=== PATIENT | female | born 1965 ===

== ENCOUNTER 2020-07-29 14:28 | Outpatient (REF) | payer MEDICAID, SELFPAY ==
--- NOTE | ~2020-07-29 | XR_ITS ---
EXAMINATION: XR SHOULDER, LEFT CLINICAL INFORMATION: Pain COMPARISON: Left humerus x-ray May 2019 and previous chest x-ray April 2019 TECHNIQUE: AP external rotation, Grashey, scapular Y, and axillary views of the left shoulder. FINDINGS: Bone alignment is normal. No fracture or dislocation is seen. The glenohumeral joint is normal. There is arthritis at the acromioclavicular joint. The aortic arch may be tortuous or ectatic. This is similar to previous exams. Soft tissues are otherwise unremarkable. XR/XR shoulder LT min 2V IMPRESSION: Arthritis at the acromioclavicular joint.
== END 2020-07-29 14:29 | disposition home or self-care (01) ==
LOC: HO.XRAY 14:28
PROVIDERS: PCP Internal Medicine; Visit Provider Internal Medicine
DX: M25.512 Pain in left shoulder (principal)
CPT/HCPCS: 73030

== ENCOUNTER 2020-08-31 15:27 | Outpatient (REF) | payer MEDICAID, SELFPAY ==
--- NOTE | ~2020-08-31 | US_ITS ---
EXAMINATION: US PELVIS COMPLETE CLINICAL INFORMATION: Abnormal vaginal bleeding. COMPARISON: Ultrasound pelvis 09/18/2018 TECHNIQUE: Transabdominal and transvaginal imaging of pelvis is performed. FINDINGS: The uterus is anteverted measuring 8.8 cm in length, 4.2 cm in AP and 4.7 cm wide. There are 2 hypoechoic lesions seen. 1. Lesion in the right fundus of uterus is complex and cystic and measures 2.5 x 2.4 x 3.4 cm. Previously it measured 1.2 x 1.5 x 1.4 cm. 2. Lesion in the lower anterior uterine segment measures 1.1 x 1.3 x 1.7 cm and is new. The endometrial thickness is 0.3 cm and appears unremarkable. The right ovary measures 1.8 x 1.8 x 1.0 cm and volume 1.7 mL. There are 2 anechoic lesions in the paraovarian region. They measure 1.7 x 1.2 x 1.2 cm and 1.4 x 1.1 x 1.0 cm. There is a tubular anechoic area in the right adnexa, question hydrosalpinx. The left ovary is not visualized. Previously it measured 2.7 x 1.7 x 2.2 cm and volume 5.2 mL. There is no free fluid in the cul-de-sac. US/US transvaginal IMPRESSION: Two paraovarian lesions likely moderate cysts. Two uterine fibroids. The larger uterine fibroid appears now complex and cystic compared to solid lesion before. There is a new fibroid visualized. The left ovary is not seen. There is no free fluid in the cul-de-sac.
--- NOTE | ~2020-08-31 | US_ITS ---
EXAMINATION: US PELVIS COMPLETE CLINICAL INFORMATION: Abnormal vaginal bleeding. COMPARISON: Ultrasound pelvis 09/18/2018 TECHNIQUE: Transabdominal and transvaginal imaging of pelvis is performed. FINDINGS: The uterus is anteverted measuring 8.8 cm in length, 4.2 cm in AP and 4.7 cm wide. There are 2 hypoechoic lesions seen. 1. Lesion in the right fundus of uterus is complex and cystic and measures 2.5 x 2.4 x 3.4 cm. Previously it measured 1.2 x 1.5 x 1.4 cm. 2. Lesion in the lower anterior uterine segment measures 1.1 x 1.3 x 1.7 cm and is new. The endometrial thickness is 0.3 cm and appears unremarkable. The right ovary measures 1.8 x 1.8 x 1.0 cm and volume 1.7 mL. There are 2 anechoic lesions in the paraovarian region. They measure 1.7 x 1.2 x 1.2 cm and 1.4 x 1.1 x 1.0 cm. There is a tubular anechoic area in the right adnexa, question hydrosalpinx. The left ovary is not visualized. Previously it measured 2.7 x 1.7 x 2.2 cm and volume 5.2 mL. There is no free fluid in the cul-de-sac. US/US pelvic complete IMPRESSION: Two paraovarian lesions likely moderate cysts. Two uterine fibroids. The larger uterine fibroid appears now complex and cystic compared to solid lesion before. There is a new fibroid visualized. The left ovary is not seen. There is no free fluid in the cul-de-sac.
== END 2020-08-31 15:28 | disposition home or self-care (01) ==
LOC: HO.US 15:27
PROVIDERS: Visit Provider Family Medicine
DX: N93.8 Other specified abnormal uterine and vaginal bleeding (principal)
CPT/HCPCS: 76830; 76856

== ENCOUNTER 2021-02-08 19:30 | Emergency (ER) | payer MEDICAID, SELFPAY ==
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
[2021-02-08 19:38] VITALS: BP 130/72; BP 175/69; PULSE 101; PULSE 106; RESP 16; TEMP 36.2; O2SAT 98; BMI 26.5
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
[2021-02-08] MEDS: Ketorolac Tromethamine 15 MG/ML VIAL IM (20:20)
[2021-02-08] MEDS: Diphth,Pertus(ACell),Tet Adult 0.5 ML SYRINGE IM (20:23)
[2021-02-08] MEDS: dexAMETHasone 2 MG TABLET 10 MG PO (20:29)
== END 2021-02-08 21:18 | disposition home or self-care (01) ==
PROVIDERS: Emergency Provider Student in an Organized Health Care Education/Training Program
DX: S20.213A Contusion of bilateral front wall of thorax, initial encounter (principal); R07.81 Pleurodynia; V19.9XXA Pedal cyclist (driver) (passenger) injured in unspecified traffic accident, initial encounter; Y93.55 Activity, bike riding; Y92.410 Unspecified street and highway as the place of occurrence of the external cause; Y99.9 Unspecified external cause status; F41.9 Anxiety disorder, unspecified; F43.0 Acute stress reaction; R05 Cough; Z79.899 Other long term (current) drug therapy
CPT/HCPCS: 71046; 90471; 90715; 96372; 99284; J1790; J1885; J8540

== ENCOUNTER 2021-02-22 03:36 | Emergency (ER) | payer MEDICAID, SELFPAY ==
--- NOTE | ~2021-02-22 | XR_ITS ---
EXAMINATION: XR CHEST CLINICAL INFORMATION: Cough COMPARISON: 02/08/2021 TECHNIQUE: Frontal view of the chest was obtained. FINDINGS: Normal symmetric lung volumes. No parenchymal consolidation. No pleural effusion. No pneumothorax. Cardiomediastinal silhouette and pulmonary vascularity are within normal limits. Aorta is atherosclerotic. No acute osseous abnormalities. XR/XR chest 1V IMPRESSION: Unremarkable examination.
[2021-02-22 03:45] VITALS: BP 140/100; BP 142/91; PULSE 109; PULSE 98; RESP 16; TEMP 36.2; O2SAT 98; O2SAT 99; BMI 25.6
--- NOTE | 2021-02-22 03:52 | ECG_ITS ---
Test Reason : ASTHMA Blood Pressure : / mmHG Vent. Rate : 082 BPM Atrial Rate : 082 BPM P-R Int : 128 ms QRS Dur : 096 ms QT Int : 384 ms P-R-T Axes : 062 -15 033 degrees QTc Int : 448 ms Normal sinus rhythm Nonspecific ST and T wave abnormality Abnormal ECG When compared with ECG of 08-JUL-2019 15:24, No significant change was found Referred By: Generic ED Physician Electronically Signed By:JAZMYNE NETTLES
[2021-02-22 03:54] VITALS: BP 142/91; PULSE 98; RESP 16; TEMP 36.2; O2SAT 99
[2021-02-22 04:19] LABS: MANUAL DIFF FLAG NO
[2021-02-22 04:20] LABS: Basophils Absolute Auto 0.1 X10*3/uL (0.0-0.2); Basophils Percent Auto 0.6 % (0-2); Eosinophils Absolute Auto 0.4 X10*3/uL (0.0-0.4); Eosinophils Percent Auto 3.9 % (0-4); Hematocrit 34.7 % (37-47); Hemoglobin 12.2 g/dl (12.0-16.0); Imm Gran Abs Auto 0.04 X10*3/uL (0.00-0.03); Imm Gran Pct Auto 0.4 % (0.0-0.4); Lymphocytes Absolute Auto 1.6 X10*3/uL (1.2-4.9); Lymphocytes Percent Auto 16.8 % (20-40); Mean Corpuscular HGB Conc 35.2 g/dl (31.0-35.0); Mean Corpuscular Volume 85.3 fL (80-98); Mean Platelet Volume 10.3 fL (9.4-12.3); Monocytes Absolute Auto 0.7 X10*3/uL (0.1-1.2); Neutrophils Absolute Auto 6.9 X10*3/uL (2.0-8.3); Neutrophils Percent Auto 71.3 % (45-73); Platelet Count 234 X10*3/uL (160-400); Red Blood Count 4.07 X10*6/uL (4.20-5.50); Red Cell Distribution Width 12.5 % (11.0-16.0); White Blood Count 9.6 X10*3/uL (4.8-10.8)
[2021-02-22 04:36] LABS: COVID-19 Test Negative (Negative); IDNOW Serial# 9DD0AD1C
[2021-02-22 04:38] LABS: Anion Gap 17 (12-20); Blood Urea Nitrogen 29 mg/dL (9-16); Calcium 10.1 mg/dL (8.4-10.2); Carbon Dioxide 29 mmol/L (22-29); Chloride 93 mmol/L (96-108); Creatinine Clr Calc Pharmacy 50.7; Estimated Glomerular Filt Rate 53; Glucose Random 250 mg/dL (60-115); Potassium 2.9 mmol/L (3.3-5.1); Sodium 136 mmol/L (135-145)
[2021-02-22 04:43] LABS: B Type Natriuretic Peptide < 10 pg/mL (<100); Troponin-I High Sensitivity < 3.5 ng/L (<3.5-17.0)
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
[2021-02-22] MEDS: Albuterol Sulfate 90 MCG 8 GM INHALER 4 PUFF INHALE (04:53)
[2021-02-22] MEDS: methylPREDNISolone Sod Succ 125 MG/2 ML VIAL IVPUSH (04:54)
[2021-02-22 05:35] VITALS: BP 142/83; PULSE 112; RESP 16; O2SAT 98
[2021-02-22] MEDS: Potassium Chloride ER 20 MEQ TAB.ER.PRT 60 MEQ PO (05:35)
[2021-02-22] MEDS: Albuterol Sulfate (0.083%) 2.5 MG/3 ML VIAL.NEB 5 MG INHALE (06:42)
[2021-02-22 06:43] VITALS: PULSE 112; O2SAT 98
== END 2021-02-22 07:34 | disposition home or self-care (01) ==
PROVIDERS: Emergency Provider Student in an Organized Health Care Education/Training Program; PCP Internal Medicine
DX: J45.902 Unspecified asthma with status asthmaticus (principal); R05 Cough; E87.6 Hypokalemia; R51.9 Headache, unspecified; R06.02 Shortness of breath; Z20.822 Contact with and (suspected) exposure to COVID-19; Z79.899 Other long term (current) drug therapy
CPT/HCPCS: 36415; 71045; 80048; 83880; 84484; 85025; 87635; 93005; 94640; 96374; 99284; 99285; J2930

== ENCOUNTER 2021-02-26 10:58 | Emergency (ER) | payer MEDICAID, SELFPAY ==
--- NOTE | ~2021-02-26 | XR_ITS ---
EXAMINATION: XR CHEST CLINICAL INFORMATION: Cough COMPARISON: Chest radiograph from 02/22/2021 TECHNIQUE: 2 views of the chest were obtained. FINDINGS: No focal consolidation. No pneumothorax. Trachea is midline. Cardiomediastinal silhouette is not enlarged. No large pleural effusions. Degenerative changes of the thoracolumbar spine. Soft tissues are unremarkable. XR/XR chest 2V IMPRESSION: No acute cardiopulmonary process.
--- NOTE | ~2021-02-26 | CT_ITS ---
EXAMINATION: CT ABDOMEN AND PELVIS WITH CONTRAST CLINICAL INFORMATION: Left lower quadrant pain, left CVA tenderness COMPARISON: None TECHNIQUE: Multidetector volumetric images were obtained from the superior aspect of the liver through the pubic symphysis following administration 85 mL of Omnipaque 350 intravenous contrast. Sagittal and coronal reformatted images were obtained on the technologist's workstation. Oral contrast: No This CT examination was performed using dose optimization techniques as appropriate, variously including the following: *Automated exposure control *Adjustment of mA and/or kV according to patient size (this includes techniques or standardized protocols for targeted exams where dose is matched to indication/reason for exam; i.e. extremities or head) *Use of iterative reconstruction technique DLP: 472.31 mGy-cm FINDINGS: LUNG BASES: The heart is not enlarged. No pericardial effusion. LIVER, GALLBLADDER, AND BILIARY TREE: The liver is normal in shape. Enlarged right hepatic lobe. Decreased hepatic attenuation suggesting hepatic steatosis. No focal hepatic lesion or biliary ductal dilatation is present. The gallbladder is unremarkable with no evidence of radiopaque gallstones, gallbladder wall thickening, or obvious pericholecystic inflammatory changes. PANCREAS: Unremarkable. SPLEEN: Unremarkable. Subcentimeter cystic foci are noted at the inferior pole of the spleen, nonspecific and too small to characterize. ADRENAL GLANDS: Unremarkable. KIDNEYS AND URETERS: Multiple hypodensities in the right kidney the largest appearing in the right renal upper pole demonstrating fluid attenuation, statistically representing a cyst measuring up to 3.0 cm. The kidneys are normal in size, shape, and attenuation. No hydronephrosis, hydroureter, or calculi seen. No perinephric stranding. BLADDER: Unremarkable. GASTROINTESTINAL TRACT: Very slight colonic diverticulosis without acute diverticulitis. The small and large bowel are unremarkable. The appendix is unremarkable. ABDOMINAL WALL: No significant hernia is appreciated. LYMPH NODES: No enlarged lymph nodes per size criteria. VASCULAR: Abdominal aorta is nonaneurysmal. Pelvic phleboliths are visualized. PELVIC VISCERA: Uterine fundal hypodensity noted measuring 1.9 cm demonstrating fluid attenuation possibly representing a degenerating fibroid versus cyst. OSSEOUS STRUCTURES: Very mild degenerative changes of the thoracolumbar spine. No large lytic or blastic lesions are noted. CT/CT abdomen pelvis w con IMPRESSION: 1. No acute process of the abdomen or pelvis identified. 2. Decreased hepatic attenuation suggesting hepatic steatosis. 3. Enlargement of the right hepatic lobe. 4. Subcentimeter cystic foci are noted at the inferior pole of the spleen, nonspecific and too small to characterize. 5. Right renal hypodensities demonstrating fluid attenuation, statistically representing cysts. 6. Very mild colonic diverticulosis without acute diverticulitis. 7. Uterine fundal hypodensity noted measuring 1.9 cm demonstrating fluid attenuation possibly representing a degenerating fibroid versus cyst.
[2021-02-26 11:02] VITALS: BP 147/86; PULSE 81; RESP 16; TEMP 36.3; O2SAT 98; BMI 25.7
--- NOTE | 2021-02-26 11:18 | ED.RECABL ---
HPI - Recheck/Abnormal Lab/Rx General Chief Complaint: Recheck/Abnormal Lab/Rx Stated Complaint: abnormal labs - ?potassium levels Time Seen by Provider: 02/26/21 11:17 Source: patient Mode of arrival: ambulatory Limitations: no limitations History of Present Illness HPI narrative: 55-year-old female presents for lab check after being sent here from the clinic she went to yesterday. Patient has a past medical history of asthma, hypertension, anxiety, was seen in our emergency room for asthma 4 days ago. Patient had a potassium of that time of 2.9. She was given 40 mg a day of prednisone, and a fluticasone inhaler. Patient states she cannot use her nebulizer at home because she has electricity at home. States that she got pain all over her body from using the fluticasone inhaler, she was shaking and itching. She has still been a little short of breath and a little wheezy with chest pain that feels like her asthma. She has had this chest pain for 2 days. States she has pain in her abdomen, especially left lower quadrant pain that started 2 days ago. She had diarrhea twice yesterday, no nausea or vomiting. Pt is post-menopausal. Related Data Previous Rx's Medication Instructions Recorded fluticasone 500 mcg-salmeterol 50 1 inh INHALATION Q12H #1 ea 05/25/ mcg/dose blistr powdr for inhalation prednisone 20 mg tablet 40 mg PO DAILY 4 Days #8 tab 02/22/21 potassium chloride 10 mEq 10 meq PO DAILY 30 Days #30 cap 02/26/21 capsule,extended release prednisone 20 mg tablet 60 mg PO DAILY 5 Days #15 tab 02/26/21 Allergies Allergy/AdvReac Type Severity Reaction Status Date / Time apple [Apple] Allergy Severe ANAPHYLAXIS Unverified 02/27/20 17:43 avocado [Avocado] Allergy Severe ANAPHYLAXIS Unverified 02/27/20 17:43 fexofenadine [From RALPH] Allergy Severe ANAPHYLAXIS Unverified 02/27/20 17:43 peanut [Peanut] Allergy Severe ANAPHYLAXIS Unverified 02/27/20 17:43 acetaminophen [Percocet] Allergy Unknown nausea and Verified 11/12/18 00:00 vomiting Ralph Allergy Unknown rash, Unverified 11/12/18 00:00 swollen throat naproxen [From NAPROSYN] Allergy Unknown UNKNOWN Unverified 02/27/20 17:43 oxycodone [From PERCOCET] AdvReac Severe NAUSEA, Unverified 02/27/20 17:43 DIZZINESS, FALLS Review of Systems Constitutional: Constitutional: Reports body ache(s), Denies chills, Denies fatigue, Denies fever(s), Denies headache(s), Denies malaise and Denies weakness Eyes: Eyes: Denies diplopia ENT: Denies vertigo, Denies dizziness, Denies otalgia, Denies headache(s), Denies mouth pain, Denies post nasal drip, Denies sinus pain, Denies sinus pressure, Denies sore throat and Denies throat swelling Cardiovascular: Cardiovascular: Reports chest pain, Denies syncope, Denies leg edema, Denies lightheadedness, Denies Loss of Consciousness, Denies palpitations and Reports dyspnea Respiratory: Respiratory: Reports chest congestion, Reports cough, Reports dyspnea and Reports wheezing Gastrointestinal: Gastrointestinal: Reports abdominal pain, Denies hematochezia, Denies constipation, Reports diarrhea and Denies vomiting Genitourinary: Genitourinary: Reports no additional female genitourinary complaints Musculoskeletal: Musculoskeletal: Reports myalgias Integumentary/Breasts: Skin/Breast: Denies erythema and Denies rash Neurologic: Denies confusion, Denies vertigo, Denies dizziness, Denies syncope, Denies headache(s) and Denies weakness Psychiatric: Psychiatric: Reports anxiety, Denies confusion and Denies depression Endocrine: Endocrine: Denies fatigue and Denies palpitations Allergic/Immunologic: Allergic/Immunologic: Denies throat swelling and Reports wheezing PMFSH Past Medical History Medical History Anxiety Diabetes Hypertension Social History Social History Alcohol intake: current Alcohol intake frequency: holidays/special occasions only Patient Tobacco Use Status: Never used Tobacco Use of substances other than those prescribed or required for medical reasons: No Substance Use Type: Marijuana Advance Directives: No Advance Directives Information Provided: No Patient : No Physical Exam Vital Signs: Vital Signs: Last Vital Signs Temp 97.4 F 02/26/21 11:02 Pulse 60 02/26/21 14:16 Resp 16 02/26/21 12:22 BP 126/71 02/26/21 12:22 Pulse Ox 95 02/26/21 12:22 Body Mass Index 25.7 Const: General: No confusion Nutritional Appearance: well nourished Orientation/consciousness: No confusion Limitations: no limitations HENMT: Head: Yes normal to inspection, Yes normocephalic and Yes atraumatic Ears: hearing grossly normal bilaterally Mouth: Normal oral and palatal mucosa present Throat: Yes posterior oropharynx normal Eyes: Conjunctivae: conjunctivae normal Pupils: Equal, round and reactive pupils present EOM: EOMs intact bilaterally Neck: Neck: Yes full ROM, Yes no lymphadenopathy and Yes supple Resp: Effort & Inspection: normal respiratory effort and able to speak in complete sentences Auscultation: no crackles, no rales, no rhonchi and wheezes throughout Cardio: Rate: regular rate Rhythm: regular rhythm Heart sounds: S1 normal heart sound present and S2 normal heart sound present GI: Inspection: Yes normal to inspection Palpation (GI): Soft to palpation, not firm, Tenderness to palpation present (GI) in the LLQ, Guarding due to palpation present (GI) in the LLQ and not rigid Percussion: Yes normal to percussion Auscultation: normal bowel sounds : General: Yes CVA tenderness on the left Back/Spine/Pelvis: Back: CVA tenderness Skin: General skin exam: no rashes or lesions noted Neuro: General: No confusion Cranial nerves: Yes Equal, round and reactive pupils present Extrem: General: Yes normal to inspection and Yes full ROM Psych: Appearance: grossly normal Affect: Anxious affect present Attitude: cooperative Thought process: Normal thought process present Course Course Course Narrative: 55-year-old female presents for pain ?all over? after using fluticasone inhaler 3 days ago. Also has had 2 days of lower left quadrant pain. On exam, patient has stable vitals, patient is tender and guarding in her left lower quadrant with left CVA tenderness. Lungs are wheezy diffusely, patient is not in respiratory distress. Will get x-ray, labs, EKG, CT abdomen. Reevaluation(s) Reevaluation #1: Patient's potassium of 3.2, glucose of 263, LFTs are normal. Repleted potassium with oral potassium Troponin and lipase are negative, EKG shows no acute ischemia Chest x-ray shows no consolidation, and COVID is negative Reevaluation #2: Patient refused albuterol inhaler, will try albuterol nebulizer Reevaluation #3: Patient is moving much better air, lungs clear to auscultation bilaterally, wheezes have resolved. CT abdomen shows nothing acute, shows fatty liver, cysts and spleen and kidneys, a uterine fibroid, mild diverticulosis, no diverticulitis. Will send patient home with potassium supplements, increase her prednisone, counseled her to find a way to plug in her nebulizer machine so she can get a nebulizer treatment at least twice a day despite not having electricity in her apartment, patient refuses albuterol inhaler, as she thinks the gives her pain. Counseled Tylenol for pain. Counseled follow-up with her primary care MDM - Recheck/Abnormal Lab/Rx Lab Data Result diagrams: 02/26/21 11:42 02/26/21 11:42 Labs: Lab Results 02/26/21 02/26/21 02/26/21 Range/Units 11:42 11:42 11:45 WBC 7.0 (4.8-10.8) X10*3/uL RBC 3.96 L (4.20-5.50) X10*6/uL Hgb 11.8 L (12.0-16.0) g/dl Hct 34.3 L (37-47) % MCV 86.6 (80-98) fL MCH 29.8 (27.0-33.0) pg MCHC 34.4 (31.0-35.0) g/dl RDW 12.6 (11.0-16.0) % Plt Count 218 (160-400) X10*3/uL MPV 10.5 (9.4-12.3) fL Immature Gran % (Auto) 0.3 (0.0-0.4) % Neut % (Auto) 61.3 (45-73) % Lymph % (Auto) 27.9 (20-40) % [place] % (Auto) 6.6 (2-11) % Eos % (Auto) 3.6 (0-4) % Baso % (Auto) 0.3 (0-2) % Lymph # (Auto) 1.9 (1.2-4.9) X10*3/uL [place] # (Auto) 0.5 (0.1-1.2) X10*3/uL Eos # (Auto) 0.3 (0.0-0.4) X10*3/uL Baso # (Auto) 0.0 (0.0-0.2) X10*3/uL Abs Immat Gran (auto) 0.02 (0.00-0.03) X10*3/uL Absolute Neuts (auto) 4.3 (2.0-8.3) X10*3/uL Absolute Nucleated RBC 0.000 (0.0-0.012) X10*3/uL Nucleated RBC % (auto) 0.0 (0.0-0.2) /100WBC Sodium 136 (135-145) mmol/L Potassium 3.2 L (3.3-5.1) mmol/L Chloride 94 L (96-108) mmol/L Carbon Dioxide 33 H (22-29) mmol/L Anion Gap 12 (12-20) BUN 22 H (9-16) mg/dL Creatinine 1.06 (0.5-1.4) mg/dL Estim Creat Clear Calc 51.4 Estimated GFR 53 Random Glucose 263 H (60-115) mg/dL Calcium 9.9 (8.4-10.2) mg/dL Total Bilirubin 0.6 (0.0-1.0) mg/dL AST 17 (5-31) U/L ALT 25 (0-31) U/L Alkaline Phosphatase 77 (39-117) U/L Troponin I High Sens (<3.5-17.0) ng/L Total Protein 7.0 (6.5-8.0) g/dL Albumin 4.5 (3.5-5.0) g/dL Lipase (8-78) U/L Urine Color YELLOW Urine Appearance CLEAR Urine pH 6.0 (5.0-8.0) Ur Specific [place] >= 1.030 H (1.005-1.025) Urine Protein NEG (NEG-TRACE) MG/DL Urine Glucose (UA) NEG (NEG) MG/DL Urine Ketones NEG (NEG) MG/DL Urine Blood NEG (NEG) Urine Nitrite NEG (NEG) Ur Leukocyte Esterase NEG (NEG) COVID-19 (NIGEL) (Negative) COVID-19 Clin Com 02/26/21 02/26/2121 Range/Units 12:32 12:32 12:32 WBC (4.8-10.8) X10*3/uL RBC (4.20-5.50) X10*6/uL Hgb (12.0-16.0) g/dl Hct (37-47) % MCV (80-98) fL MCH (27.0-33.0) pg MCHC (31.0-35.0) g/dl RDW (11.0-16.0) % Plt Count (160-400) X10*3/uL MPV (9.4-12.3) fL Immature Gran % (Auto) (0.0-0.4) % Neut % (Auto) (45-73) % Lymph % (Auto) (20-40) % [place] % (Auto) (2-11) % Eos % (Auto) (0-4) % Baso % (Auto) (0-2) % Lymph # (Auto) (1.2-4.9) X10*3/uL [place] # (Auto) (0.1-1.2) X10*3/uL Eos # (Auto) (0.0-0.4) X10*3/uL Baso # (Auto) (0.0-0.2) X10*3/uL Abs Immat Gran (auto) (0.00-0.03) X10*3/uL Absolute Neuts (auto) (2.0-8.3) X10*3/uL Absolute Nucleated RBC (0.0-0.012) X10*3/uL Nucleated RBC % (auto) (0.0-0.2) /100WBC Sodium (135-145) mmol/L Potassium (3.3-5.1) mmol/L Chloride (96-108) mmol/L Carbon Dioxide (22-29) mmol/L Anion Gap (12-20) BUN (9-16) mg/dL Creatinine (0.5-1.4) mg/dL Estim Creat Clear Calc Estimated GFR Random Glucose (60-115) mg/dL Calcium (8.4-10.2) mg/dL Total Bilirubin (0.0-1.0) mg/dL AST (5-31) U/L ALT (0-31) U/L Alkaline Phosphatase (39-117) U/L Troponin I High Sens < 3.5 (<3.5-17.0) ng/L Total Protein (6.5-8.0) g/dL Albumin (3.5-5.0) g/dL Lipase 11 (8-78) U/L Urine Color Urine Appearance Urine pH (5.0-8.0) Ur Specific [place] (1.005-1.025) Urine Protein (NEG-TRACE) MG/DL Urine Glucose (UA) (NEG) MG/DL Urine Ketones (NEG) MG/DL Urine Blood (NEG) Urine Nitrite (NEG) Ur Leukocyte Esterase (NEG) COVID-19 (NIGEL) Negative (Negative) COVID-19 Clin Com See Note ECG Data Interpretation: Sinus at a rate of 68, NV 120, QRS 102, QTC 465, normal axis, no ST elevations or depressions, nonspecific T-wave flattening Discharge Plan Discharge Clinical Impression: Acute hypokalemia Abdominal pain Qualifiers: Abdominal location: left lower quadrant Qualified Code(s): R10.32 - Left lower quadrant pain Asthma Qualifiers: Asthma severity: moderate Asthma persistence: unspecified Asthma complication type: with acute exacerbation Qualified Code(s): J45.901 - Unspecified asthma with (acute) exacerbation Patient Disposition: Home, Self-Care Instructions: Asthma (ED), Hypokalemia (ED), Abdominal Pain (ED) Additional Instructions: Please take potassium supplements I have prescribed for you. Foods that contain a lot of potassium include dark leafy green and orange juice. Please STOP the prednisone prescription you have now and START the prednisone prescription I am prescribing for you today Please find a way to plug in your nebulizer machine so you can get at least 2 treatments a day for the next 5 days. Call your primary care provider this afternoon for follow-up appointment within the next 2 weeks. You will need to have your potassium rechecked in the next 2 weeks. Prescriptions: New prednisone 20 mg tablet 60 mg PO DAILY 5 Days Qty: 15 RF: 0 potassium chloride 10 mEq capsule, extended release 10 meq PO DAILY 30 Days Qty: 30 RF: 0 No Action fluticasone propion-salmeterol 500-50 mcg/dose blister with device 1 inh inhalation Q12H Qty: 1 RF: 8 prednisone 20 mg tablet 40 mg PO DAILY 4 Days Qty: 8 RF: 0
[2021-02-26 11:54] LABS: MANUAL DIFF FLAG NO
[2021-02-26 11:56] LABS: Basophils Percent Auto 0.3 % (0-2); Eosinophils Absolute Auto 0.3 X10*3/uL (0.0-0.4); Eosinophils Percent Auto 3.6 % (0-4); Hematocrit 34.3 % (37-47); Hemoglobin 11.8 g/dl (12.0-16.0); Imm Gran Abs Auto 0.02 X10*3/uL (0.00-0.03); Imm Gran Pct Auto 0.3 % (0.0-0.4); Lymphocytes Absolute Auto 1.9 X10*3/uL (1.2-4.9); Lymphocytes Percent Auto 27.9 % (20-40); Mean Corpuscular HGB Conc 34.4 g/dl (31.0-35.0); Mean Corpuscular Hemoglobin 29.8 pg (27.0-33.0); Mean Corpuscular Volume 86.6 fL (80-98); Mean Platelet Volume 10.5 fL (9.4-12.3); Monocytes Absolute Auto 0.5 X10*3/uL (0.1-1.2); Monocytes Percent Auto 6.6 % (2-11); Neutrophils Absolute Auto 4.3 X10*3/uL (2.0-8.3); Neutrophils Percent Auto 61.3 % (45-73); Platelet Count 218 X10*3/uL (160-400); Red Blood Count 3.96 X10*6/uL (4.20-5.50); Red Cell Distribution Width 12.6 % (11.0-16.0)
--- NOTE | 2021-02-26 12:03 | ECG_ITS ---
Test Reason : LOW POTASSIUM Blood Pressure : / mmHG Vent. Rate : 068 BPM Atrial Rate : 068 BPM P-R Int : 128 ms QRS Dur : 102 ms QT Int : 438 ms P-R-T Axes : 016 -19 029 degrees QTc Int : 465 ms Normal sinus rhythm Incomplete right bundle branch block Nonspecific T wave abnormality Prolonged QT Abnormal ECG When compared with ECG of 22-FEB-2021 04:09, Nonspecific T wave abnormality no longer evident in Lateral leads Referred By: Demi Moeller Electronically Signed By:JAZMYNE NETTLES
[2021-02-26 12:05] LABS: Appearance Urine CLEAR; Color Urine YELLOW; Glucose Urine UA NEG (NEG); Leukocyte Esterase Urine NEG (NEG); Nitrite Urine NEG (NEG); Specific Gravity - Urine >= 1.030 (1.005-1.025); Urine Blood NEG (NEG); Urine Ketones NEG (NEG); Urine Protein NEG (NEG-TRACE)
[2021-02-26 12:12] LABS: Alanine Aminotransferase 25 U/L (0-31); Albumin Level 4.5 g/dL (3.5-5.0); Alkaline Phosphatase 77 U/L (39-117); Anion Gap 12 (12-20); Aspartate Amino Transferase 17 U/L (5-31); Bilirubin Total 0.6 mg/dL (0.0-1.0); Blood Urea Nitrogen 22 mg/dL (9-16); Calcium 9.9 mg/dL (8.4-10.2); Carbon Dioxide 33 mmol/L (22-29); Chloride 94 mmol/L (96-108); Creatinine Clr Calc Pharmacy 51.4; Estimated Glomerular Filt Rate 53; Glucose Random 263 mg/dL (60-115); Potassium 3.2 mmol/L (3.3-5.1); Sodium 136 mmol/L (135-145)
[2021-02-26] MEDS: ondansetron HCL 4 MG/2 ML VIAL IVPUSH (12:15)
[2021-02-26] MEDS: 0.9 % Sodium Chloride 1,000 ML 999 ML IV (12:15)
[2021-02-26] MEDS: Morphine Sulfate 4 MG/ML CARTRIDGE IVPUSH (12:18)
[2021-02-26] MEDS: methylPREDNISolone Sod Succ 125 MG/2 ML VIAL IVPUSH (12:20)
[2021-02-26 12:22] VITALS: BP 126/71; PULSE 69; RESP 16; O2SAT 95
--- NOTE | 2021-02-26 12:24 | PC.NURSE ---
Pt reports not feeling well after having nebulizer treatment including body aches, shaking and itching. Pt remains with exp wheezes today and ls tight. Pt also reports llq abd pain x 3 days, worse since seen here 3 days ago. no nausea/vomiting. Pt also states sent here for low k+, nsr on tele rate 60s, ekg completed
--- NOTE | 2021-02-26 12:39 | PC.NURSE ---
out of room for xray
[2021-02-26 12:59] LABS: Lipase 11 U/L (8-78)
[2021-02-26 13:05] LABS: Troponin-I High Sensitivity < 3.5 ng/L (<3.5-17.0)
[2021-02-26 13:13] LABS: COVID-19 Test Negative (Negative); IDNOW Serial# 9DD0AD1C
[2021-02-26] MEDS: Potassium Chloride Packet 20 MEQ PACKET 40 MEQ PO (13:52)
[2021-02-26] MEDS: iohexoL 350 MG/ML 100 ML INFUS..BTL IV (13:58)
[2021-02-26] MEDS: Albuterol/Iprat 2.5/0.5MG 3 ML AMPUL.NEB INHALE (14:13)
[2021-02-26 14:16] VITALS: PULSE 60
[2021-02-26 15:25] VITALS: BP 129/83; PULSE 68; RESP 18; O2SAT 96
== END 2021-02-26 15:30 | disposition home or self-care (01) ==
PROVIDERS: Physician Assistant; Emergency Provider Emergency Medicine; PCP Internal Medicine
DX: E87.6 Hypokalemia (principal); J45.901 Unspecified asthma with (acute) exacerbation; R79.89 Other specified abnormal findings of blood chemistry; R10.32 Left lower quadrant pain; Z20.822 Contact with and (suspected) exposure to COVID-19; Z79.899 Other long term (current) drug therapy
CPT/HCPCS: 36415; 71046; 74177; 80053; 81003; 83690; 84484; 85025; 87635; 93005; 96361; 96374; 96375; 99284; J2270; J2405; J2930; Q9967

== ENCOUNTER 2021-09-29 14:30 | Outpatient (REF) | payer MEDICAID, SELFPAY ==
[2021-09-29 15:27] LABS: Anion Gap 14 (12-20); Blood Urea Nitrogen 14 mg/dL (9-16); Calcium 9.9 mg/dL (8.4-10.2); Carbon Dioxide 28 mmol/L (22-29); Chloride 103 mmol/L (96-108); Estimated Glomerular Filt Rate > 60; Potassium 4.1 mmol/L (3.3-5.1); Sodium 141 mmol/L (135-145)
== END 2021-09-29 14:31 | disposition home or self-care (01) ==
LOC: HO.LAB 14:30
PROVIDERS: PCP Internal Medicine; Visit Provider Internal Medicine Hypertension Specialist
DX: I10 Essential (primary) hypertension (principal)
CPT/HCPCS: 36415; 80051; 82310; 82565; 84520

== ENCOUNTER 2021-11-22 13:44 | Outpatient (REF) | payer MEDICAID, SELFPAY ==
[2021-11-22 14:49] LABS: Anion Gap 11 (12-20); Blood Urea Nitrogen 11 mg/dL (9-16); Carbon Dioxide 31 mmol/L (22-29); Chloride 102 mmol/L (96-108); Estimated Glomerular Filt Rate > 60; Glucose Random 137 mg/dL (60-115); Potassium 4.3 mmol/L (3.3-5.1); Sodium 140 mmol/L (135-145)
== END 2021-11-22 13:45 | disposition home or self-care (01) ==
LOC: HO.LAB 13:44
PROVIDERS: PCP Internal Medicine; Visit Provider Internal Medicine Hypertension Specialist
DX: I10 Essential (primary) hypertension (principal)
CPT/HCPCS: 36415; 80048

== ENCOUNTER 2021-11-30 12:42 | Outpatient (REF) | payer MEDICAID, SELFPAY ==
--- NOTE | ~2021-11-30 | MM_ITS ---
EXAMINATION: MM SCREENING DIGITAL BREAST TOMOSYNTHESIS, BILATERAL CLINICAL INFORMATION: Screening. Asymptomatic. The lifetime risk of breast cancer based on the Tyrer-Cuzick Model is 6%. COMPARISON: Mammography: 03/01/2018, 02/18/2017, 09/23/2015 TECHNIQUE: Digital breast tomosynthesis is performed in both the craniocaudal and mediolateral oblique views along with computer-aided detection (CAD). Synthesized 2D images are generated from the tomosynthesis. FINDINGS: The breasts are heterogeneously dense, which may obscure small masses (ACR BI-RADS breast composition Category c). There are no significant masses, abnormal calcifications, or other abnormalities. Parenchymal pattern is similar to prior studies. The axilla and skin contours are unremarkable. MM/MM tomosynthesis screening BI IMPRESSION: No mammographic evidence of malignancy. ASSESSMENT: BI-RADS 1: Negative RECOMMENDATION: Routine annual mammography screening. This patient's information was entered into a reminder system with a target due date for their next mammogram.
== END 2021-11-30 12:43 | disposition home or self-care (01) ==
LOC: HO.MAMMO 12:42
PROVIDERS: PCP Internal Medicine; Visit Provider Internal Medicine
DX: Z12.31 Encounter for screening mammogram for malignant neoplasm of breast (principal)
CPT/HCPCS: 77063; 77067

== ENCOUNTER 2022-01-04 15:19 | Outpatient (REF) | payer MEDICAID, SELFPAY ==
[2022-01-05 12:21] LABS: CT PCR NOT DETECTED (Not Detect.); NG PCR NOT DETECTED (Not Detect.)
[2022-01-10 23:27] LABS: HPV mRNA E6/E7 rflx Not Detected (Not Detected)
== END 2022-01-04 15:20 | disposition home or self-care (01) ==
LOC: HO.LAB 15:19
PROVIDERS: Visit Provider Obstetrics & Gynecology
DX: Z01.419 Encounter for gynecological examination (general) (routine) without abnormal findings (principal); Z11.51 Encounter for screening for human papillomavirus (HPV); R10.2 Pelvic and perineal pain
CPT/HCPCS: 87491; 87591; 87624; 88142

== ENCOUNTER 2022-01-12 15:25 | Emergency (ER) | payer MEDICAID, SELFPAY ==
[2022-01-12 16:47] VITALS: BP 157/90; PULSE 78; RESP 16; TEMP 36.4; O2SAT 98; BMI 25.6
[2022-01-12 20:04] LABS: MANUAL DIFF FLAG NO
[2022-01-12 20:07] LABS: Basophils Percent Auto 0.5 % (0-2); Eosinophils Absolute Auto 0.2 X10*3/uL (0.0-0.4); Eosinophils Percent Auto 2.8 % (0-4); Hematocrit 37.8 % (37.0-47.0); Hemoglobin 12.8 g/dl (12.0-16.0); Imm Gran Abs Auto 0.01 X10*3/uL (0.00-0.03); Imm Gran Pct Auto 0.1 % (0.0-0.4); Lymphocytes Absolute Auto 2.4 X10*3/uL (1.2-4.9); Lymphocytes Percent Auto 32.5 % (20-40); Mean Corpuscular HGB Conc 33.9 g/dl (31.0-35.0); Mean Corpuscular Hemoglobin 28.6 pg (27.0-33.0); Mean Corpuscular Volume 84.4 fL (80.0-98.0); Mean Platelet Volume 9.6 fL (9.4-12.3); Monocytes Absolute Auto 0.4 X10*3/uL (0.1-1.2); Monocytes Percent Auto 4.9 % (2-11); Neutrophils Absolute Auto 4.4 x10*3/uL (2.0-8.3); Neutrophils Percent Auto 59.2 % (45-73); Platelet Count 214 X10*3/uL (160-400); Red Blood Count 4.48 X10*6/uL (4.20-5.50); Red Cell Distribution Width 12.3 % (11.0-16.0); White Blood Count 7.5 X10*3/uL (4.8-10.8)
--- NOTE | 2022-01-12 20:11 | ED.GENADULT ---
HPI - General Adult General Chief complaint: Headache Stated complaint: migraine Time Seen by Provider: 01/12/22 19:39 Source: patient Mode of arrival: ambulatory Limitations: no limitations History of Present Illness HPI narrative: 56 yold female with pmh of migraines, HTN, anxiety preesnts to the ED for headache, bodaches, nasal congestion, and multiple episodes of diarrhea since last night. Patient denies any neck stiffness, chest pain, shortness of breath, abdominal pain, extremity tingling/numbness of extremities, neck pain, flank pain, dizziness, coughing, rectal bleeding, or coughing up blood. Related Data Home Medications Medication Instructions Recorded Confirmed amlodipine 2.5 mg tablet 2.5 mg PO DAILY 01/04/22 citalopram 10 mg tablet 10 mg PO QAM 01/04/22 cyclobenzaprine 5 mg tablet 5 mg PO BID 01/04/22 gabapentin 100 mg capsule 100 mg PO TID 01/04/22 glipizide 10 mg tablet 10 mg PO BID 01/04/22 hydrochlorothiazide 50 mg tablet 50 mg PO DAILY 01/04/22 lisinopril 40 mg tablet 40 mg PO DAILY 01/04/22 pravastatin 20 mg tablet 20 mg PO DAILY 01/04/22 quetiapine 100 mg tablet 100 mg PO BEDTIME 01/04/22 tiotropium bromide 18 mcg capsule 1 cap inhalation DAILY PRN 01/04/22 with inhalation device (Spiriva with HandiHaler) topiramate 50 mg tablet 50 mg PO BID 01/04/22 zolpidem 10 mg tablet 10 mg PO BEDTIME 01/04/22 Previous Rx's Medication Instructions Recorded fluticasone 500 mcg-salmeterol 50 1 inh inhalation Q12H #1 ea 05/25/ mcg/dose blistr powdr for inhalation potassium chloride 10 mEq 10 meq PO DAILY 30 days #30 caps 02/26/21 capsule,extended release potassium chloride 10 mEq 10 meq PO DAILY 30 days #30 caps 02/27/21 capsule,extended release Allergies Allergy/AdvReac Type Severity Reaction Status Date / Time apple [Apple] Allergy Severe ANAPHYLAXIS Unverified 01/12/22 16:47 avocado [Avocado] Allergy Severe ANAPHYLAXIS Unverified 01/04/22 14:54 fexofenadine [From RALPH] Allergy Severe ANAPHYLAXIS Unverified 01/04/22 14:54 peanut [Peanut] Allergy Severe ANAPHYLAXIS Unverified 01/04/22 14:54 acetaminophen [Percocet] Allergy Unknown nausea and Verified 01/04/22 14:54 vomiting Ralph Allergy Unknown rash, Unverified 01/04/22 14:54 swollen throat naproxen [From NAPROSYN] Allergy Unknown UNKNOWN Unverified 01/04/22 14:54 oxycodone [From PERCOCET] AdvReac Severe NAUSEA, Unverified 01/04/22 14:54 DIZZINESS, FALLS Review of Systems Review of Systems: headache, diarrhea, bodyaches, chills Yes all other systems are reviewed and are negative [facility] Past Medical History Medical History Anxiety Diabetes Hypertension Social History Social History Alcohol intake: current Alcohol intake frequency: holidays/special occasions only Patient Tobacco Use Status: Never used Tobacco Substance Use Type: Marijuana Advance Directives: No Advance Directives Information Provided: No Physical Exam ED Vital Signs: Vital Signs - 24 hr 01/12/22 16:47 01/12/22 20:46 Temperature 97.6 F 98.2 F Pulse Rate 78 Respiratory Rate 16 Blood Pressure 157/90 H Pulse Oximetry 98 98 Oxygen Delivery Method Room Air Room Air BMI result Body Mass Index 25.6 Const General: cooperative, healthy appearing, comfortable, no acute distress, well developed, alert, awake and Physically active Orientation/consciousness: patient oriented x3 HENMT Head: Yes normal to inspection, Yes No palpable skull fracture present, Yes normocephalic, Yes atraumatic and No abrasion Ears: hearing grossly normal bilaterally, external ears normal, TM's normal bilaterally, EAC's normal, mastoids normal and no periauricular adenopathy General nose exam: Normal external nose present and Normal nares present Eyes General: appearance normal, both eyes and all related structures Neck Neck: Yes normal visual inspection, Yes full ROM, Yes no lymphadenopathy, Yes no meningeal signs, Yes trachea midline, Yes supple, No anterior neck swelling and No tender Chest Chest palpation & inspection: normal inspection of the chest and normal palpation of entire chest wall Resp Effort & Inspection: normal respiratory effort and able to speak in complete sentences Auscultation: clear to auscultation bilaterally Cardio Jugular venous distension: no JVD Heart sounds: S1 normal heart sound present and S2 normal heart sound present GI Inspection: Yes normal to inspection and No abdominal wall ecchymosis Palpation (GI): Soft to palpation, not firm, nontender, no guarding and not rigid General: No CVA tenderness and Yes no CVA tenderness Back/Spine/Pelvis Back: no CVA tenderness, No CVA tenderness and No ecchymosis Skin General skin exam: no rashes or lesions noted and elasticity normal Neuro General: patient oriented x3, gait normal, no meningeal signs and CN's II-XI intact bilaterally Cranial nerves: Yes CN's II-XII intact bilaterally Extrem General: Yes normal to inspection and Yes full ROM Psych Appearance: grossly normal, well kempt and not disheveled Course Course Course Narrative: labs and covid swab ordered Reevaluation(s) Reevaluation #1: Labs and covid swab is normal. patient sleeping in comfortably in bed. Patient is safe for discharge. Time: 21:06 Medical Decision Making [facility] Narrative Medical decision making narrative: Viral Syndorme Lab Data Result diagrams: 01/12/22 19:52 01/12/22 19:52 Labs: Lab Results 01/12/22 01/12/22 01/12/22 Range/Units 19:52 19:52 19:52 WBC 7.5 (4.8-10.8) X10*3/uL RBC 4.48 (4.20-5.50) X10*6/uL Hgb 12.8 (12.0-16.0) g/dl Hct 37.8 (37.0-47.0) % MCV 84.4 (80.0-98.0) fL MCH 28.6 (27.0-33.0) pg MCHC 33.9 (31.0-35.0) g/dl RDW 12.3 (11.0-16.0) % Plt Count 214 (160-400) X10*3/uL MPV 9.6 (9.4-12.3) fL Immature Gran % (Auto) 0.1 (0.0-0.4) % Neut % (Auto) 59.2 (45-73) % Lymph % (Auto) 32.5 (20-40) % Briscoe % (Auto) 4.9 (2-11) % Eos % (Auto) 2.8 (0-4) % Baso % (Auto) 0.5 (0-2) % Lymph # (Auto) 2.4 (1.2-4.9) X10*3/uL Briscoe # (Auto) 0.4 (0.1-1.2) X10*3/uL Eos # (Auto) 0.2 (0.0-0.4) X10*3/uL Baso # (Auto) 0.0 (0.0-0.2) X10*3/uL Abs Immat Gran (auto) 0.01 (0.00-0.03) X10*3/uL Absolute Neuts (auto) 4.4 (2.0-8.3) x10*3/uL Absolute Nucleated RBC 0.000 (0.0-0.012) X10*3/uL Nucleated RBC % (auto) 0.0 (0.0-0.2) /100WBC Sodium 145 (135-145) mmol/L Potassium 3.6 (3.3-5.1) mmol/L Chloride 107 (96-108) mmol/L Carbon Dioxide 27 (22-29) mmol/L Anion Gap 15 (12-20) BUN 13 (9-16) mg/dL Creatinine 0.77 (0.5-1.4) mg/dL Estim Creat Clear Calc 69.7 Estimated GFR > 60 Random Glucose 72 (60-115) mg/dL Calcium 9.4 (8.4-10.2) mg/dL COVID-19 (NIGEL) Negative (Negative) COVID-19 Clin Com See Note Discharge Plan Discharge Clinical Impression: Migraine, Acute viral syndrome, Gastroenteritis Patient Disposition: Home, Self-Care Instructions: Migraine Headache (ED), Gastroenteritis (ED), Viral Syndrome (ED) Additional Instructions: Your labs and covid swab came back negative. Return to the ED for neck stiffness, worsening headache, chest pain, shortness of breath, coughing, fever, chills, abdominal pain, blood in stool, photophobia, weakness, rash, watery eyes, or any other concerning symptoms. Contineu taking fiorecet presribed by your PCP. Please follow up with PCP. Prescriptions: No Action fluticasone propion-salmeterol 500-50 mcg/dose blister with device 1 inh inhalation Q12H Qty: 1 8RF potassium chloride 10 mEq capsule, extended release 10 meq PO DAILY 30 Days Qty: 30 0RF potassium chloride 10 mEq capsule, extended release 10 meq PO DAILY 30 Days Qty: 30 0RF gabapentin 100 mg capsule 100 mg PO TID zolpidem 10 mg tablet 10 mg PO BEDTIME quetiapine 100 mg tablet 100 mg PO BEDTIME citalopram 10 mg tablet 10 mg PO QAM cyclobenzaprine 5 mg tablet 5 mg PO BID Spiriva with HandiHaler 18 mcg capsule, w/inhalation device 1 cap inhalation DAILY PRN topiramate 50 mg tablet 50 mg PO BID lisinopril 40 mg tablet 40 mg PO DAILY glipizide 10 mg tablet 10 mg PO BID pravastatin 20 mg tablet 20 mg PO DAILY hydrochlorothiazide 50 mg tablet 50 mg PO DAILY amlodipine 2.5 mg tablet 2.5 mg PO DAILY Stand Alone Forms: Work/School Release Interventions: ED Discharge Assessment Last Done: 01/12/22 21:22 Discharge Date/Time: 01/12/22 21:23 Print Language: Libyan
[2022-01-12 20:19] LABS: COVID-19 Test Negative (Negative)
[2022-01-12 20:25] LABS: Anion Gap 15 (12-20); Blood Urea Nitrogen 13 mg/dL (9-16); Calcium 9.4 mg/dL (8.4-10.2); Carbon Dioxide 27 mmol/L (22-29); Chloride 107 mmol/L (96-108); Creatinine Clr Calc Pharmacy 69.7; Estimated Glomerular Filt Rate > 60; Glucose Random 72 mg/dL (60-115); Potassium 3.6 mmol/L (3.3-5.1); Sodium 145 mmol/L (135-145)
[2022-01-12] MEDS: Butalb/Acetamin/Caff 50/325/40 TABLET 2 TAB PO (20:44)
[2022-01-12 20:46] VITALS: TEMP 36.8; O2SAT 98
== END 2022-01-12 21:23 | disposition home or self-care (01) ==
PROVIDERS: Emergency Provider Internal Medicine; PCP Internal Medicine
DX: G43.909 Migraine, unspecified, not intractable, without status migrainosus (principal); B34.9 Viral infection, unspecified; K52.9 Noninfective gastroenteritis and colitis, unspecified; Z20.822 Contact with and (suspected) exposure to COVID-19; Z79.899 Other long term (current) drug therapy
CPT/HCPCS: 80048; 85025; 87635; 99283; 99284

== ENCOUNTER 2022-05-10 13:57 | Outpatient (REF) | payer MEDICAID, SELFPAY ==
--- NOTE | ~2022-05-10 | US_ITS ---
EXAMINATION: US PELVIS CLINICAL INFORMATION: Pelvic and perineal pain, last menstrual period 3 years ago, postmenopausal. COMPARISON: Ultrasound pelvis 08/31/2020. CT abdomen and pelvis 02/26/2021. TECHNIQUE: Ultrasound of the pelvis is performed using both transabdominal and transvaginal transducers along with Doppler. Transvaginal imaging is performed due to inadequate visualization transabdominally. FINDINGS: The uterus is heterogeneous and measures 7.2 x 3.5 x 3.6 cm, volume 48 mL. A 0.3 x 1.9 x 1.9 cm complex cystic lesion in the right fundus of the uterus measures 3 x 1.9 x 1.9 cm, previously 2.5 x 2.4 x 3.4 cm. Previously seen 1.7 cm lower uterine segment lesion not visualized today. The endometrial thickness is 0.2 cm visualization of endometrium limited due to uterine heterogeneity and fibroids.. No significant free fluid. Left ovary not visualized. Right ovary measures 2.2 x 1.1 x 1.0 cm, volume 1.3 mL. There are 2 anechoic lesions in the right paraovarian region, measuring 0.9 x 0.8 x 0.8 cm and a septated anechoic lesion measures 1.1 x 0.9 x 1.0 cm. Previous exam demonstrated 2 anechoic right paraovarian lesions measuring 1.7 x 1.2 x 1.2 cm and 1.4 x 1.1 x 1.0 cm. Previously identified tubular anechoic area in the right apex and felt to possibly represent a hydrosalpinx is not clearly visualized today. US/US pelvic and transvaginal IMPRESSION: 1. Two (2) right adnexal paraovarian cystic lesions, one of which has septations. Previous exam demonstrated 2 paraovarian likely cysts. 2. Single complex cystic uterine fibroid. Previously identified additional fibroid not visualized today. 3. Left ovary not visualized. 4. Right ovary unremarkable. 5. Endometrial thickness is 0.2 cm, however, visualization of endometrium limited.
== END 2022-05-10 13:58 | disposition home or self-care (01) ==
LOC: HO.US 13:57
PROVIDERS: Visit Provider Obstetrics & Gynecology
DX: R10.2 Pelvic and perineal pain (principal)
CPT/HCPCS: 76830; 76856

== ENCOUNTER 2022-05-11 15:00 | Outpatient (RCR) | payer MEDICAID, SELFPAY | END 2022-05-19 11:43 | disposition home or self-care (01) | LOC: HO.PT 15:00 | PROVIDERS: PCP Internal Medicine; Visit Provider Internal Medicine | DX: M54.41 Lumbago with sciatica, right side (principal) | CPT/HCPCS: 97110; 97162 ==

== ENCOUNTER → 2022-06-29 13:44 | Outpatient (BNVA) | payer MEDICAID, SELFPAY | PROVIDERS: PCP Internal Medicine; Visit Provider Internal Medicine | DX: J44.9 Chronic obstructive pulmonary disease, unspecified (principal); K21.9 Gastro-esophageal reflux disease without esophagitis | CPT/HCPCS: 99202 ==

== ENCOUNTER 2022-08-11 12:43 | Outpatient (REF) | payer MEDICAID, SELFPAY ==
--- NOTE | 2022-08-11 15:27 | PFT_ITS ---
Forced vital capacity 70%, FEV1 62%, FEV1/FVC ratio is 70, QXM20-45 is 41%, and MVV 57%. Post bronchodilator therapy, there was a significant improvement in all flow volumes to almost normal levels. Total lung capacity 84% and residual volume 103%. Diffusion capacity 98%. Compared to the results of 12/20/2013, there was no significant change. CONCLUSION: The patient has moderately severe obstructive airway disorder with excellent response to bronchodilator therapy. 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 MD INDERJIT Mahoney/MODL / [id number]
== END 2022-08-11 12:44 | disposition home or self-care (01) ==
LOC: HO.RESP 12:43
PROVIDERS: PCP Internal Medicine; Visit Provider Internal Medicine
DX: J44.9 Chronic obstructive pulmonary disease, unspecified (principal); Z79.899 Other long term (current) drug therapy
CPT/HCPCS: 94060; 94727; 94729; 99212

== ENCOUNTER 2022-08-24 13:45 | Outpatient (REF) | payer MEDICAID, SELFPAY ==
[2022-08-25 11:54] LABS: CA-125 6 U/mL (<35)
== END 2022-08-24 13:46 | disposition home or self-care (01) ==
LOC: HO.LAB 13:45
PROVIDERS: PCP Internal Medicine; Visit Provider Obstetrics & Gynecology
DX: R10.2 Pelvic and perineal pain (principal); D25.9 Leiomyoma of uterus, unspecified; N83.299 Other ovarian cyst, unspecified side
CPT/HCPCS: 36415; 86304; 99212

== ENCOUNTER 2023-01-10 14:36 | Outpatient (AMB) | payer MEDICAID, SELFPAY ==
--- NOTE | 2023-01-10 14:40 | MHC.OFFVIS ---
Intake Vital Signs 01/10/23 14:44 Height 5 ft 2 in Weight 135 lb BMI 24.7 BP 144/80 H Intake Visit Reasons: Annual Intake Note: no concerns Echo Tech Required: Yes Echo Tech Language: Orchard Manager Name: Bri URIBE Information Interpreted: non-clinical & clinical Biofuels Operations Manager: Biofuels Operations Manager Present (Bri URIBE) Accompanied by: Self / Same As Patient Allergies apple [Apple] Allergy (Severe, Verified 01/10/23 14:46) ANAPHYLAXIS avocado [Avocado] Allergy (Severe, Verified 01/10/23 14:46) ANAPHYLAXIS fexofenadine [From RALPH] Allergy (Severe, Verified 01/10/23 14:46) ANAPHYLAXIS peanut [Peanut] Allergy (Severe, Verified 01/10/23 14:46) ANAPHYLAXIS acetaminophen [Percocet] Allergy (Unknown, Verified 01/10/23 14:46) nausea and vomiting naproxen [From NAPROSYN] Allergy (Unknown, Verified 01/10/23 14:46) UNKNOWN oxycodone [From PERCOCET] Adverse Reaction (Severe, Verified 01/10/23 14:46) NAUSEA, DIZZINESS, FALLS Post menopausal: Yes HPI HPI Comments History of Present Illness Details Presenting for annual exam. No complaints. Last Pap/HPV was negative in 12/29 Last Mammogram was BI-RADS 1 and 12/01 Last Colonoscopy was done in 06/30, the recommendation was to repeat in 7 years [facility] Medical History Anxiety Asthma-COPD overlap syndrome COPD (chronic obstructive pulmonary disease) Diabetes GERD (gastroesophageal reflux disease) Hypertension Surgical History Hx of section Hx of tonsillectomy Hx of tubal ligation Family History Mother Diabetes HTN (hypertension) Social History Household Members: None Housing: Apartment Alcohol intake: current Alcohol intake frequency: holidays/special occasions only Patient Tobacco Use Status: Never used Tobacco Use of substances other than those prescribed or required for medical reasons: Yes Substance Use Type: Marijuana Current occupational status: disabled Sexually active: No Sexual orientation: Straight/Heterosexual Gender identity: Female Female Reproductive History Menstrual Menopause type: natural Total pregnancies: 4 Full term: 4 Number of Living Children: 4 Date of last pap smear: 01/06/22 Date of Mammogram: 11/30/21 Review of Systems Const All systems reviewed & are unremarkable except as noted in HPI and below Card Reports as per HPI Resp Reports as per HPI GI Reports as per HPI and Reports no additional complaints Reports as per HPI Physical Exam Vital Signs: Last Vital Signs BP 144/80 H 01/10/23 14:44 BMI result Body Mass Index 24.7 Const General: cooperative, healthy appearing and comfortable Chest Chest palpation & inspection: normal inspection of the chest and normal palpation of entire chest wall Breast/axilla inspection: normal inspection of the breasts and normal inspection of the axillae Breast/axilla palpation: normal palpation of the breasts, normal palpation of the axillae and no axillary lymphadenopathy Resp Effort & Inspection: normal respiratory effort Auscultation: clear to auscultation bilaterally Percussion: percussion normal Cardio Palpation: normal PMI Rate: regular rate Rhythm: regular rhythm Heart sounds: no murmurs and no rubs Peripheral pulses: Peripheral pulses 2+ throughout GI Inspection: Yes normal to inspection Palpation (GI): Soft to palpation, nontender, no guarding, not rigid and No hepatosplenomegaly present Percussion: Yes normal to percussion Auscultation: normal bowel sounds Rectal Exam - Female: deferred General: Yes bladder normal to palpation External Female Exam: No lesion Speculum Exam - Vagina: normal appearance of the vagina, normal palpation, normal vaginal discharge and not erythematous Speculum Exam - Cervix: normal appearance of the cervix and normal palpation Bimanual exam- vagina & uterus: normal bimanual exam, normal palpation, uterine size normal, bladder normal to palpation, consistency normal and normal palpation Bimanual Exam- Adnexa, other: normal adnexae, no masses and no tenderness Assessment & Plan Assessment & Plan (1) Well woman exam: Code(s): Z01.419 - Encounter for gynecological examination (general) (routine) without abnormal findings Plan: Co testing not indicated this year. Counseled the patient about the recommended dietary allowance of 1200 mg of Calcium & 600 IU of vitamin D. Mammogram ordered , the patient is up-to-date with her screening colonoscopy . The patient was instructed to perform monthly self-breast exams and schedule annual exam in a year; all questions answered and the patient verbalized understanding. Orders: Orders MM screening mammo BI Today Z12.31 - Encounter for screening mammogram for malignant neoplasm of breast Coding Level of Care Code Est Pt Prev Care 40-64y(17600) Diagnoses Well woman exam Z01.419
[2023-01-10 14:44] VITALS: BP 144/80; BMI 24.7
== END 2023-01-10 15:10 | disposition home or self-care (01) ==
LOC: HO.HWS 14:36
PROVIDERS: PCP Internal Medicine; Visit Provider Obstetrics & Gynecology
DX: Z01.419 Encounter for gynecological examination (general) (routine) without abnormal findings (principal)
CPT/HCPCS: 99396

== ENCOUNTER → 2023-01-10 14:36 | Outpatient (BNVA) | payer MEDICAID, SELFPAY | PROVIDERS: PCP Internal Medicine; Visit Provider Obstetrics & Gynecology ==

== ENCOUNTER 2023-01-25 12:26 | Emergency (ER) | payer MEDICAID, SELFPAY ==
--- NOTE | ~2023-01-25 | XR_ITS ---
EXAMINATION: XR CHEST CLINICAL INFORMATION: Shortness of breath, cough. COMPARISON: 02/26/2021 chest radiographs. TECHNIQUE: Frontal view of the chest was obtained. FINDINGS: No significant abnormality is noted involving the heart, lungs, mediastinum, bony thorax or soft tissues. XR/XR chest 1V IMPRESSION: No acute cardiopulmonary process.
[2023-01-25 12:33] VITALS: BP 175/93; PULSE 99; RESP 20; TEMP 36.9; O2SAT 94; BMI 25.6
--- NOTE | 2023-01-25 12:33 | ED_ITS ---
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 Patient states that over the last 3 days she has had increased wheezing and sinus congestion. Patient denies any dizziness, lightheadedness, abdominal pain, nausea, vomiting, fever, chills, blurry vision, double vision, loss of vision, chest pain, back pain, night sweats, pain with urination, increased urinary frequency, increased urinary urgency, blood in her urine or stool, syncope or a near syncopal episode, recent trauma or falls, bowel incontinence, bladder incontinence, bowel retention, bladder retention, or any other complaints at this time. MD complaint: wheezing Onset (ago): day(s) (3) Severity: mild Associated symptoms: dry cough Related Data Current Asthma Therapy: inhaled bronchodilator Home Medications Medication Instructions Recorded Confirmed amlodipine 2.5 mg tablet 2.5 mg PO DAILY 01/04/22 08/11/22 citalopram 10 mg tablet 10 mg PO QAM 01/04/22 08/11/22 cyclobenzaprine 5 mg tablet 5 mg PO BID 01/04/22 08/11/22 glipizide 10 mg tablet 10 mg PO BID 01/04/22 08/11/22 hydrochlorothiazide 50 mg tablet 50 mg PO DAILY 01/04/22 08/11/22 lisinopril 40 mg tablet 40 mg PO DAILY 01/04/22 08/11/22 pravastatin 20 mg tablet 20 mg PO DAILY 01/04/22 08/11/22 quetiapine 100 mg tablet 100 mg PO BEDTIME 01/04/22 08/11/22 topiramate 50 mg tablet 50 mg PO BID 01/04/22 08/11/22 loperamide 2 mg capsule 0 mg PO 06/29/22 08/11/22 Previous Rx's Medication Instructions Recorded fluticasone 500 mcg-salmeterol 50 1 inh inhalation Q12H #1 ea 05/25/ mcg/dose blistr powdr for inhalation famotidine 40 mg tablet 40 mg PO DAILY GERD 30 days #30 01/18/23 tabs doxycycline hyclate 100 mg tablet 100 mg PO BID 7 days #14 tabs 01/25/23 prednisone 20 mg tablet 20 mg PO DAILY 7 days #7 tabs 01/25/23 Allergies Allergy/AdvReac Type Severity Reaction Status Date / Time apple [Apple] Allergy Severe ANAPHYLAXIS Verified 01/10/23 14:46 avocado [Avocado] Allergy Severe ANAPHYLAXIS Verified 01/10/23 14:46 fexofenadine [From RALPH] Allergy Severe ANAPHYLAXIS Verified 01/10/23 14:46 peanut [Peanut] Allergy Severe ANAPHYLAXIS Verified 01/10/23 14:46 acetaminophen [Percocet] Allergy Unknown nausea and Verified 01/10/23 14:46 vomiting naproxen [From NAPROSYN] Allergy Unknown UNKNOWN Verified 01/10/23 14:46 oxycodone [From PERCOCET] AdvReac Severe NAUSEA, Verified 01/10/23 14:46 DIZZINESS, FALLS Review of Systems Constitutional: Constitutional: Reports no additional constitutional complai nts, Denies chills, Denies fever(s) and Denies night sweats Eyes: Eyes: Reports no additional eye complaints, Denies blurry vision, Denies change in vision, Denies diplopia, Denies eye discharge, Denies loss of vision and Denies eye pain ENT: Denies dizziness and Reports nasal congestion Cardiovascular: Cardiovascular: Reports no additional cardiovascular comp laints, Denies chest pain, Denies lightheadedness, Denies Loss of Consciousness and Denies dyspnea Respiratory: Respiratory: Reports no additional respiratory complaints, Reports cough, Denies dyspnea and Reports wheezing Gastrointestinal: Gastrointestinal: Reports no additional gastrointestinal complaints, Denies abdominal pain, Denies melena, Denies hematochezia, Denies change in bowel habits and Denies change in stool character Genitourinary: Genitourinary: Denies hematuria, Denies urinary frequency, Denies dysuria, Denies urinary incontinence, Denies urinary hesitancy and Denies urinary urgency Musculoskeletal: Musculoskeletal: Reports no additional musculoskeletal compla ints, Denies numbness and Denies tingling Neurologic: Denies dizziness, Denies loss of vision, Denies numbness and Denies tingling Psychiatric: Psychiatric: Reports no additional psychiatric complaints Endocrine: Endocrine: Reports no additional endocrine complaints Hematologic/Lymphatic: Hematologic/Lymphatic: Reports no additional hematologic/lymphatic complaints Allergic/Immunologic: Allergic/Immunologic: Reports no additional allergic/immunologic complaints and Reports wheezing PMFSH Past Medical History Attestation statement: The following information was validated with the patient. Source: old records reviewed and nursing notes reviewed Medical History (Updated 01/25/23 @ 17:40 by JOSE Mejia) Anxiety Asthma-COPD overlap syndrome COPD (chronic obstructive pulmonary disease) Diabetes Female pelvic pain GERD (gastroesophageal reflux disease) Hypertension Well woman exam Surgical History Hx of section Hx of tonsillectomy Hx of tubal ligation Family History Family History Mother Diabetes HTN (hypertension) Social History Social History Household Members: None Housing: Apartment Alcohol intake: current Alcohol intake frequency: holidays/special occasions only Patient Tobacco Use Status: Never used Tobacco Substance Use Type: Marijuana Advance Directives: No Advance Directives Information Provided: No Current occupational status: disabled Sexual orientation: Straight/Heterosexual Gender identity: Female Physical Exam Vital Signs: Vital Signs: Last Vital Signs Temp 98.4 F 01/25/23 12:33 Pulse 107 H 01/25/23 16:15 Resp 15 01/25/23 16:15 BP 139/82 01/25/23 16:15 Pulse Ox 97 01/25/23 16:15 O2 Del Method Room Air 01/25/23 16:15 BMI result Body Mass Index 25.6 Const: General: cooperative, no acute distress, alert and awake Nutritional Appearance: well nourished Orientation/consciousness: patient oriented x3 Limitations: no limitations HEENT: Head: Yes normal to inspection and Yes atraumatic Ears: hearing grossly normal bilaterally and external ears normal General nose exam: Normal external nose present, no nasal discharge noted and no epistaxis Face and sinus: Yes normal facial exam, No abrasion and No laceration Mouth: Normal oral and palatal mucosa present, no drooling and no muffled voice Eyes: General: appearance normal, both eyes and all related structures Periorbital: periorbital findings normal Eyelids: Yes eyelids normal Conjunctivae: conjunctivae normal Pupils: Equal, round and reactive pupils present EOM: EOMs intact bilaterally Neck: Neck: Yes normal visual inspection, Yes full ROM and Yes no lymphadenopathy Chest: Chest palpation & inspection: normal inspection of the chest Resp: Effort & Inspection: normal respiratory effort and able to speak in complete sentences Auscultation: wheezes scattered wheezes and throughout Cardio: Rate: regular rate Rhythm: regular rhythm GI: Inspection: Yes normal to inspection Neuro: General: patient oriented x3 and moves all extremities Cranial nerves: Yes Equal, round and reactive pupils present Cognition (Neuro): normal cognition Motor exam (neuro): 5/5 motor strength present throughout Sensory Exam: Normal double simultaneous stimulation for sensation Coordination: [id number] test normal Extrem: General: Yes normal to inspection, Yes full ROM and Yes capillary refill normal Psych: Appearance: grossly normal Mental Status: mental status grossly normal Affect: normal affect Attitude: cooperative Thought process: Normal thought process present Thought content: Normal thought content present Insight: Good insight present (Psych) Course Course Course Narrative: RME: 57yo F w/PMHx asthma-COPD, DM, GERD c/o asthma exacerbation x3 days w/prod cough, wheezing & CP. denies fever, travel Satting 98% on RA, talking in complete, end-expiratory wheeze noted EKG, Labs, CXR, viral testing, DuoNeb ordered Full HPI, ROS and PE to be performed by primary ED provider. Medications Administered Discontinued Medications Generic Name Dose Route Start Last Admin Trade Name Narinderq PRN Reason Stop Dose Admin Albuterol Sulfate 4 puff 01/25/23 12:46 01/25/23 13:01 Albuterol Sulfate 90 Mcg 8 Gm Inhaler INHALE 01/25/23 12:47 4 puff ONCE ONE Administration Albuterol Sulfate 7.5 mg/ 0 mg 01/25/23 12:35 01/25/23 15:10 Albuterol/Ipratropium 3 ml INHALE 01/25/23 12:36 5 each ONCE ONE Administration Methylprednisolone Sodium Succinate 60 mg 01/25/23 15:07 01/25/23 15:21 Methylprednisolone Sod Succ 125 Mg/2 Ml Vial IM 01/25/23 15:08 60 mg ONCE ONE Administration Medical Decision Making Medical Decision Making [facility] Narrative: Patient is a 57 year old assigned female at with a history of asthma and HTN presenting to the emergency department today with wheezing and sinus congestion. Patient's physical exam was as noted in the physical exam portion of this note. Patient's blood work was unremarkable. Patient's chest x-ray showed no acute process. I explained my physical exam findings as well as all test results to the patient. I answered all questions asked by the patient. Patient received steroids and a breathing treatment which she stated helped her symptoms significantly. I stressed the importance of the patient taking her medication as prescribed. I stressed the importance of the patient following up with her primary care provider. I stressed the importance of the patient returning to the emergency department immediately if her symptoms were to worsen or if she were to develop any dizziness, shortness of breath, difficulty breathing, chest pain, blurry vision, loss of vision, nausea, vomiting, abdominal pain, fever, chills, back pain, or any other complaints. Patient verbalized agreement and understanding with this treatment plan and discharge. Differential Diagnosis Differential Diagnoses: The differential diagnosis associated with the present ation includes Asthma exacerbation Asthma attack Sinusitis Admission/Observation Consideration of admission/observation: Escalation of care including admission/observation considered Patient would have been admitted to the hospital had her work up had any findings where hospital admission was appropriate and her clinical presentation warranted hospital admission. Lab Data MDM Lab Attestation statement: I reviewed the patient's lab results. Follow up with your primary care provider. Return to the emergency department immediately if your symptoms worsen or if you develop any dizziness, shortness of breath, difficulty breathing, chest pain, blurry vision, loss of vision, nausea, vomiting, abdominal pain, fever, chills, back pain, or any other complaints. 01/25/23 13:10 01/25/23 13:10 Labs: Lab Results 01/25/23 01/25/23 01/25/23 Range/Units 13:07 13:07 13:10 WBC 7.1 (4.8-10.8) X10*3/uL RBC 4.48 (4.20-5.50) X10*6/uL Hgb 12.9 (12.0-16.0) g/dl Hct 38.9 (37.0-47.0) % MCV 86.8 (80.0-98.0) fL MCH 28.8 (27.0-33.0) pg MCHC 33.2 (31.0-35.0) g/dl RDW 12.2 (11.0-16.0) % Plt Count 194 (160-400) X10*3/uL MPV 10.2 (9.4-12.3) fL Immature Gran % (Auto) 0.3 (0.0-0.4) % Neut % (Auto) 76.4 H (45-73) % Lymph % (Auto) 15.6 L (20-40) % [place] % (Auto) 5.1 (2-11) % Eos % (Auto) 2.2 (0-4) % Baso % (Auto) 0.4 (0-2) % Lymph # (Auto) 1.1 L (1.2-4.9) X10*3/uL [place] # (Auto) 0.4 (0.1-1.2) X10*3/uL Eos # (Auto) 0.2 (0.0-0.4) X10*3/uL Baso # (Auto) 0.0 (0.0-0.2) X10*3/uL Abs Immat Gran (auto) 0.02 (0.00-0.03) X10*3/uL Absolute Neuts (auto) 5.4 (2.0-8.3) x10*3/uL Absolute Nucleated RBC 0.000 (0.0-0.012) X10*3/uL Nucleated RBC % (auto) 0.0 (0.0-0.2) /100WBC Sodium (135-145) mmol/L Potassium (3.3-5.1) mmol/L Chloride (96-108) mmol/L Carbon Dioxide (22-29) mmol/L Anion Gap (12-20) BUN (9-16) mg/dL Creatinine (0.5-1.4) mg/dL Estim Creat Clear Calc Estimated GFR Random Glucose (60-115) mg/dL Calcium (8.4-10.2) mg/dL Total Bilirubin (0.0-1.0) mg/dL Direct Bilirubin (0.0-0.5) mg/dL AST (5-31) U/L ALT (0-31) U/L Alkaline Phosphatase (39-117) U/L Troponin I High Sens (<3.5-17.0) ng/L Total Protein (6.5-8.0) g/dL Albumin (3.5-5.0) g/dL COVID-19 (NIGEL) Negative (Negative) COVID-19 Clin Com See Note Influenza Type A (IDALIA) Negative (Negative) Influenza Type B (IDALIA) Negative (Negative) Influenza A & B Note See Note 01/25/23 01/25/23 Range/Units 13:10 13:10 WBC (4.8-10.8) X10*3/uL RBC (4.20-5.50) X10*6/uL Hgb (12.0-16.0) g/dl Hct (37.0-47.0) % MCV (80.0-98.0) fL MCH (27.0-33.0) pg MCHC (31.0-35.0) g/dl RDW (11.0-16.0) % Plt Count (160-400) X10*3/uL MPV (9.4-12.3) fL Immature Gran % (Auto) (0.0-0.4) % Neut % (Auto) (45-73) % Lymph % (Auto) (20-40) % [place] % (Auto) (2-11) % Eos % (Auto) (0-4) % Baso % (Auto) (0-2) % Lymph # (Auto) (1.2-4.9) X10*3/uL [place] # (Auto) (0.1-1.2) X10*3/uL Eos # (Auto) (0.0-0.4) X10*3/uL Baso # (Auto) (0.0-0.2) X10*3/uL Abs Immat Gran (auto) (0.00-0.03) X10*3/uL Absolute Neuts (auto) (2.0-8.3) x10*3/uL Absolute Nucleated RBC (0.0-0.012) X10*3/uL Nucleated RBC % (auto) (0.0-0.2) /100WBC Sodium 143 (135-145) mmol/L Potassium 4.1 (3.3-5.1) mmol/L Chloride 101 (96-108) mmol/L Carbon Dioxide 30 H (22-29) mmol/L Anion Gap 16 (12-20) BUN 10 (9-16) mg/dL Creatinine 0.82 (0.5-1.4) mg/dL Estim Creat Clear Calc 64.6 Estimated GFR > 60 Random Glucose 165 H (60-115) mg/dL Calcium 10.4 H D (8.4-10.2) mg/dL Total Bilirubin 0.5 (0.0-1.0) mg/dL Direct Bilirubin 0.1 (0.0-0.5) mg/dL AST 14 (5-31) U/L ALT 14 (0-31) U/L Alkaline Phosphatase 86 (39-117) U/L Troponin I High Sens < 2.7 (<3.5-17.0) ng/L Total Protein 7.8 (6.5-8.0) g/dL Albumin 4.7 (3.5-5.0) g/dL COVID-19 (NIGEL) (Negative) COVID-19 Clin Com Influenza Type A (IDALIA) (Negative) Influenza Type B (IDALIA) (Negative) Influenza A & B Note Independent Interpretation I performed an independent interpretation of an: EKG and Plain X-Ray Interpretation: My interpretation is in agreement with the radiologist's impression of this imaging study. ---- EXAMINATION: XR CHEST CLINICAL INFORMATION: Shortness of breath, cough. COMPARISON: 02/26/2021 chest radiographs. TECHNIQUE: Frontal view of the chest was obtained. FINDINGS: No significant abnormality is noted involving the heart, lungs, mediastinum, bony thorax or soft tissues. XR/XR chest 1V IMPRESSION: No acute cardiopulmonary process. Dictated By: Darin Lin MD Signed By: Electronically signed by Darin Lin MD 01/25/23 1256 ---- Vent. Rate: 091 BPM ? ? Atrial Rate: 091 BPM P-R Int: 126 ms? QRS Dur: 090 ms QT Int: 378 ms ? ? ? P-R-T Axes: 057 -24 -14 degrees QTc Int: 464 ms ? Normal sinus rhythm Nonspecific ST and T wave abnormality Abnormal ECG When compared with ECG of 26-FEB-2021 12:22, Nonspecific T wave abnormality now evident in Lateral leads DD/ 1304 Radiology Impression Discussion of test interpretation with radiology: I have reviewed the radiologist's reading. Prescription Management I considered prescription management with: Antibiotic (patient prescribed an antibiotic for her possible sinusitis) and Other (patient prescribed an oral steroid.) Chronic Conditions Patient?s care impacted by: Other (asthma) Discharge Plan Discharge Clinical Impression: Asthma exacerbation, Sinusitis Patient Disposition: Home, Self-Care Instructions: Asthma (DC), Sinusitis (ED) Additional Instructions: Follow up with your primary care provider. Return to the emergency department immediately if your symptoms worsen or if you develop any dizziness, shortness of breath, difficulty breathing, chest pain, blurry vision, loss of vision, nausea, vomiting, abdominal pain, fever, chills, back pain, or any other complaints. Ricardo un seguimiento con ghotra proveedor de atenci?n primaria. Regrese al dep artamento de emergencias de inmediato si bryant s?ntomas empeoran o si presenta mareos, falta de aire, dificultad para respirar, dolor de pecho, visi?n borrosa, p?rdida de la visi?n, n?useas, v?mitos, dolor abdominal, fiebre, escalofr?os, dolor de espalda o cualquier otras quejas. Prescriptions: New prednisone 20 mg tablet 20 mg PO DAILY 7 Days Qty: 7 0RF doxycycline hyclate 100 mg tablet 100 mg PO BID 7 Days Qty: 14 0RF No Action fluticasone propion-salmeterol 500-50 mcg/dose blister with device 1 inh inhalation Q12H Qty: 1 8RF quetiapine 100 mg tablet 100 mg PO BEDTIME citalopram 10 mg tablet 10 mg PO QAM cyclobenzaprine 5 mg tablet 5 mg PO BID topiramate 50 mg tablet 50 mg PO BID lisinopril 40 mg tablet 40 mg PO DAILY glipizide 10 mg tablet 10 mg PO BID pravastatin 20 mg tablet 20 mg PO DAILY hydrochlorothiazide 50 mg tablet 50 mg PO DAILY amlodipine 2.5 mg tablet 2.5 mg PO DAILY loperamide 2 mg capsule 0 mg PO famotidine 40 mg tablet 40 mg PO DAILY 30 Days Qty: 30 2RF Referrals: [place], [facility] [Primary Care Provider] - Interventions: ED Discharge Assessment Last Done: 01/25/23 16:17 Discharge Date/Time: 01/25/23 16:19 Print Language: Irish
--- NOTE | 2023-01-25 12:35 | ECG_ITS ---
Test Reason : sob/cp Blood Pressure : / mmHG Vent. Rate : 091 BPM Atrial Rate : 091 BPM P-R Int : 126 ms QRS Dur : 090 ms QT Int : 378 ms P-R-T Axes : 057 -24 -14 degrees QTc Int : 464 ms Normal sinus rhythm Nonspecific ST and T wave abnormality Abnormal ECG When compared with ECG of 26-FEB-2021 12:22, Nonspecific T wave abnormality now evident in Lateral leads Referred By: Nola Scott Electronically Signed By:JAZMYNE NETTLES
[2023-01-25 13:01] VITALS: PULSE 77; RESP 22; O2SAT 93
[2023-01-25] MEDS: Albuterol Sulfate 90 MCG 8 GM INHALER 4 PUFF INHALE (13:01)
[2023-01-25 13:14] LABS: MANUAL DIFF FLAG NO
[2023-01-25 13:23] LABS: Basophils Percent Auto 0.4 % (0-2); Eosinophils Absolute Auto 0.2 X10*3/uL (0.0-0.4); Eosinophils Percent Auto 2.2 % (0-4); Hematocrit 38.9 % (37.0-47.0); Hemoglobin 12.9 g/dl (12.0-16.0); Imm Gran Abs Auto 0.02 X10*3/uL (0.00-0.03); Imm Gran Pct Auto 0.3 % (0.0-0.4); Lymphocytes Absolute Auto 1.1 X10*3/uL (1.2-4.9); Lymphocytes Percent Auto 15.6 % (20-40); Mean Corpuscular HGB Conc 33.2 g/dl (31.0-35.0); Mean Corpuscular Hemoglobin 28.8 pg (27.0-33.0); Mean Corpuscular Volume 86.8 fL (80.0-98.0); Mean Platelet Volume 10.2 fL (9.4-12.3); Monocytes Absolute Auto 0.4 X10*3/uL (0.1-1.2); Monocytes Percent Auto 5.1 % (2-11); Neutrophils Absolute Auto 5.4 x10*3/uL (2.0-8.3); Neutrophils Percent Auto 76.4 % (45-73); Platelet Count 194 X10*3/uL (160-400); Red Blood Count 4.48 X10*6/uL (4.20-5.50); Red Cell Distribution Width 12.2 % (11.0-16.0); White Blood Count 7.1 X10*3/uL (4.8-10.8)
[2023-01-25 13:32] LABS: Alanine Aminotransferase 14 U/L (0-31); Albumin Level 4.7 g/dL (3.5-5.0); Alkaline Phosphatase 86 U/L (39-117); Anion Gap 16 (12-20); Aspartate Amino Transferase 14 U/L (5-31); Bilirubin Direct 0.1 mg/dL (0.0-0.5); Bilirubin Total 0.5 mg/dL (0.0-1.0); Blood Urea Nitrogen 10 mg/dL (9-16); Calcium 10.4 mg/dL (8.4-10.2); Carbon Dioxide 30 mmol/L (22-29); Chloride 101 mmol/L (96-108); Creatinine Clr Calc Pharmacy 64.6; Estimated Glomerular Filt Rate > 60; Glucose Random 165 mg/dL (60-115); Potassium 4.1 mmol/L (3.3-5.1); Sodium 143 mmol/L (135-145); Total Protein 7.8 g/dL (6.5-8.0)
[2023-01-25 13:38] LABS: COVID-19 Test Negative (Negative); IDNOW Serial# BCCEAD1C
[2023-01-25 13:39] LABS: IDNOW Serial# 08D9AD1C; Influenza A Negative (Negative); Influenza B2 Negative (Negative)
[2023-01-25 13:49] LABS: Troponin-I High Sensitivity < 2.7 ng/L (<3.5-17.0)
[2023-01-25] MEDS: Albuterol Sulfate 7.5 MG, Albuterol/Iprat 2.5/0.5MG 3 ML 3 ML INHALE (15:10)
[2023-01-25 15:11] VITALS: PULSE 94; RESP 20; O2SAT 96
[2023-01-25] MEDS: methylPREDNISolone Sod Succ 125 MG/2 ML VIAL 60 MG IM (15:21)
[2023-01-25 16:15] VITALS: BP 139/82; PULSE 107; RESP 15; O2SAT 97
== END 2023-01-25 16:19 | disposition home or self-care (01) ==
PROVIDERS: Physician Assistant; Emergency Provider Emergency Medicine
DX: J45.901 Unspecified asthma with (acute) exacerbation (principal); J32.9 Chronic sinusitis, unspecified; Z20.822 Contact with and (suspected) exposure to COVID-19; Z20.828 Contact with and (suspected) exposure to other viral communicable diseases; Z79.899 Other long term (current) drug therapy
CPT/HCPCS: 71045; 80048; 80076; 84484; 85025; 87502; 87635; 93005; 94640; 99284; J2930

== ENCOUNTER 2023-02-07 13:41 | Outpatient (REF) | payer MEDICAID, SELFPAY | END 2023-02-07 13:42 | disposition home or self-care (01) | LOC: HO.MAMMO 13:41 | PROVIDERS: PCP Internal Medicine; Visit Provider Obstetrics & Gynecology | DX: Z12.31 Encounter for screening mammogram for malignant neoplasm of breast (principal) | CPT/HCPCS: 77063; 77067 ==

== ENCOUNTER → 2023-02-07 13:45 | Outpatient (BNV) | payer MEDICAID, SELFPAY | PROVIDERS: PCP Internal Medicine; Visit Provider Radiology Diagnostic Radiology | DX: Z12.31 Encounter for screening mammogram for malignant neoplasm of breast (principal) | CPT/HCPCS: 77063; 77067 ==

== ENCOUNTER 2023-02-15 15:08 | Outpatient (AMB) | payer MEDICAID, SELFPAY ==
--- NOTE | 2023-02-15 15:13 | A.OFFVIS_ITS ---
Intake Vital Signs 02/15/23 15:15 Height 5 ft 2 in Weight 135 lb BMI 24.7 BP 140/82 H Blood Pressure Location Lt brachial Position Sitting Pulse 86 Pulse Source Pulse Oximeter Pulse Oximetry (%) 96 Oxygen Delivery Method Room Air Intake Visit Reasons: Asthma Intake Note: pt is here for follow up and states she is coughing, runny nose, she feels it is stuck in chest right in center Still Operator Required: No Allergies apple [Apple] Allergy (Severe, Verified 02/15/23 15:29) ANAPHYLAXIS avocado [Avocado] Allergy (Severe, Verified 02/15/23 15:29) ANAPHYLAXIS fexofenadine [From JANINE] Allergy (Severe, Verified 02/15/23 15:29) ANAPHYLAXIS peanut [Peanut] Allergy (Severe, Verified 02/15/23 15:29) ANAPHYLAXIS acetaminophen [Percocet] Allergy (Unknown, Verified 02/15/23 15:29) nausea and vomiting naproxen [From NAPROSYN] Allergy (Unknown, Verified 02/15/23 15:29) UNKNOWN oxycodone [From PERCOCET] Adverse Reaction (Severe, Verified 02/15/23 15:29) NAUSEA, DIZZINESS, FALLS Medication List - Last Reconciled 02/15/23 by Shante Boateng MD acetaminophen ER 0 mg PO amlodipine 5 mg PO DAILY budesonide-formoterol 160-4.5 mcg/actuation (Symbicort) 2 puffs inhalation BID citalopram 10 mg PO QAM cyclobenzaprine 10 mg PO BID famotidine 40 mg PO DAILY 30 days glipizide 10 mg PO BID hydrochlorothiazide 50 mg PO DAILY lisinopril 40 mg PO DAILY loperamide 0 mg PO pantoprazole 40 mg PO QAM pravastatin 20 mg PO DAILY quetiapine 100 mg PO BEDTIME temazepam 15 mg PO BEDTIME topiramate 50 mg PO BID Do you need a note to return to daycare/school/sports/work: No HPI Asthma HPI Details 57 years old female is coming after 6 months for follow-up. She is being treated for bronchial asthma which has remained well controlled. However she also has chronic nasal allergy problem, and now more recently she is having postnasal discharge with feeling of lot of mucus in her throat which she cannot expectorate. She also has somewhat increased wheezing due to this mucus in the upper airways. She claims that she used to be on Singulair tablet in the past, which has not been prescribed for her recently. She is using Flonase 2 spray in each nostril daily. She has had allergic reaction to janine in the past so she avoids using any antihistaminic meds. [facility] Medical History (Updated 02/15/23 @ 15:45 by Shante Boateng MD) Allergic rhinitis Anxiety Asthma-COPD overlap syndrome COPD (chronic obstructive pulmonary disease) Diabetes Female pelvic pain GERD (gastroesophageal reflux disease) Hypertension Well woman exam Surgical History Hx of section Hx of tonsillectomy Hx of tubal ligation Family History Mother Diabetes HTN (hypertension) Social History Household Members: None Housing: Apartment Alcohol intake: current Alcohol intake frequency: holidays/special occasions only Patient Tobacco Use Status: Never used Tobacco Substance Use Type: Marijuana Current occupational status: disabled Sexual orientation: Straight/Heterosexual Gender identity: Female Review of Systems Const All systems reviewed & are unremarkable except as noted in HPI and below 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) ENT Reports no additional complaints and Reports nasal congestion (Mild intermittent) Card Denies chest pain, Denies irregular heart rhythm and Denies leg edema Resp Reports as per HPI GI Reports heartburn (At night) Reports no additional complaints Musc Reports no additional complaints Skin/Breast Reports system reviewed and no additional complaints, except as documented Neuro Reports no additional complaints Psych Reports anxiety and Reports depression Endo Reports no additional complaints Kendell/Lymph Reports no additional complaints Aller/Immun Reports no additional complaints Physical Exam Vital Signs: Last Vital Signs Pulse 86 02/15/23 15:15 BP 140/82 H 02/15/23 15:15 Pulse Ox 96 02/15/23 15:15 Oxygen Delivery Method Room Air 02/15/23 15:15 BMI result Body Mass Index 24.7 Const General: comfortable, no acute distress, alert and awake Orientation/consciousness: patient oriented x3 HEENT Head: Yes normal to inspection General nose exam: No nasal polyps present, No nasal discharge present and Other nasal findings present (Nasal congestion and hypertrophy of the nasal turbinates is noted ) Face and sinus: Yes sinuses nontender Mouth: oropharynx normal Throat: Yes posterior oropharynx normal Eyes General: appearance normal, both eyes and all related structures Visual Tolbert: visual tolbert abnormal by confrontation (Right eye is blind) Neck Neck: Yes normal visual inspection, Yes no lymphadenopathy, Yes trachea midline and Yes no JVD Thyroid: Thyroid normal Chest Chest palpation & inspection: normal inspection of the chest, normal palpation of entire chest wall and no tenderness Resp Other: Percussion note is resonant, breath sounds are slightly distant with prolonged expiratory phase. No wheezes or rhonchi are heard today, both lungs are very clear. Cardio Palpation: normal PMI Rate: regular rate Rhythm: regular rhythm Heart sounds: no gallops and no murmurs GI Palpation (GI): Soft to palpation, nontender, No hepatosplenomegaly present and no masses Auscultation: normal bowel sounds Back/Spine/Pelvis Thoracic/Lumbar Spine: thoracic and lumbar spine normal to inspection Skin General skin exam: no rashes or lesions noted Neuro General: patient oriented x3 and no focal motor deficits Cranial nerves: Yes CN's II-XII intact bilaterally Extrem General: Yes normal to inspection, Yes no clubbing, cyanosis or edema and Yes no calf tenderness Psych Appearance: grossly normal and well kempt Speech and movement: Normal speech and movement present Assessment & Plan Assessment & Plan (1) Asthma-COPD overlap syndrome: Comment: PER HISTORY AND PULMONARY FUNCTION TEST SHE DOES HAVE ASTHMA/COPD OVERLAP SYNDROME. TX: SYMBICORT 160-4.52 PUFFS B.I.D. TO CONTINUE. ALBUTEROL HFA 2 PUFFS Q 6 HOURS P.R.N. WHEN OUTDOORS. WHEN AT HOME SHE CAN USE ALBUTEROL WITH THE NEBULIZER Q 4-6 HOURS P.R.N. BUT ONLY SPARINGLY. Code(s): J44.9 - Chronic obstructive pulmonary disease, unspecified (2) Allergic rhinitis: Comment: AT PRESENT SHE IS HAVING A FLARE UP OF ALLERGIC RHINITIS, WITH POSTNASAL DISCHARGE AND LOT OF MUCUS IN THE UPPER AIRWAYS. TX WILL ORDER MONTELUKAST 10 MG DAILY FOR HER. CONTINUE TO USE FLONASE 2 SPRAY IN EACH NOSTRIL DAILY. ALSO RECOMMENDED THAT SHE SHOULD USE STEAM INHALATION 3 TIMES A DAY. WILL BE SEEN BACK IN 4 WEEKS FOR SHORT-TERM FOLLOW-UP. Code(s): J30.9 - Allergic rhinitis, unspecified Medications: New montelukast 10 mg PO DAILY 30 tabs 5RF ALLERGIC RHINITIS 30 days fluticasone propionate 50 mcg/actuation (Children's Flonase Allergy Relief) administer into each nostril 2 sprays intranasal DAILY 16 grams 3RF ALLERGIC RHINITIS 30 days Coding Level of Care Code Est Pt Level 3 (90941) Diagnoses Asthma-COPD overlap syndrome J44.9 Allergic rhinitis J30.9
[2023-02-15 15:15] VITALS: BP 140/82; PULSE 86; O2SAT 96; BMI 24.7
== END 2023-02-15 15:42 | disposition home or self-care (01) ==
PROVIDERS: PCP Internal Medicine; Visit Provider Internal Medicine
DX: J44.9 Chronic obstructive pulmonary disease, unspecified (principal); J30.9 Allergic rhinitis, unspecified
CPT/HCPCS: 99213

== ENCOUNTER → 2023-02-15 15:08 | Outpatient (BNVA) | payer MEDICAID, SELFPAY | PROVIDERS: Visit Provider Internal Medicine | DX: J44.9 Chronic obstructive pulmonary disease, unspecified (principal); J30.9 Allergic rhinitis, unspecified | CPT/HCPCS: 99212 ==

== ENCOUNTER 2023-05-25 09:34 | Outpatient (REF) | payer MEDICAID, SELFPAY ==
--- NOTE | ~2023-05-25 | XR_ITS ---
EXAMINATION: XR SHOULDER, RIGHT CLINICAL INFORMATION: Chronic, worsening right shoulder pain. COMPARISON: None available. TECHNIQUE: AP external rotation, Grashey, scapular Y, and axillary views of the right shoulder. FINDINGS: No acute fracture or dislocation. No significant joint space narrowing. Tiny inferior glenoid marginal osteophytes. No osseous erosion. Faint, lobulated soft tissue calcification adjacent to the greater tuberosity measuring up to 1.6 cm and consistent with infraspinatus calcific tendinitis. XR/XR shoulder RT min 2V IMPRESSION: 1. Infraspinatus calcific tendinitis. 2. Minimal glenohumeral arthrosis.
--- NOTE | ~2023-05-25 | XR_ITS ---
EXAMINATION: XR KNEE, RIGHT CLINICAL INFORMATION: Chronic right knee pain. Worsening pain. COMPARISON: None available. TECHNIQUE: AP, lateral, and tunnel views of the right knee. FINDINGS: Mild medial compartment joint space narrowing with tiny marginal osteophytes. No acute fracture or dislocation. No concerning lytic or blastic osseous lesion. No abnormal soft tissue calcification. No joint effusion. XR/XR knee RT 3V IMPRESSION: Mild medial compartment osteoarthritis.
== END 2023-05-25 09:35 | disposition home or self-care (01) ==
LOC: HO.HHCX 09:34
PROVIDERS: Visit Provider Family Medicine
DX: M25.511 Pain in right shoulder (principal); M25.561 Pain in right knee; G89.29 Other chronic pain
CPT/HCPCS: 73030; 73562

== ENCOUNTER 2023-06-20 13:03 | Outpatient (REF) | payer MEDICAID, SELFPAY ==
[2023-06-20 15:54] LABS: Creatinine Urine 47.45 mg/dL; Total Protein Urine Random < 7 mg/dL (<12)
[2023-06-20 15:59] LABS: Anion Gap 12 (12-20); Blood Urea Nitrogen 12 mg/dL (9-16); Calcium 9.4 mg/dL (8.4-10.2); Carbon Dioxide 28 mmol/L (22-29); Chloride 101 mmol/L (96-108); Estimated Glomerular Filt Rate > 60; Potassium 3.8 mmol/L (3.3-5.1); Sodium 137 mmol/L (135-145)
== END 2023-06-20 13:04 | disposition home or self-care (01) ==
LOC: HO.LAB 13:03
PROVIDERS: PCP Internal Medicine; Visit Provider Internal Medicine Hypertension Specialist
DX: I10 Essential (primary) hypertension (principal)
CPT/HCPCS: 36415; 80051; 82310; 82565; 82570; 84156; 84520; 99212

== ENCOUNTER 2023-06-20 13:03 | Outpatient (AMB) | payer MEDICAID, SELFPAY ==
[2023-06-20 13:32] VITALS: BP 160/84; PULSE 84; O2SAT 95; BMI 26.0
--- NOTE | 2023-06-20 13:32 | HO.NEPHOV ---
HPI HPI Comments History of Present Illness Details Middle-aged woman with resistant hypertension here for follow-up. She has been compliant with her medications. No new issues today. [facility] Medical History (Updated 02/15/23 @ 15:45 by Shante Boateng MD) Allergic rhinitis Asthma-COPD overlap syndrome GERD (gastroesophageal reflux disease) COPD (chronic obstructive pulmonary disease) Female pelvic pain Well woman exam Hypertension Anxiety Diabetes Surgical History Hx of tonsillectomy Hx of tubal ligation Hx of section Family History Mother Diabetes HTN (hypertension) Social History Household Members: None Housing: Apartment Alcohol intake: current Alcohol intake frequency: holidays/special occasions only Patient Tobacco Use Status: Never used Tobacco Substance Use Type: Marijuana Current occupational status: disabled Sexual orientation: Straight/Heterosexual Gender identity: Female Vital Signs 06/20/23 13:32 06/20/23 13:41 Height 5 ft 2 in Weight 142 lb 2 oz BMI 26.0 BP 160/84 H 140/80 H Blood Pressure Location Rt brachial Rt brachial Pulse 84 Pulse Source Pulse Oximeter Pulse Oximetry (%) 95 Oxygen Delivery Method Room Air Physical Exam Vital Signs: Last Vital Signs Pulse 84 06/20/23 13:32 BP 140/80 H 06/20/23 13:41 Pulse Ox 95 06/20/23 13:32 Oxygen Delivery Method Room Air 06/20/23 13:32 BMI result Body Mass Index 26.0 Const General: comfortable Nutritional Appearance: well nourished Orientation/consciousness: patient oriented x3 HEENT Head: No normal to inspection Mouth: moist mucous membranes Neck Neck: Yes supple and Yes no JVD Resp Auscultation: clear to auscultation bilaterally, no rales and rub present Cardio Jugular venous distension: no JVD Palpation: no palpable S3 and no palpable S4 Heart sounds: no rubs GI Palpation (GI): Soft to palpation and nontender Percussion: No Fluid wave present General: Yes no CVA tenderness Back/Spine/Pelvis Back: no CVA tenderness Skin General skin exam: no rashes or lesions noted Neuro General: patient oriented x3 Extrem General: Yes no pedal edema and No clubbing Assessment & Plan Assessment & Plan (1) Hypertension: Code(s): I10 - Essential (primary) hypertension Plan: 57-year-old woman with essential hypertension Blood pressure control. Discussed low-salt diet. I would continue the current regimen. Renal function has been stable I ordered a set of serum electrolytes BUN creatinine today. No changes were made to her prescriptions today. Orders: Orders Electrolytes Today I10 - Essential (primary) hypertension Blood Urea Nitrogen Today I10 - Essential (primary) hypertension Calcium Today I10 - Essential (primary) hypertension Total Protein Urine Random Today I10 - Essential (primary) hypertension Creatinine Today I10 - Essential (primary) hypertension Creatinine Urine Today I10 - Essential (primary) hypertension Coding Level of Care Code Est Pt Level 3 (40068) Diagnoses Hypertension I10 Results Reviewed Nephrology Results: Hgb 12.9 g/dl (12.0-16.0) 01/25/23 WBC 7.1 X10*3/uL (4.8-10.8) 01/25/23 Plt Count 194 X10*3/uL (160-400) 01/25/23 Sodium 143 mmol/L (135-145) 01/25/23 Potassium 4.1 mmol/L (3.3-5.1) 01/25/23 Chloride 101 mmol/L (96-108) 01/25/23 Carbon Dioxide 30 mmol/L (22-29) H 01/25/23 BUN 10 mg/dL (9-16) 01/25/23 Creatinine 0.82 mg/dL (0.5-1.4) 01/25/23 Calcium 10.4 mg/dL (8.4-10.2) H 01/25/23
[2023-06-20 13:41] VITALS: BP 140/80
== END 2023-06-20 13:44 | disposition home or self-care (01) ==
PROVIDERS: PCP Internal Medicine; Referring Provider Internal Medicine; Visit Provider Internal Medicine Hypertension Specialist
DX: I10 Essential (primary) hypertension (principal)
CPT/HCPCS: 99213

== ENCOUNTER 2023-08-05 17:29 | Emergency (ER) | payer MEDICAID, SELFPAY ==
--- NOTE | 2023-08-05 17:44 | ED_ITS ---
HPI - General Adult General Chief complaint: Eye Problems Stated complaint: Eye swelling Time Seen by Provider: 08/05/23 17:52 Source: patient Mode of arrival: ambulatory Limitations: no limitations History of Present Illness HPI narrative: Patient is a 58-year-old female who presents emergency department for evaluation swelling to the bilateral eyes. Onset was last night. She states that she applied Vaseline ointment to her nares last night, she reports she is unknown whether this may have gotten into the eyes. She woke today with swelling beneath the bilateral eyes that has increased throughout the day. She attempted to take Benadryl without any relief. She has known food allergens but denies any known exposure. Denies any shortness of breath or difficulty breathing. Related Data Home Medications Medication Instructions Recorded Confirmed citalopram 10 mg tablet 10 mg PO QAM 01/04/22 08/11/22 glipizide 10 mg tablet 10 mg PO BID 01/04/22 08/11/22 hydrochlorothiazide 50 mg tablet 50 mg PO DAILY 01/04/22 08/11/22 lisinopril 40 mg tablet 40 mg PO DAILY 01/04/22 08/11/22 pravastatin 20 mg tablet 20 mg PO DAILY 01/04/22 08/11/22 quetiapine 100 mg tablet 100 mg PO BEDTIME 01/04/22 08/11/22 topiramate 50 mg tablet 50 mg PO BID 01/04/22 08/11/22 amlodipine 2.5 mg tablet 5 mg PO DAILY 02/15/23 cyclobenzaprine 5 mg tablet 10 mg PO BID 02/15/23 pantoprazole 40 mg tablet,delayed 40 mg PO QAM 02/15/23 release temazepam 15 mg capsule 15 mg PO BEDTIME 02/15/23 acetaminophen 650 mg 650 mg PO PRN 06/20/23 tablet,extended release loperamide 2 mg capsule 2 mg PO PRN 06/20/23 Previous Rx's Medication Instructions Recorded famotidine 40 mg tablet 40 mg PO DAILY GERD 30 days #30 06/29/22 tabs montelukast 10 mg tablet 10 mg PO DAILY ALLERGIC RHINITIS 02/15/23 30 days #30 tabs fluticasone propionate 50 2 spray intranasal DAILY for 05/15/23 mcg/actuation nasal allergic rhinitis #48 mL spray,suspension amoxicillin 875 mg-potassium 1 tab PO BID #13 tabs 08/05/23 clavulanate 125 mg tablet Allergies Allergy/AdvReac Type Severity Reaction Status Date / Time apple [Apple] Allergy Severe ANAPHYLAXIS Verified 08/05/23 17:42 avocado [Avocado] Allergy Severe ANAPHYLAXIS Verified 08/05/23 17:42 fexofenadine [From RALPH] Allergy Severe ANAPHYLAXIS Verified 08/05/23 17:42 peanut [Peanut] Allergy Severe ANAPHYLAXIS Verified 08/05/23 17:42 acetaminophen [Percocet] Allergy Unknown nausea and Verified 08/05/23 17:42 vomiting naproxen [From NAPROSYN] Allergy Unknown UNKNOWN Verified 08/05/23 17:42 oxycodone [From PERCOCET] AdvReac Severe NAUSEA, Verified 08/05/23 17:42 DIZZINESS, FALLS Review of Systems Review of Systems: Yes all other systems are reviewed and are negative PMFSH Past Medical History Attestation statement: The following information was validated with the patient. Source: old records reviewed Medical History Allergic rhinitis Asthma-COPD overlap syndrome GERD (gastroesophageal reflux disease) COPD (chronic obstructive pulmonary disease) Female pelvic pain Well woman exam Hypertension Anxiety Diabetes Surgical History Hx of tonsillectomy Hx of tubal ligation Hx of section Family History Family History Mother Diabetes HTN (hypertension) Social History Social History Household Members: None Housing: Apartment Alcohol intake: current Alcohol intake frequency: holidays/special occasions only Patient Tobacco Use Status: Never used Tobacco Substance Use Type: Marijuana Advance Directives: No Advance Directives Information Provided: No Current occupational status: disabled Sexual orientation: Straight/Heterosexual Gender identity: Female Physical Exam ED Vital Signs: Vital Signs - 24 hr 08/05/23 17:46 Temperature 98.4 F Pulse Rate 85 Respiratory Rate 18 Blood Pressure 161/91 H Pulse Oximetry 97 Oxygen Delivery Method Room Air BMI result Body Mass Index 25.6 Appearance: Alert.?Oriented to person, place and time. No acute distress.?Normal affect. Eyes: Pupils equal, round and reactive to light.? EOMI. No nystagmus. Bilateral inferior preseptal erythema and swelling ENT: Pharynx normal.? Uvula midline. ? Neck: Normal inspection.? Neck supple.??No cervical lymphadenopathy CVS: Heart sounds normal. Normal heart rate and rhythm.? Pulses normal.?? Respiratory: No respiratory distress.? Lung sounds clear to auscultation bilaterally?? Abdomen: Soft and non-tender. Normoactive bowel sounds. Skin: Skin warm and dry.? Normal skin color.? Extremities: No lower extremity edema. Neuro: Moves all extremities spontaneously. Sensation intact bilaterally. No focal neuro deficits. Ambulates with normal steady gait. Medications Administered Discontinued Medications Generic Name Dose Route Start Last Admin Trade Name Freq PRN Reason Stop Dose Admin Amoxicillin/Clavulanate Potassium 875 mg 08/05/23 17:52 08/05/23 17:55 Amoxicillin/Potassium Clav 875 Mg Tablet PO 08/05/23 17:53 875 mg ONCE ONE Administration Medical Decision Making Medical Decision Making MDM Narrative: Patient is a 58 old female who presents emergency department for evaluation of swelling to the bilateral eyes. History and physical examination concerning for allergic reaction versus preseptal cellulitis. Patient legally blind in right eye since childhood, no acute vision changes to the left. Full EOMI, nonpainful movements, no nystagmus, proptosis/exophthalmos, low suspicion for orbital cellulitis. Patient provided first dose of antibiotics in ED for preseptal cellulitis and remainder prescription sent to pharmacy. Discussed strict return precautions. Differential Diagnosis Differential Diagnoses: The differential diagnosis associated with the presentation includes (As noted above) Admission/Observation Consideration of admission/observation: Escalation of care including admission/observation considered (See narrative above) Tests considered The following testing was considered but not selected: Serum labs/CT orbits, see narrative above Prescription Management I considered prescription management with: Antibiotic Discharge Plan Discharge Clinical Impression: Preseptal cellulitis Patient Disposition: Home, Self-Care Instructions: Periorbital Cellulitis in Adults (ED) Additional Instructions: As discussed, apply warm moist compresses to the eyes twice daily, avoid touching the eyes. A prescription for antibiotic was sent to your pharmacy, you received the first dose while in the emergency department. Please complete the entire course. Do not skip any doses or stopped taking early if your symptoms get better. If your symptoms do not improve or worsen in 1-2 days then this should be re- evaluated. Contact your primary care provider to arrange for a follow-up visit. You may return back to emergency department any new or worsening symptoms or concerns. Prescriptions: New amoxicillin-pot clavulanate 875-125 mg tablet 1 tab PO BID Qty: 13 0RF No Action fluticasone propionate 50 mcg/actuation spray,suspension 2 spray intranasal DAILY Qty: 48 1RF quetiapine 100 mg tablet 100 mg PO BEDTIME citalopram 10 mg tablet 10 mg PO QAM topiramate 50 mg tablet 50 mg PO BID lisinopril 40 mg tablet 40 mg PO DAILY glipizide 10 mg tablet 10 mg PO BID pravastatin 20 mg tablet 20 mg PO DAILY hydrochlorothiazide 50 mg tablet 50 mg PO DAILY amlodipine 2.5 mg tablet 5 mg PO DAILY cyclobenzaprine 5 mg tablet 10 mg PO BID famotidine 40 mg tablet 40 mg PO DAILY 30 Days Qty: 30 2RF loperamide 2 mg capsule 2 mg PO PRN pantoprazole 40 mg tablet,delayed release (DR/EC) 40 mg PO QAM temazepam 15 mg capsule 15 mg PO BEDTIME montelukast 10 mg tablet 10 mg PO DAILY 30 Days Qty: 30 5RF acetaminophen 650 mg tablet extended release 650 mg PO PRN Referrals: Karon Powell MD [Primary Care Provider] - Interventions: ED Discharge Assessment Last Done: 08/05/23 18:11 Discharge Date/Time: 08/05/23 18:11
[2023-08-05 17:46] VITALS: BP 161/91; PULSE 85; RESP 18; TEMP 36.9; O2SAT 97; BMI 25.6
[2023-08-05] MEDS: Amoxicillin/Potassium Clav 875 MG TABLET PO (17:55)
== END 2023-08-05 18:11 | disposition home or self-care (01) ==
PROVIDERS: Emergency Provider Emergency Medicine; PCP Internal Medicine
DX: L03.213 Periorbital cellulitis (principal); H00.036 Abscess of eyelid left eye, unspecified eyelid; H00.033 Abscess of eyelid right eye, unspecified eyelid; H02.846 Edema of left eye, unspecified eyelid; H02.843 Edema of right eye, unspecified eyelid; H54.8 Legal blindness, as defined in USA
CPT/HCPCS: 99282; 99283

== ENCOUNTER 2023-09-27 12:16 | Outpatient (REF) | payer MEDICAID, SELFPAY ==
[2023-09-27 13:15] LABS: MANUAL DIFF FLAG NO
[2023-09-27 13:34] LABS: Basophils Absolute Auto 0.1 X10*3/uL (0.0-0.2); Basophils Percent Auto 0.7 % (0-2); Eosinophils Absolute Auto 0.1 X10*3/uL (0.0-0.4); Eosinophils Percent Auto 1.5 % (0-4); Hematocrit 40.1 % (37.0-47.0); Hemoglobin 13.4 g/dl (12.0-16.0); Imm Gran Abs Auto 0.02 X10*3/uL (0.00-0.03); Imm Gran Pct Auto 0.3 % (0.0-0.4); Lymphocytes Absolute Auto 1.7 X10*3/uL (1.2-4.9); Lymphocytes Percent Auto 24.1 % (20-40); Mean Corpuscular HGB Conc 33.4 g/dl (31.0-35.0); Mean Corpuscular Hemoglobin 29.1 pg (27.0-33.0); Mean Corpuscular Volume 87.2 fL (80.0-98.0); Mean Platelet Volume 10.6 fL (9.4-12.3); Monocytes Absolute Auto 0.4 X10*3/uL (0.1-1.2); Monocytes Percent Auto 5.3 % (2-11); Neutrophils Absolute Auto 4.7 x10*3/uL (2.0-8.3); Neutrophils Percent Auto 68.1 % (45-73); Platelet Count 236 X10*3/uL (160-400); Red Cell Distribution Width 12.4 % (11.0-16.0); White Blood Count 6.8 X10*3/uL (4.8-10.8)
[2023-09-27 14:15] LABS: TSH reflex Free T4 1.25 uIU/mL (0.32-4.0)
[2023-09-27 14:17] LABS: Anion Gap 13 (12-20)
[2023-09-27 14:22] LABS: Alanine Aminotransferase 18 U/L (0-31); Albumin Level 4.5 g/dL (3.5-5.0); Alkaline Phosphatase 76 U/L (39-117); Aspartate Amino Transferase 17 U/L (5-31); Bilirubin Direct 0.1 mg/dL (0.0-0.5); Bilirubin Total 0.3 mg/dL (0.0-1.0); Blood Urea Nitrogen 12 mg/dL (9-16); Calcium 9.7 mg/dL (8.4-10.2); Carbon Dioxide 29 mmol/L (22-29); Chloride 103 mmol/L (96-108); Cholesterol 166 mg/dL (<200); Estimated Glomerular Filt Rate > 60; Glucose Random 251 mg/dL (60-115); HDL Cholesterol 42 mg/dL (>40); LDL Cholesterol Calculated 88 mg/dL (<100); Potassium 3.7 mmol/L (3.3-5.1); Sodium 141 mmol/L (135-145); Total Protein 7.5 g/dL (6.5-8.0); Triglycerides 181 mg/dL (<150)
[2023-09-27 14:26] LABS: Folate 7.1 ng/mL (> or = 4.0); Vitamin B12 373 pg/mL (200-900)
[2023-09-28 11:23] LABS: RPR Rapid Plasma Reagin NON-REACTIVE (NON-REACTIVE)
== END 2023-09-27 12:17 | disposition home or self-care (01) ==
LOC: HO.HHCL 12:16
PROVIDERS: Visit Provider Internal Medicine
DX: R68.89 Other general symptoms and signs (principal); R53.82 Chronic fatigue, unspecified
CPT/HCPCS: 36415; 80048; 80061; 80076; 82607; 82746; 84443; 85025; 86592

== ENCOUNTER 2023-11-16 14:58 | Emergency (ER) | payer MEDICAID, SELFPAY ==
--- NOTE | ~2023-11-16 | CT_ITS ---
EXAMINATION: NONCONTRAST HEAD CT NONCONTRAST MAXILLOFACIAL CT INDICATION INFORMATION: Headache, unresponsive to medications, evaluate for sinusitis. COMPARISON: CT head 07/04/2019. CT head and cervical spine 05/15/2019. TECHNIQUE: Separate noncontrast CT examinations of the head and maxillofacial bones were performed. Coronal and sagittal images were created for each examination at the technologist workstation. This CT examination was performed using dose optimization techniques as appropriate, variously including the following: *Automated exposure control *Adjustment of mA and/or kV according to patient size (this includes techniques or standardized protocols for targeted exams where dose is matched to indication/reason for exam; i.e. extremities or head) *Use of iterative reconstruction technique DLP: 834 mGy-cm FINDINGS: Head: There is no evidence of acute intracranial hemorrhage or territorial infarction. No abnormal mass effect or midline shift is seen. Layne to white matter differentiation is well preserved. No extra-axial fluid collections are identified. No hydrocephalus. No significant volume loss. There is no abnormal attenuation within the brain parenchyma. No acute soft tissue abnormality. No calvarial fracture. The mastoid air cells are well aerated. Maxillofacial: No acute maxillofacial fractures are seen. The frontal, maxillary, ethmoid, and sphenoid sinuses are well aerated. The mandibular heads are well-seated in the condylar fossa. Significant periapical cavities within the roof of the left superior molars (sagittal image 66, series 16). Smaller periapical lucency within the left inferior second molar (image 61, series 16). The orbits demonstrate a normal appearance bilaterally. The globes are intact, and there are no suspicious findings to suggest retrobulbar hemorrhage. Visualized portions of the cervical spine are unremarkable. CT/CT facial bones wo IV con IMPRESSION: 1. No acute intracranial abnormalities. 2. No acute maxillofacial fractures. 3. Periodontal disease as above; recommend dental specialist referral.
[2023-11-16 15:40] VITALS: BP 141/93; PULSE 87; RESP 17; TEMP 36.6; O2SAT 96; BMI 26.0
--- NOTE | 2023-11-16 15:43 | ED.GENADULT ---
HPI - General Adult General Chief complaint: General Medical Stated complaint: Facial swelling, headache, body aches Time Seen by Provider: 11/16/23 20:50 Source: patient Mode of arrival: ambulatory Limitations: no limitations History of Present Illness ED Provider: herbie SINGH narrative: Patient history of migraine headaches on Imitrex and Topamax complaining of headache for last 1 week localized mostly to the left side with light sensitivity nausea and vomiting no fever no recent head injury patient took Imitrex earlier today without much response Related Data Home Medications ?Medication ?Instructions ?Recorded ?Confirmed citalopram 10 mg tablet 10 mg PO QAM 01/04/22 08/11/22 glipizide 10 mg tablet 10 mg PO BID 01/04/22 08/11/22 hydrochlorothiazide 50 mg tablet 50 mg PO DAILY 01/04/22 08/11/22 lisinopril 40 mg tablet 40 mg PO DAILY 01/04/22 08/11/22 pravastatin 20 mg tablet 20 mg PO DAILY 01/04/22 08/11/22 quetiapine 100 mg tablet 100 mg PO BEDTIME 01/04/22 08/11/22 topiramate 50 mg tablet 50 mg PO BID 01/04/22 08/11/22 amlodipine 2.5 mg tablet 5 mg PO DAILY 02/15/23 cyclobenzaprine 5 mg tablet 10 mg PO BID 02/15/23 pantoprazole 40 mg tablet,delayed 40 mg PO QAM 02/15/23 release temazepam 15 mg capsule 15 mg PO BEDTIME 02/15/23 acetaminophen 650 mg 650 mg PO PRN 06/20/23 tablet,extended release loperamide 2 mg capsule 2 mg PO PRN 06/20/23 Previous Rx's ?Medication ?Instructions ?Recorded famotidine 40 mg tablet 40 mg PO DAILY GERD 30 days #30 06/29/22 tabs amoxicillin 875 mg-potassium 1 tab PO BID #13 tabs 08/05/23 clavulanate 125 mg tablet montelukast 10 mg tablet 10 mg PO DAILY ALLERGIC RHINITIS 08/11/23 30 days #30 tabs fluticasone propionate 50 2 spray intranasal DAILY for 11/07/23 mcg/actuation nasal allergic rhinitis #48 mL spray,suspension hnsadhrbhh-pxhiuwhymxdbb-uodivpte 1 cap PO Q8H PRN pain #20 caps 11/16/23 50 mg-300 mg-40 mg capsule (Fioricet) sumatriptan succinate 50 mg tablet 50 mg PO Q2H PRN migraine headache 11/16/23 (Imitrex) #10 tabs Allergies Allergy/AdvReac Type Severity Reaction Status Date / Time apple [Apple] Allergy Severe ANAPHYLAXIS Verified 11/16/23 15:44 avocado [Avocado] Allergy Severe ANAPHYLAXIS Verified 11/16/23 15:44 fexofenadine [From RALPH] Allergy Severe ANAPHYLAXIS Verified 11/16/23 15:44 peanut [Peanut] Allergy Severe ANAPHYLAXIS Verified 11/16/23 15:44 acetaminophen [Percocet] Allergy Unknown nausea and Verified 11/16/23 15:44 vomiting oxycodone [From PERCOCET] AdvReac Severe NAUSEA, Verified 11/16/23 15:44 DIZZINESS, FALLS Review of Systems Review of Systems: Yes all other systems are reviewed and are negative PMFSH Past Medical History Medical History Allergic rhinitis Asthma-COPD overlap syndrome GERD (gastroesophageal reflux disease) COPD (chronic obstructive pulmonary disease) Female pelvic pain Well woman exam Hypertension Anxiety Diabetes Surgical History Hx of tonsillectomy Hx of tubal ligation Hx of section Family History Family History Mother Diabetes HTN (hypertension) Social History Social History Household Members: None Housing: Apartment Alcohol intake: current Alcohol intake frequency: holidays/special occasions only Patient Tobacco Use Status: Never used Tobacco Smoked in Last 30 Days: Yes Use of substances other than those prescribed or required for medical reasons: Yes Substance Use Type: Marijuana Substance Use Frequency: Occasionally Advance Directives: No Advance Directives Information Provided: No Do you have a plan to hurt others: No Plan Current occupational status: disabled Sexual orientation: Straight/Heterosexual Gender identity: Female Physical Exam ED Vital Signs: Vital Signs - 24 hr 11/16/23 15:40 11/16/23 20:00 11/16/23 22:00 Temperature 98 F 97.7 F 97.1 F Pulse Rate 87 67 61 Respiratory Rate 17 Blood Pressure 141/93 H 182/85 H 164/79 H Pulse Oximetry 96 97 98 Oxygen Delivery Method Room Air Room Air Room Air 11/16/23 23:35 11/17/23 00:37 Temperature 98.1 F 98.1 F Pulse Rate 64 64 Respiratory Rate 18 18 Blood Pressure 169/89 H 169/89 H Pulse Oximetry 98 98 Oxygen Delivery Method Room Air Room Air BMI result Body Mass Index 26.0 Appearance: Alert. Oriented X3. No acute distress. Eyes: PERRLA, No Nystagmus ENT: Pharynx normal. Oral Mucosa moist temporal artery nontender no sinus tenderness no gum or tooth tenderness Neck: Normal inspection. Neck supple. CVS: Normal heart rate and rhythm. Pulses normal. Respiratory: No respiratory distress. Equal air entry bilateral, no wheezing/rales/rhonchi Abdomen: Soft and nontender. Bowel sounds are present, no mass palpable, no CVA tenderness Skin: Skin warm and dry. Normal skin color. Normal skin turgor. Extremities: No lower extremity edema. No calf tenderness Neuro: Oriented X 3. No motor deficit. No sensory deficit.No cerebellar signs , cranial nerves II-XII intact Course Course Course Narrative: This is a Rapid Medical Examination (RME) performed by Cristian Plunkett PA-C in triage. Full HPI, ROS, assessment and treatment plan per primary provider in the Main ED. 58-year-old female medical history significant for migraines presents to the ED today with migraine, sinus pain and blurred vision x7 days. Reports history of migraines however states that this feels different. Pain is not improved with Imitrex and return at home. Denies nausea, vomiting, vision loss. well appaering. afebrile. perrla. exam nonfocal. Tender to palpation over maxillary sinuses. Plan: Viral serology, strep swab, CT head/brain/facial bones Medications Administered Discontinued Medications Generic Name Dose Route Start Last Admin Trade Name Freq PRN Reason Stop Dose Admin Dexamethasone Sodium Phosphate 10 mg 11/16/23 21:05 11/16/23 21:28 Dexamethasone Sod Phosphate 10 Mg/Ml Vial IVPUSH 11/16/23 21:06 10 mg ONCE ONE Administration Diphenhydramine HCl 50 mg 11/16/23 21:05 11/16/23 21:28 Diphenhydramine Hcl 50 Mg/Ml Vial IVPUSH 11/16/23 21:06 50 mg ONCE ONE Administration Sodium Chloride 1,000 mls @ 999 mls/hr 11/16/23 21:05 11/16/23 21:22 Ns IV 11/16/23 22:05 999 mls/hr .Q1H1M ONE Administration Ketorolac Tromethamine 30 mg 11/16/23 21:05 11/16/23 21:28 Ketorolac Tromethamine 30 Mg/Ml Vial IVPUSH 11/16/23 21:06 30 mg ONCE ONE Administration Metoclopramide HCl 10 mg 11/16/23 21:05 11/16/23 21:28 Metoclopramide Hcl 10 Mg/2 Ml Vial IVPUSH 11/16/23 21:06 10 mg ONCE ONE Administration Morphine Sulfate 4 mg 11/16/23 22:30 11/17/23 00:28 Morphine Sulfate 4 Mg/Ml Cartridge IVPUSH 11/16/23 22:31 4 mg ONCE ONE Administration Protocol Medical Decision Making Medical Decision Making MDM Narrative: Patient's migraine headache poor response to Imitrex and Topamax at home responded to IV morphine Toradol steroid Reglan and Benadryl feels much better discharge patient home labs are stable Lab Data [facility] Lab Attestation statement: I reviewed the patient's lab results. Labs: Lab Results 11/16/23 11/16/23 Range/Units 16:06 22:35 Influenza Type A (PCR) NEGATIVE (Negative) Influenza Type B (PCR) NEGATIVE (Negative) RSV RNA Qual (PCR) NEGATIVE (Negative) SARS-CoV-2 RNA (RT-PCR) NEGATIVE (Negative) S. pyogenes GrpA IDALIA Negative (Negative) Independent Interpretation I performed an independent interpretation of an: CT Scan Radiology Impression Discussion of test interpretation with radiology: I have reviewed the radiologist's reading. Discharge Plan Discharge Clinical Impression: Migraine Patient Disposition: Home, Self-Care Instructions: Migraine Headache (ED) Additional Instructions: Continue take your medication for migraine as prescribed by your neurologist Imitrex and Topamax Zofran for nausea Follow with neurologist Prescriptions: New sumatriptan succinate [Imitrex] 50 mg tablet 50 mg PO Q2H PRN (Reason: migraine headache) Qty: 10 0RF Rx Instructions: do not exceed 2 doses per 24 hrs xiczfvdvqr-fyjeeqobdytyk-trgb [Fioricet] 50-300-40 mg capsule 1 cap PO Q8H PRN (Reason: pain) Qty: 20 0RF No Action montelukast 10 mg tablet 10 mg PO DAILY 30 Days Qty: 30 5RF fluticasone propionate 50 mcg/actuation spray,suspension 2 spray intranasal DAILY Qty: 48 1RF amoxicillin-pot clavulanate 875-125 mg tablet 1 tab PO BID Qty: 13 0RF quetiapine 100 mg tablet 100 mg PO BEDTIME citalopram 10 mg tablet 10 mg PO QAM topiramate 50 mg tablet 50 mg PO BID lisinopril 40 mg tablet 40 mg PO DAILY glipizide 10 mg tablet 10 mg PO BID pravastatin 20 mg tablet 20 mg PO DAILY hydrochlorothiazide 50 mg tablet 50 mg PO DAILY amlodipine 2.5 mg tablet 5 mg PO DAILY cyclobenzaprine 5 mg tablet 10 mg PO BID famotidine 40 mg tablet 40 mg PO DAILY 30 Days Qty: 30 2RF loperamide 2 mg capsule 2 mg PO PRN pantoprazole 40 mg tablet,delayed release (DR/EC) 40 mg PO QAM temazepam 15 mg capsule 15 mg PO BEDTIME acetaminophen 650 mg tablet extended release 650 mg PO PRN Interventions: ED Discharge Assessment Last Done: 11/17/23 00:37 Discharge Date/Time: 11/17/23 00:45 Print Language: Romanian
[2023-11-16 17:05] LABS: Influenza A PCR NEGATIVE (Negative); Influenza B PCR NEGATIVE (Negative); Resp Syncy Virus RNA Qual PCR NEGATIVE (Negative); SARS COV2 PCR INHOUSE NEGATIVE (Negative)
[2023-11-16 20:00] VITALS: BP 182/85; PULSE 67; TEMP 36.5; O2SAT 97
[2023-11-16] MEDS: 0.9 % Sodium Chloride 1,000 ML 999 ML IV (21:22)
[2023-11-16] MEDS: dexAMETHasone sod phosphate 10 MG/ML VIAL IVPUSH (21:28)
[2023-11-16] MEDS: Ketorolac Tromethamine 30 MG/ML VIAL IVPUSH (21:28)
[2023-11-16] MEDS: Metoclopramide HCl 10 MG/2 ML VIAL IVPUSH (21:28)
[2023-11-16] MEDS: diphenhydrAMINE HCL 50 MG/ML VIAL IVPUSH (21:28)
[2023-11-16 22:00] VITALS: BP 164/79; PULSE 61; TEMP 36.2; O2SAT 98
[2023-11-16 22:49] LABS: IDNOW Serial# 6674DD1D; Strep A Nucleic Acid Negative (Negative)
[2023-11-16 23:35] VITALS: BP 169/89; PULSE 64; RESP 18; TEMP 36.7; O2SAT 98
[2023-11-17] MEDS: Morphine Sulfate 4 MG/ML CARTRIDGE IVPUSH (00:28)
[2023-11-17 00:37] VITALS: BP 169/89; PULSE 64; RESP 18; TEMP 36.7; O2SAT 98
== END 2023-11-17 00:45 | disposition home or self-care (01) ==
PROVIDERS: Physician Assistant Medical; Emergency Provider Internal Medicine; PCP Internal Medicine
DX: G43.909 Migraine, unspecified, not intractable, without status migrainosus (principal); M79.10 Myalgia, unspecified site; R11.2 Nausea with vomiting, unspecified; R22.1 Localized swelling, mass and lump, neck; Z79.899 Other long term (current) drug therapy; Z20.822 Contact with and (suspected) exposure to COVID-19
CPT/HCPCS: 0241U; 70450; 70486; 87651; 96374; 96375; 99284; J1100; J1200; J1885; J2270; J2765

== ENCOUNTER 2023-12-19 12:01 | Outpatient (AMB) | payer MEDICAID, SELFPAY ==
[2023-12-19 12:09] VITALS: BP 100/60; PULSE 89; O2SAT 96; BMI 25.6
--- NOTE | 2023-12-19 12:09 | HO.NEPHOV ---
Vital Signs 12/19/23 12:09 Height 5 ft 2 in Weight 140 lb BMI 25.6 BP 100/60 Blood Pressure Location Rt brachial Position Sitting Pulse 89 Pulse Source Pulse Oximeter Pulse Oximetry (%) 96 Oxygen Delivery Method Room Air Intake Visit Reasons: HTN 6 Months fu/ Conf [employer] Counselor Required: No Accompanied by: Self / Same As Patient Allergies apple [Apple] Allergy (Severe, Verified 12/19/23 12:11) ANAPHYLAXIS avocado [Avocado] Allergy (Severe, Verified 12/19/23 12:11) ANAPHYLAXIS fexofenadine [From RALPH] Allergy (Severe, Verified 12/19/23 12:11) ANAPHYLAXIS peanut [Peanut] Allergy (Severe, Verified 12/19/23 12:11) ANAPHYLAXIS acetaminophen [Percocet] Allergy (Unknown, Verified 12/19/23 12:11) nausea and vomiting oxycodone [From PERCOCET] Adverse Reaction (Severe, Verified 12/19/23 12:11) NAUSEA, DIZZINESS, FALLS Medication List - Last Reconciled 12/19/23 by Xiang Eddy MD acetaminophen ER 650 mg PO PRN amlodipine 5 mg PO QAM amoxicillin-pot clavulanate 875-125 mg 1 tab PO BID PRN qdeqegvnaa-oqzyphhhpspco-agsq 50-300-40 mg (Fioricet) 1 cap PO Q8H PRN cetirizine 10 mg PO QAM cholecalciferol (vitamin D3) 25 mcg PO QAM citalopram 10 mg PO QAM cyclobenzaprine 10 mg PO BID empagliflozin (Jardiance) 10 mg PO QAM famotidine 40 mg PO DAILY 30 days fluticasone propionate 50 mcg/actuation 2 sprays intranasal DAILY glipizide 10 mg PO BID hydrochlorothiazide 50 mg PO DAILY lisinopril 40 mg PO DAILY loperamide 2 mg PO PRN montelukast 10 mg PO DAILY 30 days pantoprazole 40 mg PO QAM pravastatin 20 mg PO DAILY quetiapine 100 mg PO BEDTIME sitagliptin phosphate (Januvia) 25 mg PO QAM sumatriptan succinate (Imitrex) 50 mg PO Q2H PRN temazepam 15 mg PO BEDTIME PRN topiramate 50 mg PO BID HPI Comments Details: Middle-aged woman with resistant hypertension here for follow-up. She has been compliant with her medications. No new issues today. [facility] Medical History Allergic rhinitis Asthma-COPD overlap syndrome GERD (gastroesophageal reflux disease) COPD (chronic obstructive pulmonary disease) Female pelvic pain Well woman exam Hypertension Anxiety Diabetes Surgical History Hx of tonsillectomy Hx of tubal ligation Hx of section Family History Mother Diabetes HTN (hypertension) Social History Household Members: None Housing: Apartment Alcohol intake: current Alcohol intake frequency: holidays/special occasions only Patient Tobacco Use Status: Never used Tobacco Substance Use Type: Marijuana Current occupational status: disabled Sexual orientation: Straight/Heterosexual Gender identity: Female Physical Exam Vital Signs: Last Vital Signs Pulse 89 12/19/23 12:09 BP 100/60 12/19/23 12:09 Pulse Ox 96 12/19/23 12:09 Oxygen Delivery Method Room Air 12/19/23 12:09 BMI result Body Mass Index 25.6 Results Reviewed Nephrology Results: Hgb 13.4 g/dl (12.0-16.0) 09/27/23 WBC 6.8 X10*3/uL (4.8-10.8) 09/27/23 Plt Count 236 X10*3/uL (160-400) 09/27/23 Sodium 141 mmol/L (135-145) 09/27/23 Potassium 3.7 mmol/L (3.3-5.1) 09/27/23 Chloride 103 mmol/L (96-108) 09/27/23 Carbon Dioxide 29 mmol/L (22-29) 09/27/23 BUN 12 mg/dL (9-16) 09/27/23 Creatinine 0.82 mg/dL (0.5-1.4) 09/27/23 Calcium 9.7 mg/dL (8.4-10.2) 09/27/23 Urine Creatinine 47.45 mg/dL 06/20/23 Assessment & Plan Assessment & Plan (1) Hypertension: Code(s): I10 - Essential (primary) hypertension Category: Medical Plan: 57-year-old woman with essential hypertension Blood pressure well controlled Discussed low-salt diet. I would continue the current regimen. Renal function has been stable I ordered a set of serum electrolytes BUN creatinine today. No changes were made to her prescriptions today. Orders: Orders Total Protein Urine Random 6 Months MD Shamika Patrick0 - Essential (primary) hypertension UA and rflx microscopic 6 Months MD Shamika Patrick0 - Essential (primary) hypertension Creatinine Urine 6 Months MD Shamika Patrick0 - Essential (primary) hypertension Basic Metabolic Panel 6 Months MD Shamika Patrick0 - Essential (primary) hypertension Medications: Changed From amoxicillin-pot clavulanate 875-125 mg 1 tab PO BID 13 tabs 0RF To amoxicillin-pot clavulanate 875-125 mg 1 tab PO BID PRN Mercedes Morris CNP Coding Level of Care Code Est Pt Level 3 (20888) Diagnoses Hypertension I10
== END 2023-12-19 12:28 | disposition home or self-care (01) ==
PROVIDERS: PCP Internal Medicine; Referring Provider Internal Medicine; Visit Provider Internal Medicine Hypertension Specialist
DX: I10 Essential (primary) hypertension (principal)
CPT/HCPCS: 99213

== ENCOUNTER → 2023-12-19 12:01 | Outpatient (BNVA) | payer MEDICAID, SELFPAY | PROVIDERS: PCP Internal Medicine; Visit Provider Internal Medicine Hypertension Specialist | DX: I10 Essential (primary) hypertension (principal) | CPT/HCPCS: 99212 ==

== ENCOUNTER 2024-01-21 15:07 | Emergency (ER) | payer MEDICAID, SELFPAY ==
[2024-01-21 15:13] VITALS: BP 134/94; PULSE 105; RESP 20; TEMP 36.4; O2SAT 96; BMI 25.1
--- NOTE | 2024-01-21 17:00 | ED_ITS ---
HPI - General Adult General Chief complaint: Dental/Oral Stated complaint: sore throat, not feeling well Time Seen by Provider: 01/21/24 15:44 History of Present Illness HPI narrative: Patient complains of dental pain x1 week in the left upper molar, it hurts to chew, she is also reporting a headache typical and similar to many prior, she calls it a migraine and says she gets them very frequently and she believes it was triggered by the toothache The headache was gradual in onset there is no associated fever or trauma there is no vision change no weakness or dizziness no loss of sensation no rapid onset Related Data Home Medications ?Medication ?Instructions ?Recorded ?Confirmed citalopram 10 mg tablet 10 mg PO QAM 01/04/22 12/19/23 glipizide 10 mg tablet 10 mg PO BID 01/04/22 12/19/23 hydrochlorothiazide 50 mg tablet 50 mg PO DAILY 01/04/22 12/19/23 lisinopril 40 mg tablet 40 mg PO DAILY 01/04/22 12/19/23 pravastatin 20 mg tablet 20 mg PO DAILY 01/04/22 12/19/23 quetiapine 100 mg tablet 100 mg PO BEDTIME 01/04/22 12/19/23 topiramate 50 mg tablet 50 mg PO BID 01/04/22 12/19/23 cyclobenzaprine 5 mg tablet 10 mg PO BID 02/15/23 12/19/23 pantoprazole 40 mg tablet,delayed 40 mg PO QAM 02/15/23 12/19/23 release acetaminophen 650 mg 650 mg PO PRN 06/20/23 12/19/23 tablet,extended release loperamide 2 mg capsule 2 mg PO PRN 06/20/23 12/19/23 amlodipine 5 mg tablet 5 mg PO QAM 12/19/23 12/19/23 amoxicillin 875 mg-potassium 1 tab PO BID PRN 12/19/23 12/19/23 clavulanate 125 mg tablet cetirizine 10 mg tablet 10 mg PO QAM 12/19/23 12/19/23 cholecalciferol (vitamin D3) 25 25 mcg PO QAM 12/19/23 12/19/23 mcg (1,000 unit) tablet empagliflozin 10 mg tablet 10 mg PO QAM 12/19/23 12/19/23 (Jardiance) sitagliptin phosphate 25 mg tablet 25 mg PO QAM 12/19/23 12/19/23 (Januvia) temazepam 15 mg capsule 15 mg PO BEDTIME PRN 12/19/23 12/19/23 Previous Rx's ?Medication ?Instructions ?Recorded famotidine 40 mg tablet 40 mg PO DAILY GERD 30 days #30 06/29/22 tabs fluticasone propionate 50 2 spray intranasal DAILY for 11/07/23 mcg/actuation nasal allergic rhinitis #48 mL spray,suspension khqqxhibiw-nqezywlekgycv-firoexkj 1 cap PO Q8H PRN pain #20 caps 11/16/23 50 mg-300 mg-40 mg capsule (Fioricet) sumatriptan succinate 50 mg tablet 50 mg PO Q2H PRN migraine headache 11/16/23 (Imitrex) #10 tabs montelukast 10 mg tablet 10 mg PO DAILY ALLERGIC RHINITIS 11/20/23 30 days #30 tabs amoxicillin 875 mg-potassium 1 tab PO Q12H 7 days #14 tabs 01/21/24 clavulanate 125 mg tablet bcviaeueln-jbsjcscenisly-aclxdxfq 1 cap PO TID PRN pain #10 caps 01/21/24 50 mg-300 mg-40 mg capsule (Fioricet) ibuprofen 600 mg tablet 600 mg PO Q6H PRN pain #20 tabs 01/21/24 Allergies Allergy/AdvReac Type Severity Reaction Status Date / Time apple [Apple] Allergy Severe ANAPHYLAXIS Verified 01/21/24 15:21 avocado [Avocado] Allergy Severe ANAPHYLAXIS Verified 01/21/24 15:21 fexofenadine [From RALPH] Allergy Severe ANAPHYLAXIS Verified 01/21/24 15:21 peanut [Peanut] Allergy Severe ANAPHYLAXIS Verified 01/21/24 15:21 acetaminophen [Percocet] Allergy Unknown nausea and Verified 01/21/24 15:21 vomiting oxycodone [From PERCOCET] AdvReac Severe NAUSEA, Verified 01/21/24 15:21 DIZZINESS, FALLS PMFSH Past Medical History Source: nursing notes reviewed Medical History Allergic rhinitis Asthma-COPD overlap syndrome GERD (gastroesophageal reflux disease) COPD (chronic obstructive pulmonary disease) Female pelvic pain Well woman exam Hypertension Anxiety Diabetes Surgical History Hx of tonsillectomy Hx of tubal ligation Hx of section Family History Family History Mother Diabetes HTN (hypertension) Social History Social History Household Members: None Housing: Apartment Alcohol intake: current Alcohol intake frequency: holidays/special occasions only Patient Tobacco Use Status: Never used Tobacco Substance Use Type: Marijuana Advance Directives: No Advance Directives Information Provided: Yes Do you have a plan to hurt others: No Plan Current occupational status: disabled Sexual orientation: Straight/Heterosexual Gender identity: Female Physical Exam ED Vital Signs: Vital Signs - 24 hr 01/21/24 15:13 Temperature 97.6 F Pulse Rate 105 H Respiratory Rate 20 Blood Pressure 134/94 H Pulse Oximetry 96 Oxygen Delivery Method Room Air BMI result Body Mass Index 25.1 General appearance is no acute distress The eyes no redness or discharge The ears tympanic membranes are intact and normal color without perforation no redness no narrowing of canals Dental exam the left upper molar is very tender to touch, no obvious abscess, no fluctuance in the gum, no impairment of breathing or swallowing, no tenderness or swelling under the tongue, no drooling, voice is normal The pharynx is clear without redness swelling or exudate membranes are moist Neck is supple Respiratory no distress Skin no rash Extremities full range of motion x4 Neuro gait and balance are normal, interaction comprehension expression all normal, cranial nerves 2-12 intact as tested, motor 5/5 x4, Course Course Course Narrative: Patient's tooth was treated with Augmentin and analgesics, as well as recommend follow closely with dentist The typical migraine may resolve with the Tylenol and Motrin but if not she has used Fioricet in the past so she is given a prescription for Fioricet, no red flags with the headache which is typical of many prior Medications Administered Discontinued Medications Generic Name Dose Route Start Last Admin Trade Name Freq PRN Reason Stop Dose Admin Acetaminophen 975 mg 01/21/24 17:12 01/21/24 17:22 Acetaminophen 325 Mg Tablet PO 01/21/24 17:13 975 mg ONCE ONE Administration Amoxicillin/Clavulanate Potassium 875 mg 01/21/24 17:10 01/21/24 17:21 Amoxicillin/Potassium Clav 875 Mg Tablet PO 01/21/24 17:11 875 mg ONCE ONE Administration Ketorolac Tromethamine 30 mg 01/21/24 17:12 01/21/24 17:22 Ketorolac Tromethamine 30 Mg/Ml Vial IM 01/21/24 17:13 30 mg ONCE ONE Administration Discharge Plan Discharge Clinical Impression: Dental infection, Headache Patient Disposition: Home, Self-Care Additional Instructions: Most important fair tooth is to follow with the dentist, if yours is not available tried the numbers off the sheet we gave you Also it is very important when you call the dentist's office to say that you are having any emergency a really bad toothache so they will almost always schedule you in a reasonable amount of time as opposed to saying they will see you in a year We wrote Augmentin antibiotic, Motrin Tylenol for pain for the tooth, and you can try Fioricet for your migraine Return any time any worse condition or any concerns Prescriptions: New galkhpuxwz-vcupiqxkkquin-knoc [Fioricet] 50-300-40 mg capsule 1 cap PO TID PRN (Reason: pain) Qty: 10 0RF ibuprofen 600 mg tablet 600 mg PO Q6H PRN (Reason: pain) Qty: 20 0RF amoxicillin-pot clavulanate 875-125 mg tablet 1 tab PO Q12H 7 Days Qty: 14 0RF No Action fluticasone propionate 50 mcg/actuation spray,suspension 2 spray intranasal DAILY Qty: 48 1RF montelukast 10 mg tablet 10 mg PO DAILY 30 Days Qty: 30 2RF sumatriptan succinate [Imitrex] 50 mg tablet 50 mg PO Q2H PRN (Reason: migraine headache) Qty: 10 0RF Rx Instructions: do not exceed 2 doses per 24 hrs dncspygggb-ksusnhgupgfiz-oatz [Fioricet] 50-300-40 mg capsule 1 cap PO Q8H PRN (Reason: pain) Qty: 20 0RF quetiapine 100 mg tablet 100 mg PO BEDTIME citalopram 10 mg tablet 10 mg PO QAM topiramate 50 mg tablet 50 mg PO BID lisinopril 40 mg tablet 40 mg PO DAILY glipizide 10 mg tablet 10 mg PO BID pravastatin 20 mg tablet 20 mg PO DAILY hydrochlorothiazide 50 mg tablet 50 mg PO DAILY cyclobenzaprine 5 mg tablet 10 mg PO BID famotidine 40 mg tablet 40 mg PO DAILY 30 Days Qty: 30 2RF loperamide 2 mg capsule 2 mg PO PRN pantoprazole 40 mg tablet,delayed release (DR/EC) 40 mg PO QAM acetaminophen 650 mg tablet extended release 650 mg PO PRN temazepam 15 mg capsule 15 mg PO BEDTIME PRN amoxicillin-pot clavulanate 875-125 mg tablet 1 tab PO BID PRN Jardiance 10 mg tablet 10 mg PO QAM Januvia 25 mg tablet 25 mg PO QAM cholecalciferol (vitamin D3) 25 mcg (1,000 unit) tablet 25 mcg PO QAM amlodipine 5 mg tablet 5 mg PO QAM cetirizine 10 mg tablet 10 mg PO QAM Print Language: Luxembourgish
[2024-01-21] MEDS: Amoxicillin/Potassium Clav 875 MG TABLET PO (17:21)
[2024-01-21] MEDS: Ketorolac Tromethamine 30 MG/ML VIAL IM (17:22)
[2024-01-21] MEDS: Acetaminophen 325 MG TABLET 975 MG PO (17:22)
[2024-01-21 17:40] VITALS: BP 150/83; PULSE 89; RESP 18; TEMP 36.8; O2SAT 97
[2024-01-21 17:48] VITALS: BP 150/83; PULSE 89; RESP 18; TEMP 36.8; O2SAT 97
== END 2024-01-21 18:02 | disposition home or self-care (01) ==
PROVIDERS: Emergency Provider Emergency Medicine; PCP Internal Medicine
DX: K04.7 Periapical abscess without sinus (principal); J02.9 Acute pharyngitis, unspecified; R51.9 Headache, unspecified
CPT/HCPCS: 96372; 99283; 99284; J1885

== ENCOUNTER → 2024-02-13 14:00 | Outpatient (BNV) | payer MEDICAID, SELFPAY | PROVIDERS: PCP Internal Medicine; Visit Provider Internal Medicine | DX: Z12.31 Encounter for screening mammogram for malignant neoplasm of breast (principal) | CPT/HCPCS: 77063; 77067 ==

== ENCOUNTER 2024-02-13 14:09 | Outpatient (REF) | payer MEDICAID, SELFPAY ==
--- NOTE | ~2024-02-13 | MM_ITS ---
EXAMINATION: MM SCREENING DIGITAL BREAST TOMOSYNTHESIS, BILATERAL CLINICAL INFORMATION: Screening. Asymptomatic. COMPARISON: Mammography: Comparison is made with available priors TECHNIQUE: Digital breast mammography with tomosynthesis is performed in both the craniocaudal and mediolateral oblique views along with computer-aided detection (CAD). FINDINGS: The breasts are heterogeneously dense, which may obscure small masses (ACR BI-RADS breast composition Category c). There are no significant masses, abnormal calcifications, or other abnormalities. MM/MM tomosynthesis screening BI IMPRESSION: No mammographic evidence of malignancy. ASSESSMENT: BI-RADS BI-RADS 1 - Negative RECOMMENDATION: Routine annual mammography screening. 1 year F/U This examination should not preclude the clinical evaluation of a suspicious palpable abnormality. This patient's information was entered into a reminder system with a target due date for their next mammogram. Electronically signed by: Aridana Stovall DO 03/03/2024 09:14 AM EDT
== END 2024-02-13 14:10 | disposition home or self-care (01) ==
LOC: HO.MAMMO 14:09
PROVIDERS: PCP Internal Medicine; Visit Provider Internal Medicine
DX: Z12.31 Encounter for screening mammogram for malignant neoplasm of breast (principal)
CPT/HCPCS: 77063; 77067

== ENCOUNTER 2024-05-24 14:02 | Outpatient (REF) | payer MEDICAID, SELFPAY | END 2024-05-24 14:03 | disposition home or self-care (01) | LOC: HO.HHCX 14:02 | PROVIDERS: PCP Internal Medicine; Visit Provider Pediatrics | DX: M54.50 Low back pain, unspecified (principal) | CPT/HCPCS: 72100 ==

== ENCOUNTER 2024-06-17 09:45 | Outpatient (REF) | payer MEDICAID, SELFPAY ==
[2024-06-17 12:27] LABS: Appearance Urine Clear; Color Urine Yellow; Glucose Urine UA >=1000 mg/dL (Negative); Leukocyte Esterase Urine Negative (Negative); Nitrite Urine Negative (Negative); Specific Gravity - Urine >= 1.030 (1.005-1.025); UMIC TRIGGER UA YES; Urine Blood Negative (Negative); Urine Ketones Trace mg/dL (Negative); Urine Protein Trace mg/dL (Neg-Trace)
[2024-06-17 12:34] LABS: Bacteria Urine 1+ (None Seen); Hyaline Casts Urine 0-2 /LPF (0-2); RBC Urine 0-2 /HPF (0-2); WBC Urine 0-5 /HPF (0-5)
[2024-06-17 12:55] LABS: Anion Gap 12 (12-20); Blood Urea Nitrogen 20 mg/dL (9-16); Calcium 9.6 mg/dL (8.4-10.2); Carbon Dioxide 31 mmol/L (22-29); Chloride 101 mmol/L (96-108); Estimated Glomerular Filt Rate > 60; Sodium 140 mmol/L (135-145)
[2024-06-17 13:07] LABS: Creatinine Urine 61.59 mg/dL; Total Protein Urine Random 15 mg/dL (<12)
[2024-06-17 13:30] LABS: Glucose Random 371 mg/dL (60-115)
== END 2024-06-17 09:46 | disposition home or self-care (01) ==
LOC: HO.LAB 09:45
PROVIDERS: PCP Internal Medicine; Visit Provider Internal Medicine Hypertension Specialist
DX: I10 Essential (primary) hypertension (principal)
CPT/HCPCS: 36415; 80048; 81001; 82570; 84156; 99212

== ENCOUNTER 2024-06-17 09:45 | Outpatient (AMB) | payer MEDICAID, SELFPAY ==
[2024-06-17 09:51] VITALS: BP 172/90; PULSE 96; O2SAT 95; BMI 27.2
--- NOTE | 2024-06-17 09:51 | HO.NEPHOV ---
Vital Signs 06/17/24 09:51 06/17/24 10:01 Height 5 ft 2 in Weight 149 lb BMI 27.2 BP 172/90 H 148/82 H Blood Pressure Location Rt brachial Lt brachial Position Sitting Left Lateral Pulse 96 Pulse Source Pulse Oximeter Pulse Oximetry (%) 95 Oxygen Delivery Method Room Air Intake Visit Reasons: Hypertension/ Conf Reports Analysis Manager Required: No Accompanied by: Self / Same As Patient Allergies apple [Apple] Allergy (Severe, Verified 06/17/24 09:54) ANAPHYLAXIS avocado [Avocado] Allergy (Severe, Verified 06/17/24 09:54) ANAPHYLAXIS fexofenadine [From RALPH] Allergy (Severe, Verified 06/17/24 09:54) ANAPHYLAXIS peanut [Peanut] Allergy (Severe, Verified 06/17/24 09:54) ANAPHYLAXIS acetaminophen [Percocet] Allergy (Unknown, Verified 06/17/24 09:54) nausea and vomiting oxycodone [From PERCOCET] Adverse Reaction (Severe, Verified 06/17/24 09:54) NAUSEA, DIZZINESS, FALLS Medication List - Last Reconciled 06/17/24 by Xiang Eddy MD acetaminophen ER 650 mg PO PRN amlodipine 5 mg PO QAM amoxicillin-pot clavulanate 875-125 mg 1 tab PO Q12H 7 days amoxicillin-pot clavulanate 875-125 mg 1 tab PO BID PRN pnpcycmxik-ysegtdtwpplgj-ljzx 50-300-40 mg (Fioricet) 1 cap PO Q8H PRN rxtkzsvpnz-dckniyepnsfhm-smks 50-300-40 mg (Fioricet) 1 cap PO TID PRN cetirizine 10 mg PO QAM cholecalciferol (vitamin D3) 25 mcg PO QAM citalopram 10 mg PO QAM cyclobenzaprine 10 mg PO BID empagliflozin (Jardiance) 10 mg PO QAM famotidine 40 mg PO DAILY 30 days fluticasone propionate 50 mcg/actuation 2 sprays intranasal DAILY glipizide 10 mg PO BID hydrochlorothiazide 50 mg PO DAILY ibuprofen 600 mg PO Q6H PRN lisinopril 40 mg PO DAILY loperamide 2 mg PO PRN montelukast 10 mg PO DAILY 30 days pantoprazole 40 mg PO QAM pravastatin 20 mg PO DAILY quetiapine 100 mg PO BEDTIME sitagliptin phosphate (Januvia) 25 mg PO QAM sumatriptan succinate (Imitrex) 50 mg PO Q2H PRN temazepam 15 mg PO BEDTIME PRN topiramate 50 mg PO BID HPI Comments Details: Middle-aged woman with resistant hypertension here for follow-up. She has been compliant with her medications. No new issues today. 06/17/24 Overall doing well. Took meds late PFSH Medical History Allergic rhinitis Asthma-COPD overlap syndrome GERD (gastroesophageal reflux disease) COPD (chronic obstructive pulmonary disease) Female pelvic pain Well woman exam Hypertension Anxiety Diabetes Surgical History Hx of tonsillectomy Hx of tubal ligation Hx of section Family History Mother Diabetes HTN (hypertension) Social History Household Members: None Housing: Apartment Alcohol intake: current Alcohol intake frequency: holidays/special occasions only Patient Tobacco Use Status: Never used Tobacco Substance Use Type: Marijuana Current occupational status: disabled Sexual orientation: Straight/Heterosexual Gender identity: Female Physical Exam Vital Signs: Last Vital Signs Pulse 96 06/17/24 09:51 BP 172/90 H 06/17/24 09:51 Pulse Ox 95 06/17/24 09:51 Oxygen Delivery Method Room Air 06/17/24 09:51 BMI result Body Mass Index 27.2 Comfortable Neck supple no JVD. Lungs entry equal no rales. Heart S1-S2 heard no gallop or rub. Abdomen soft nontender. Neuro alert awake oriented. No asterixis. Extremities no edema. Results Reviewed Nephrology Results: Hgb 13.4 g/dl (12.0-16.0) 09/27/23 WBC 6.8 X10*3/uL (4.8-10.8) 09/27/23 Plt Count 236 X10*3/uL (160-400) 09/27/23 Sodium 141 mmol/L (135-145) 09/27/23 Potassium 3.7 mmol/L (3.3-5.1) 09/27/23 Chloride 103 mmol/L (96-108) 09/27/23 Carbon Dioxide 29 mmol/L (22-29) 09/27/23 BUN 12 mg/dL (9-16) 09/27/23 Creatinine 0.82 mg/dL (0.5-1.4) 09/27/23 Calcium 9.7 mg/dL (8.4-10.2) 09/27/23 Urine Creatinine 47.45 mg/dL 06/20/23 Assessment & Plan Assessment & Plan (1) Hypertension: Code(s): I10 - Essential (primary) hypertension Category: Medical Plan: 57-year-old woman with essential hypertension Blood pressure acceptable Initial reading was elevated 3rd reading was 142/80 Discussed low-salt diet. I would continue the current regimen. Renal function has been stable I ordered a set of serum electrolytes BUN creatinine today. No changes were made to her prescriptions today. Orders: Orders Total Protein Urine Random 6 Months I10 - Essential (primary) hypertension Creatinine Urine 6 Months I10 - Essential (primary) hypertension Basic Metabolic Panel 6 Months I10 - Essential (primary) hypertension Basic Metabolic Panel Today I10 - Essential (primary) hypertension Coding Level of Care Code Est Pt Level 4 (62808) Diagnoses Hypertension I10
[2024-06-17 10:01] VITALS: BP 148/82
== END 2024-06-17 10:06 | disposition home or self-care (01) ==
PROVIDERS: PCP Internal Medicine; Visit Provider Internal Medicine Hypertension Specialist
DX: I10 Essential (primary) hypertension (principal)
CPT/HCPCS: 99214

== ENCOUNTER 2024-09-03 13:59 | Outpatient (REF) | payer MEDICAID, SELFPAY ==
--- NOTE | ~2024-09-03 | XR_ITS ---
EXAMINATION: XR CHEST 2 VIEWS HISTORY: cough COMPARISON: Comparison is made with the prior examination dated 01/25/2023. FINDINGS: PA and lateral views of the chest are submitted. The lungs are expanded and clear. There is no pleural effusion, pneumothorax, or pulmonary vascular congestion. The heart is normal in size. There is degenerative disc disease of the spine. XR/XR chest 2V IMPRESSION: No acute cardiopulmonary abnormality. Electronically signed by: Carlos Bustillos MD 09/03/2024 02:35 PM EDT
--- OUTSIDE RECORDS SUMMARY | 2024-09-03 17:26 | XMS_ITS | Encounter Summary ---
Author Organization [employer] Address [address] [place] [address] Care Team Providers Care Flat Clothier Name Role Phone Karon Powell MD Primary Care Provide r Reason for Visit * Reason Onset Date Comments Med Refill 08/16/2022 Encounter Details Date Type Department Care Team ([facility] st Contact Info) Description 08/16/2022 Telephone [facility] [address] [place] [address] Karon Powell MD [address] [place] [address] Med Refill Social History Tobacco Use Types Packs/Day Years Used Date Smoking Tobacco: Former Cigarettes Comments:She smokes cannabis at bedtime Comments Unknown Sex and Gender Information Value Date Recorded Sex Assigned at Female 04/11/2022 10:31 AM EDT Legal Sex Female 10:31 AM EDT Gender Identity Female 04/11/2022 10:31 AM EDT Sexual Orientation Straight 04/11/2022 10 :31 AM EDT COVID-19 Exposure Response Date Recorded In the last 10 days, have yo u been in contact with someone who was confirmed or suspected to have Coronavirus/COVID-19? No / Unsure 08/03/2022 2:41 PM EST documented as of this encounter Miscellaneous Notes * Telephone Encounter - Gracy Ndiaye LPN - 08/16/2022 4:02 PM EST Per [facility] Topamax 25mg and Sumatritan 50mg are prescribed by Dr. Aleman * Telephone Encounter - Hernando Henderson Geiger - 08/16/2022 3:36 PM EST Tc from pt requesting a med refill for topiramate (Topamax) 25 MG tablet SUMAtriptan (Imitrex) 50 MG tablet Please sent to [facility] - [place] - [address] Please contact pt at [phone] documented in this encounter Plan of Treatment Upcoming Encounters Date Type Department Care Team ([facility] st Contact Info) Description 12/09/2024 2:00 PM EDT Office Visit [facility]OM[facility] [address] [place] [address] Evita Magaña, OD [address] [place] [address] documented as of this encounter Visit Diagnoses Not on filedocumented in this encounter Care Teams Flat Clothier Relationship Specialty Start Date End Date Karon Powell MD [address] [place] [address] PCP - General Family Medicine 09/10/18 documented as of this encounter
--- OUTSIDE RECORDS SUMMARY | 2024-09-03 17:26 | XMS_ITS | Clinical Summary ---
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 Name Role Phone Karon oPwell MD Primary Care Provide r Allergies Active Allergy Reactions Criticality Noted Date Comments Acetaminophen Nausea And Vomiting High 09/13/2016 Other reaction(s): collapse Apple Juice Anaphylaxis High 08/05/2023 Avocado Anaphylaxis High 08/05/2023 Fexofenadine Anaphylaxis High 09/13/2016 Other reaction(s): itching Naproxen Unknown 08/05/2023 Oxycodone High 09/13/2016 Other reaction(s): collapse Other Reaction(s): NAUSEA, DIZZINESS, FALLS Oxycodone-Acetaminophen 06/14/2021 Peanut-Containing Drug Products Anaphylaxis High 08/05/2023 [place] Extract 06/20/2024 Medications * This document contains information received from the source organization and may not represent a complete record from that organization. Fluticasone-Jed meterol (Advair Diskus) 500-50 MCG/ACT aerosol powder Inhale 1 puff every 12 (twelve) hours. Active glucose blood (FREESTYLE LITE) test strip every 8 (eight) hours. 12/22/19 21 Active meclizine (Antivert) 25 MG tablet Take 1 tablet by mouth if needed in the morning, at noon, and at bedtime. 01/06/20 22 Active ondansetron (Zofran) 4 MG tablet Take 1 tablet by mouth every 8 (eight) hours. 01/07/20 22 Active raNITIdine (Zantac) 150 MG tablet Take 150 mg by mouth in the morning and at bedtime. Active triamcinolone (Kenalog) 0.1 % ointment Apply topically every 12 (twelve) hours. 09/16/19 21 Active DULoxetine (Cymbalta) [address] capsule TAKE 1 CAPSULE BY ORAL ROUTE EVERY DAY 06/10/20 21 Active QUEtiapine (SEROquel) 50 MG tablet Take 1 tablet by mouth. Active tiotropium (Spiriva) [address] 1 capsule into inhaler and inhale. 02/17/20 22 Active loperamide (Imodium A-D) 2 MG tabletIndicatio ns:Chronic diarrhea Take 2 tablets (4 mg) by mouth if needed for diarrhea. 30 tablet 1 12/21/19 23 Active topiramate 50 MG tabletIndicatio ns:Intractable migraine without aura and without status migrainosus Take 50 mg by mouth 2 times daily. 180 tablet 3 01/13/20 23 Active pravastatin (Pravachol) 20 MG tabletIndicatio ns:Dyslipidemia Take 1 tablet by mouth daily 90 tablet 3 06/22/19 24 Active pantoprazole (ProtoNix) 40 MG EC tabletIndicatio ns:Epigastric pain Take 1 tablet (40 mg) by mouth before breakfast. 90 tablet 3 06/22/19 24 Active cetirizine (ZyrTEC) 10 MG tablet Take 1 tablet (10 mg) by mouth in the morning. 30 tablet 11 08/07/19 24 Active ketotifen (Zaditor) 0.025 % ophthalmic solution One drop to eyes bid prn allergies 5 mL 1 08/07/19 24 Active amoxicillin-cla vulanate (Augmentin) 875-125 MG tablet Take 1 tablet by mouth 2 times daily. 08/05/19 24 Active citalopram (CeleXA) 10 MG tablet Take 10 mg by mouth in the morning. Active QUEtiapine (SEROquel) 100 MG tablet Take 100 mg by mouth at bedtime. 09/27/19 24 Active temazepam (Restoril) 15 MG capsule Take 15 mg by mouth at bedtime. 09/27/19 24 Active butalbital-acet aminophen-caffe ine (Fioricet) 50-300-40 MG capsuleIndicati ons:Intractable migraine without aura and without status migrainosus Take 1 capsule by mouth every 8 (eight) hours if needed for headaches. 9 capsule 1 12/27/19 24 Active Januvia 25 MG tabletIndicatio ns:Type 2 diabetes mellitus with hyperglycemia, without long-term current use of insulin (CMS/HCC) TAKE 1 TABLET BY MOUTH EVERY MORNING 30 tablet 5 03/21/20 24 Active empagliflozin (Jardiance) 25 MGIndications:T ype 2 diabetes mellitus with hyperglycemia, without long-term current use of insulin (CMS/HCC) Take 1 tablet (25 mg) by mouth Once per day. 30 tablet 11 03/28/20 24 2024 Active amLODIPine (Norvasc) 5 MG tabletIndicatio ns:Essential hypertension Take 1 tablet (5 mg) by mouth Once per day. 90 tablet 1 03/28/20 24 2024 Active glipiZIDE (Glucotrol) 10 MG tabletIndicatio ns:Type 2 diabetes mellitus with hyperglycemia, without long-term current use of insulin (CMS/HCC) Take 1 tablet (10 mg) by mouth before breakfast and before evening meal. 180 tablet 3 03/28/20 24 Active hydroCHLOROthia zide (HYDRODiuril) 50 MG tabletIndicatio ns:Essential hypertension Take 1 tablet (50 mg) by mouth Once per day. 90 tablet 03/28/20 24 Active lisinopril 40 MG tabletIndicatio ns:Essential hypertension Take 1 tablet (40 mg) by mouth Once per day. 90 tablet 2 03/28/20 24 Active clobetasol (Temovate) 0.05 % gelIndications: Dyshidrotic dermatitis Apply 1 Application. topically 2 times daily. Apply as needed when rash appears on hand 30 g 1 04/12/20 24 Active cholecalciferol (Vitamin D-3) 25 MCG tabletIndicatio ns:Chronic pain of right knee TAKE 1 TABLET BY MOUTH EVERY MORNING 90 tablet 1 05/21/20 24 Active cyclobenzaprine (Flexeril) 10 MG tabletIndicatio ns:Chronic right shoulder pain Take 1 tablet (10 mg) by mouth if needed in the morning, at noon, and at bedtime for muscle spasms for up to 10 days. 30 tablet 05/24/20 24 Active Diclofenac Sodium 1 % gelIndications: Chronic pain of right knee APPLY TO AFFECTED AREA 3 TIMES A DAY NEEDED FOR PAIN 100 g 05/24/20 24 Active lidocaine (Lidoderm) 5 % patch Apply 1 patch topically Once per day. Remove & discard patch within 12 hours or as directed by MD. 30 patch 1 05/24/20 24 Active guaiFENesin (Robitussin) 100 MG/5ML liquidIndicatio ns:Mild intermittent asthma with acute exacerbation Take 10 mL (200 mg) by mouth if needed in the morning, at noon, and at bedtime for cough for up to 10 days. 120 mL 09/04/19 25 2024 Active azithromycin (Zithromax Z-Uriah) 250 MG tabletIndicatio ns:Mild intermittent asthma with acute exacerbation Take 2 tabs po x 1 day then 1 tab po daily x 4 days 6 tablet 09/04/19 Active predniSONE (Deltasone) 20 MG tabletIndicatio ns:Asthma Take 3 tablets (60 mg) by mouth Once per day for 3 days, THEN 2 tablets (40 mg) Once per day for 3 days, THEN 1 tablet (20 mg) Once per day for 2 days, THEN 0.5 tablets (10 mg) Once per day for 2 days. 18 tablet 09/04/19 25 2024 Active albuterol (2.5 MG/3ML) 0.083% nebulizer solutionIndicat ions:Mild intermittent asthma with acute exacerbation Take 3 mL (2.5 mg) by nebulization every 6 (six) hours if needed for wheezing. 75 mL 1 09/04/19 Active albuterol (ProAir HFA) 108 (90 Base) MCG/ACT inhalerIndicati ons:Mild intermittent asthma with acute exacerbation Inhale 2 puffs every 4 (four) hours. 18 g 1 09/04/19 Active albuterol (2.5 MG/3ML) 0.083% nebulizer solution Inhale 2.5 mg every 6 (six) hours if needed. 2024 Discontinued albuterol (2.5 MG/3ML) 0.083% nebulizer solution Inhale 3 mL every 8 (eight) hours. 11/17/19 22 2024 Discontinued albuterol (ProAir HFA) 108 (90 Base) MCG/ACT inhaler Inhale 2 puffs every 4 (four) hours. 09/14/19 22 2024 Discontinued Hospital, Clinic, or Other Facility Administered Medication Ordered Dose Route Frequency Start Date End Date Status albuterol (2.5 MG/3ML) 0.083% nebulizer solution 2.5 mgIndications:Mild intermittent asthma with acute exacerbation 2.5 mg NEBULIZATION Once 09/03/2024 09/03/2024 Ended Active Problems Problem Noted Date Diagnosed Date Mild intermittent asthma with acute exacerbation 09/03/2024 Assessment & Plan (09/03/2024 1:16 PM EDT): Pt with a Hx of asthma. Here with c/o wheezing, and cough productive of phlegm On exam extensive wheezing Rapid Flu and Covid negative Plan: Albuterol nebulization, Prednisone taper, Z-pack Chest x-ray F/u if worsening or no improvement Viral gastroenteritis 06/20/2024 Assessment & Plan (06/20/2024 2:56 PM EST): Drink plenty of liquids small sips at a time and rest Zofran and imodium for symptoms I advise it is likely its extremely contagious I advise frequent hand wash with water and soap and do not share cups/utensils Patient will be re-schedule for chronic conditions management Dermatitis 12/27/2023 Forgetfulness 09/27/2023 Assessment & Plan (09/27/2023 12:04 PM EDT): Likely related to her depression, blood work ordered to r/o other reversible causes Chronic fatigue 09/27/2023 Assessment & Plan (09/27/2023 12:03 PM EDT): Likely related to her depression, blood work ordered to r/o other organic etiology Trapezius muscle spasm 08/25/2023 Chronic right shoulder pain 06/22/2023 Chronic pain of right knee 06/22/2023 Mixed anxiety and depressive disorder 06/22/2023 Assessment & Plan (09/27/2023 12:04 PM EDT): C/w therapist C/w current medications On waiting list for psychiatrist Assessment & Plan (06/27/2023 2:53 PM EST): During IBH Consult Nicole presenting with depressed mood, loss of interests/pleasure , changes in sleep difficulty falling asleep, trouble concentrating, thoughts of worthlessness or guilt, hopelessness and excessive worry/anxiety, difficulty controlling worry, restless/keyed up/On edge, easily fatigued, difficulty concentrating/Mind going blank , irritability, and muscle tension; for a period of 18+ mo, for all symptoms in the context of illness or family illness and housing. Unsafe housing living situation, acute stress, medical condition (chronic pain) and lack of support increase intensity and frequency of symptoms. PLAN: (check all that apply) New/Additional Services needed PCP management Off-site services for BH. OP referral will be placed for MH services. Nicole was advised to return phone calls and re-engage with MH services with [facility] in [place]. Phone number provided as well for BHN/intake coordination for same-day appointments. Assessment & Plan (06/22/2023 4:06 PM EST): I called N today Patient to be connected with services (therapist and hopefully a psychiatrist) Housing problems 06/22/2023 Assessment & Plan (06/27/2023 2:53 PM EST): During IBH Consult Nicole presenting with depressed mood, loss of interests/pleasure , changes in sleep difficulty falling asleep, trouble concentrating, thoughts of worthlessness or guilt, hopelessness and excessive worry/anxiety, difficulty controlling worry, restless/keyed up/On edge, easily fatigued, difficulty concentrating/Mind going blank , irritability, and muscle tension; for a period of 18+ mo, for all symptoms in the context of illness or family illness and housing. Unsafe housing living situation, acute stress, medical condition (chronic pain) and lack of support increase intensity and frequency of symptoms. PLAN: (check all that apply) New/Additional Services needed PCP management Off-site services for BH. OP referral will be placed for MH services. Nicole was advised to return phone calls and re-engage with MH services with [facility] in [place]. Phone number provided as well for BHN/intake coordination for same-day appointments. Anxiety disorder, unspecified 01/13/2023 Assessment & Plan (01/13/2023 11:46 AM EDT): Assessment and Plan: Nicole was engaged with active reflective listening and open-ended questions. Assessed symptoms, risks, and social supports with direct questions. Discussed current symptoms intensity and frequency. Emotions were normalized and validated. She identified riding bike as coping mechanisms but has not been able to do it due to her pain. Provided psychoeducation around relaxation techniques. Discussed OP therapy she reported she has a therapist and a Psychiatrist at [facility] in [place]. Provided education around integrated medicine and the options of follow up BE's as needed. Provided contact information should questions or concerns arise. Plan: Nicole will keep her WC appt to get seen and get treatment. She will also keep her appt with therapist and Psychiatrist. She will use relaxation techniques to manage sxs. At this time Nicole Ware meets criteria for Visit Diagnoses: Problem List Items Addressed This Visit Other Anxiety disorder, unspecified Patient ready to address current needs already engage in services Strengths include she can advocate for herself PLAN: 1. Follow up with [facility]: Not recommended for follow-up 2. Patient goal is to get pain treatment 3. Behavioral Recommendations a. Keep Ind. Therapy appts b. Keep Psychiatrist appt c. Use coping skills Cervical paraspinal muscle spasm 01/13/2023 Assessment & Plan (01/13/2023 1:51 PM EDT): Rx Flexeril up to tid, caution with dizziness, dry mouth or constipation. Patient to take it for 1-2 w max. Can repeat Few weeks later If needed, FU PCP. Apply heat to affected area. Encouraged to keep appts with PCP. Counseled to fu closely with MH provider as anxiety may increase pain Concussion with no loss of consciousness 022 Epigastric pain 05/20/2022 Injury of kidney 05/20/2022 Whiplash injury to neck 05/20/2022 Neck sprain 05/20/2022 Chronic kidney disease 06/14/2021 Migraine without aura 11/16/2018 Assessment & Plan (12/27/2023 4:34 PM EDT): I advise to avoid migraine triggers like red wine, chocolate, cheese, strong perfumes I will prescribe Fioricet and discontinue sumatriptan C/w topiramate 50mg at bed time Blurring of visual image 06/07/2018 Fibromyalgia 06/07/2018 Type 2 diabetes mellitus wit h hyperglycemia, without long-term current use of insulin 06/07/2018 Assessment & Plan (03/28/2024 4:16 PM EDT): Diabetes is: not controlled - Lab Results Component Value Date HGBA1C 9.4 (A) 03/28/2024 HGBA1C 7.8 (A) 12/27/2023 HGBA1C 7.6 (A) 09/27/2023 - Lab Results Component Value Date MICROALBUR 0.5 02/22/2022 CREATININE 0.82 09/27/2023 -Changes: c/w glipizide 10mg BID, I increase jardiance to 25mg daily, diet counseling done - Diabetic eye exam:up to date - Diabetic foot exam:pending - Continue lifestyle modifications - Continue current medications - Follow up: 3 months Assessment & Plan (12/27/2023 4:27 PM EDT): Diabetes is: almost at goal - Lab Results Component Value Date HGBA1C 7.8 (A) 12/27/2023 HGBA1C 7.6 (A) 09/27/2023 HGBA1C 10.4 (A) 06/22/2023 - Lab Results Component Value Date MICROALBUR 0.5 02/22/2022 CREATININE 0.82 09/27/2023 -Changes: none - Diabetic eye exam:up to date - Diabetic foot exam:pending - Continue lifestyle modifications - Continue current medications - Follow up: 3 months Assessment & Plan (09/27/2023 12:02 PM EDT): Diabetes is: almost at goal - Lab Results Component Value Date HGBA1C 7.6 (A) 09/27/2023 HGBA1C 10.4 (A) 06/22/2023 HGBA1C 8.2 (A) 09/29/2022 - Lab Results Component Value Date MICROALBUR 0.5 02/22/2022 CREATININE 0.85 06/20/2023 -Changes: none - Diabetic eye exam:up to date - Diabetic foot exam:pending - Continue lifestyle modifications - Continue current medications - Follow up: 3 months Assessment & Plan (08/28/2023 2:31 PM EDT): Diabetes is: not controlled - Lab Results Component Value Date HGBA1C 10.4 (A) 06/22/2023 HGBA1C 8.2 (A) 09/29/2022 HGBA1C 7.4 (A) 01/05/2022 - Lab Results Component Value Date MICROALBUR 0.5 02/22/2022 CREATININE 0.85 06/20/2023 -Changes: medication where adjusted on previous appointment, counseling done again today - Diabetic eye exam:up to date - Diabetic foot exam:pending - Continue lifestyle modifications - Continue current medications - Follow up: 3 months Assessment & Plan (06/22/2023 4:05 PM EST): - Lab Results Component Value Date HGBA1C 10.4 (A) 06/22/2023 HGBA1C 8.2 (A) 09/29/2022 HGBA1C 7.4 (A) 01/05/2022 - Lab Results Component Value Date MICROALBUR 0.5 02/22/2022 CREATININE 0.85 06/20/2023 - Continue lifestyle modifications - Continue current medications, extensive counseling done about taking her medications every day and being adherent to diabetic diet Assessment & Plan (09/29/2022 3:12 PM EDT): a1c today 8.2 glucose 272 Lab Results Component Value Date HGBA1C 7.4 (A) 01/05/2022 HGBA1C 7.4 (H) 06/16/2020 HGBA1C 7.5 (H) 01/02/2020 HGBA1C 7.5 (H) 01/02/2020 - Lab Results Component Value Date MICROALBUR 0.5 02/22/2022 CREATININE 0.77 01/12/2022 - Diabetic eye exam: up to date - Diabetic foot exam: doen today - Continue lifestyle modifications -I refilled januvia an I added today jardiance 10mg daily Vitamin D deficiency 12/25/2017 Chronic obstructive lung disease 10/25/2017 Dental caries 10/25/2017 Dyslipidemia 10/25/2017 Essential hypertension 10/25/2017 Assessment & Plan (06/20/2024 2:57 PM EST): Today elevated, patient was vomiting at the time of this visit, I advise to monitor her BP at home and to take her medications after she takes her nausea medication Assessment & Plan (03/28/2024 4:14 PM EDT): - Aerobic exercise to reduce BP. Initial goal of 30 min walk 3-5x/week. Increase as tolerated. - low-sodium diet (goal: <2g/day) and heart healthy diet such as DASH to reduce BP and prevent ASCVD. - Home BP monitoring 1-2 x day with goal of <140/90. - Seek immediate medical attention for chest pain, palpitations, SOB, syncope, or sudden changes in mental status. - Do not change or discontinue current prescriptions without first consulting health care provider Assessment & Plan (12/27/2023 4:26 PM EDT): - Aerobic exercise to reduce BP. Initial goal of 30 min walk 3-5x/week. Increase as tolerated. - low-sodium diet (goal: <2g/day) and heart healthy diet such as DASH to reduce BP and prevent ASCVD. - Home BP monitoring 1-2 x day with goal of <140/90. - Seek immediate medical attention for chest pain, palpitations, SOB, syncope, or sudden changes in mental status. - Do not change or discontinue current prescriptions without first consulting health care provider Assessment & Plan (09/27/2023 12:02 PM EDT): Maintenance: BMP: ordered today Lipid Panel: ordered today ASCVD Risk: on pravastatin 20mg daily - Aerobic exercise to reduce BP. Initial goal of 30 min walk 3-5x/week. Increase as tolerated. - low-sodium diet (goal: <2g/day) and heart healthy diet such as DASH to reduce BP and prevent ASCVD. - Home BP monitoring 1-2 x day with goal of <140/90. - Seek immediate medical attention for chest pain, palpitations, SOB, syncope, or sudden changes in mental status. - Do not change or discontinue current prescriptions without first consulting health care provider Assessment & Plan (08/28/2023 2:33 PM EDT): -Patient did not took her medication today I advise not to miss any dose - Aerobic exercise to reduce BP. Initial goal of 30 min walk 3-5x/week. Increase as tolerated. - low-sodium diet (goal: <2g/day) and heart healthy diet such as DASH to reduce BP and prevent ASCVD. - Home BP monitoring 1-2 x day with goal of <140/90. - Seek immediate medical attention for chest pain, palpitations, SOB, syncope, or sudden changes in mental status. - Do not change or discontinue current prescriptions without first consulting health care provider Assessment & Plan (06/22/2023 4:04 PM EST): Patient with high BP today she is clinically asymptomatic no headache, chest pain, palpitations, weakness, chaneges in speech or gait, I did extensive counseling about taking her blood pressure medication every day without missing any dose I advise low Na diet Assessment & Plan (09/29/2022 3:12 PM EDT): Maintenance: BMP: ordered today Lipid Panel: ordered today ASCVD Risk: Calculate pending updated labs - Aerobic exercise to reduce BP. Initial goal of 30 min walk 3-5x/week. Increase as tolerated. - low-sodium diet (goal: <2g/day) and heart healthy diet such as DASH to reduce BP and prevent ASCVD. - Home BP monitoring 1-2 x day with goal of <140/90. - Seek immediate medical attention for chest pain, palpitations, SOB, syncope, or sudden changes in mental status. - I increase her amlodipine to 5mg daily RTC 2 weeks with nurse - Do not change or discontinue current prescriptions without first consulting health care provider History of appendectomy 10/25/2017 Lateral displacement of eye 10/25/2017 Marijuana use 10/25/2017 Mood disorder 10/25/2017 Encounters Date Type Department Care Team Description 09/03/2024 1:20 PM EDT Office Visit [facility] WALK-IN [address] [address] Milo Rosales MD Mild intermittent asthma with acute exacerbation (Primary Dx) 08/23/2024 Population Health Risk Score [facility] ([facility]) Department [address] [phone] Provider, Population Health Generic 06/20/2024 1:00 PM EST Office Visit [facility] MEDICINE [address] [place] [address] Karon Powell MD Viral gastroenteritis (Primary Dx); Essential hypertension 06/20/2024 Travel 06/19/2024 Telephone [facility] [address] [place] [address] Stormy Rankin MA CHART PREP 06/17/2024 Orders Only GENERIC EXTERNAL DATA DEPARTMENT Provider, Generic External Data 06/13/2024 Patient Outreach [facility] [address] [place] [address] Karon Powell MD Pre-visit Planning ((Unable to reach for PVP screening, LVM)) from Last 3 Months Immunizations Name Administration Dates Next Due Influenza injectable quadrivalent preservative f ree 04/08/2020 Moderna Covid-19 Vaccine 12+ 11/30/2020,10/31/19 21 Pneumococcal Polysaccharide PPSV23 11/16/2018 Tdap 02/08/2021 Family History Medical History Relation Name Comments Asthma Other Diabetes Other Hypertension Other Relation Name Status Comments Other Social History Tobacco Use Types Packs/Day Years Used Date Smoking Tobacco: Former Cigarettes Passive Smoke Exposure: Past Smokeless Tobacco: Former Tobacco Cessation:Counseling Given: Not Answered Comments:She smokes cannabis at bedtime Alcohol Use Standard Drinks/Week Comments Never 0 (1 standard drink = 0.6 oz pur e alcohol) Depression Answer Date Recorded Patient Health Questionnaire-9 Score 0 12/27/2023 Patient Health Questionnaire-9 Score 0 12/27/2023 Last PHQ-9: Questionnaire Data Not on file 0 12/27/2023 Housing Stability Answer Date Recorded What is your housing situation today? I have sean de [place] 12/27/[address] you li ve. Do you have problems with any of the following? None of the above 12/27/2023 Food Insecurity Answer Date Recorded Within the past 12 months, y ou worried that your food would run out before you got money to buy more: Never True 04/10/2023 Within the past 12 months,th e food you bought just didn't last and you didn't have enough money to get more: Never True Transportation Answer Date Recorded In the past 12 months, has l ack of transportation kept you from medical appts, meetings, work or from getting things needed for daily living? No 06/22/2023 Utilities Answer Date Recorded In the past 12 months, has t he electric, gas, oil or water company threatened to shut off services in your home? No 04/10/2023 Depression Answer Date Recorded Patient Health Questionnaire-2 Score 0 12/27/2023 Internet Access Answer Date Recorded Internet Access Q1 No 02/12/2024 Internet Access Q2 I do not want or need it 07/2023 Comments Unknown Sex and Gender Information Value Date Recorded Sex Assigned at Female 04/11/2022 10:31 AM EDT Legal Sex Female 10:31 AM EDT Gender Identity Female 04/11/2022 10:31 AM EDT Sexual Orientation Straight 04/11/2022 10 :31 AM EDT Last Filed Vital Signs Vital Sign Reading Time Taken Comments Blood Pressure 154/106 09/03/2024 12:59 PM EDT Pulse 81 09/03/2024 12:54 PM EDT Temperature 36.9 ??C (98.5 ??F) 09/03/2024 1 2:54 PM EDT Respiratory Rate 18 09/03/2024 12:5 4 PM EDT Oxygen Saturation 97% 09/03/2024 12: 54 PM EDT Inhaled Oxygen Concentration - - Weight 67.5 kg (148 lb 12.8 oz) 025 12:54 PM EDT Height 157.5 cm (5' 2 ) 09/03/2024 12:5 4 PM EDT Body Mass Index 27.22 09/03/2024 12:54 PM EDT Plan of Treatment Upcoming Encounters Date Type Department Care Team (Late st Contact Info) Description 12/09/2024 2:00 PM EDT Office Visit [facility] OPTOMETRY [address] [place] [address] Gómez, Evita, OD [address] [place], [place] [id number] Health Maintenance Due Date Last Done Comments CT Colonography 1963 FIT DNA/Cologuard 1963 FIT 1963 FOBT 1963 HIV Screening 1963 Sigmoidoscopy 1963 Diabetes: Foot Exam 1973 Hepatitis C Screening 1981 Zoster Vaccines (1 of 2) 2013 Pneumococcal Vaccine: 50+ Years (2 of 2 - PCV) 11/17/2019 11/16/2018 RSV Patients and Patients Aged 60 years or older (1 - Risk 60-74 years 1-dose series) 2023 COVID-19 Vaccine ( season) 2024 11/30/2020, 10/30/2020 Influenza Vaccine (#1) 2024 04/08/2020 Diabetes: Hemoglobin A1C 06/28/2024 024, 12/27/2023, 09/27/2023, Additional history exists Lipid Panel 09/26/2024 09/27/2023, 02/10, 01/20/2021, Additional history exists Depression Screening 12/26/2024 12/27/2023, 12/27/19 24 SDOH Screening 12/26/2024 12/27/2023 Mammogram 02/12/2025 02/13/2024, 01/11, 11/30/2021, Additional history exists Alcohol/Substance Use Screening 03/28/2025 03/28/2024 Diabetes: Urine Protein Screening 06/17/2025 06/17/2024, 06/20/2023, 02/22/2022, Additional history exists Colonoscopy 06/19/2025 06/19/2018 Colorectal Cancer Screening 06/19/2025 Tobacco Screening 06/20/2025 06/20/2024 Eye Exam 08/15/2025 08/16/2023, 03/0 11/2023, 08/16/2023, Additional history exists Cervical Cancer Screening 01/04/2027 HPV/Cotest 01/04/2027 01/04/2022, 01/04/2022 Pap Smear 01/04/2027 01/04/2022, 06/17/2015 DTaP/Tdap/Td Vaccines (2 - Td or Tdap) 02/08/2031 02/08/2021 HIB Vaccines Aged Out No longer eligi ble based on patient's age to complete this topic HPV Vaccines Aged Out No longer eligi ble based on patient's age to complete this topic Hepatitis A Vaccines Aged Out No long er eligible based on patient's age to complete this topic Hepatitis B Vaccines Aged Out No long er eligible based on patient's age to complete this topic IPV Vaccines Aged Out No longer eligi ble based on patient's age to complete this topic Meningococcal Vaccine Aged Out No scotty mikel eligible based on patient's age to complete this topic RSV under 20 months Aged Out No longe r eligible based on patient's age to complete this topic Rotavirus Vaccines Aged Out No longer eligible based on patient's age to complete this topic Procedures Procedure Name Priority Date/Time Associated Diagnosis Comments XR CHEST 2 VIEWS Routine 09/03/2024 1:59 PM EDT Mild intermittent asthma with acute exacerbation POCT INFLUENZA B (ID NOW RAPID MOLECULAR) Routine 09/03/2024 1:15 PM EDT Mild intermittent asthma with acute exacerbation POCT INFLUENZA A (ID NOW RAPID MOLECULAR) Routine 09/03/2024 1:15 PM EDT Mild intermittent asthma with acute exacerbation POCT RAPID COVID ANTIGEN Routine 09/03/2024 1:15 PM EDT Mild intermittent asthma with acute exacerbation POCT INFLUENZA A (ID NOW RAPID MOLECULAR) Routine 06/20/2024 1:50 PM EST Viral gastroenteritis POCT INFLUENZA B (ID NOW RAPID MOLECULAR) Routine 06/20/2024 1:50 PM EST Viral gastroenteritis POCT COVID-19 AG KRAMER ID NOW Routine 06/20/2024 1:49 PM EST Viral gastroenteritis BASIC METABOLIC PANEL Routine 06/17/2024 10:39 AM EST URINE PROTEIN, TOTAL, RANDOM (W/O CREATININE) Routine 06/17/2024 10:35 AM EST CREATININE, RANDOM URINE Routine 06/17/2024 10:35 AM EST URINALYSIS, COMPLETE Routine 06/17/2024 10:35 AM EST POCT GLYCATED HEMOGLOBIN, TOTAL Routine 03/28/2024 2:29 PM EDT Type 2 diabetes mellitus with hyperglycemia, without long-term current use of insulin ([facility]) BI MAMMOGRAM SCREENING TOMOSYNTHESIS BILATERAL Routine 02/13/2024 2:15 PM EDT LIPID PANEL, STANDARD Routine 09/27/2023 12:17 PM EDT Forgetfulness Chronic fatigue ZZZ HISTORICAL HPV E6/E7 RFLX PJ 16 18/45 Routine 01/04/2022 3:19 PM EDT HM PAP/HPV Routine 01/04/2022 HM COLONOSCOPY Routine 06/19/2018 from Last 3 Months or Most Recently Relevant to Health Maintenance Results * XR Chest 2 Views (09/03/2024 1:59 PM EDT) Anatomical Region Laterality Modality Chest Radiographic Radha ging 09/03/2024 1:59 PM EDT Narrative 09/03/2024 2:37 PM EDT ?[facility] ?[address] ?[place] [address] ?XRay Report ? Signed ? Patient: Mendrez,Nicole ?MR#: [id number] ?? 259 ? : 1965 ?Acct:[id number] ? Age/Sex: 59 / F ?ADM Date: 03/25/25 ? Loc: HO.HHCX ? Attending Dr: Milo Martinez MD ? Ordering Physician: Milo Martinez MD ?? Date of Service: 09/03/24 ?? Procedure(s): XR chest 2V ?? Accession Number(s): [id number] ? cc: Milo Martinez MD ? EXAMINATION: ??XR CHEST 2 VIEWS ? HISTORY: cough ? COMPARISON: Comparison is made with the prior examination dated ?? 01/25/2023. ? FINDINGS: ??PA and lateral views of the chest are submitted. The lungs ?? are expanded and clear. ??There is no pleural effusion, pneumothorax, or ?? pulmonary vascular congestion. ??The heart is normal in size. ??There is ?? degenerative disc disease of the spine. ? XR/XR chest 2V ?? IMPRESSION: ?? No acute cardiopulmonary abnormality. ? Electronically signed by: ??Carlos Bustillos MD ??09/03/2024 02:35 PM EDT ? Dictated By: ?Carlos Bustillos MD ? Signed By: ?<Electronically signed by Carlos Bustillos MD in OV> ?09/03/24 1435 ? DD/ 1359 ? TD/TT: 09/03/24 1418 ? Associate Program Manager: ? Procedure Note Simone Couch - 09/03/[address] [address] XRay Report Signed Patient: Esther Ware#: [id number] 259 : 1965Acct:[id number] Age/Sex: 59 / FADM Date: 09/03/24 Loc: HO.HHCX Attending Dr: Milo Martinez MD Ordering Physician: Milo Martinez MD Date of Service: 09/03/24 Procedure(s): XR chest 2V Accession Number(s): [id number] cc: Milo Martinez MD EXAMINATION: XR CHEST 2 VIEWS HISTORY: cough COMPARISON: Comparison is made with the prior examination dated 01/25/2023. FINDINGS: PA and lateral views of the chest are submitted. The lungs are expanded and clear. There is no pleural effusion, pneumothorax, or pulmonary vascular congestion. The heart is normal in size. There is degenerative disc disease of the spine. XR/XR chest 2V IMPRESSION: No acute cardiopulmonary abnormality. Electronically signed by: Carlos Bustillos MD 09/03/2024 02:35 PM EDT RP Dictated By: Carlos Bustillos MD Signed By: <Electronically signed by Carlos Bustillos MD in OV> 09/03/24 1435 DD/ 1359 TD/TT: 09/03/24 1418 Associate Program Manager: Milo Hagen MD IMG XR PROCEDURES Venu panchito Result - Final * Influenza B (ID NOW Rapid Molecular) (09/03/2024 1:15 PM EDT) Only the most recent of2 resultswithin the time period is included. [facility] Influenza B Negative Negative, Indeterminate [facility] Swab 09/03/2024 1:15 PM EDT Milo Hagen MD POINT OF CARE TEST EN TER/EDIT ORDERABLES Final Result Performing Organization Address City/[facility] [address]/ZIP Co de Phone Number [facility] [address] [place] [phone] * Influenza A (ID NOW Rapid Molecular) (09/03/2024 1:15 PM EDT) Only the most recent of2 resultswithin the time period is included. [facility] Influenza A Negative Negative, Indeterminate [facility] Swab 09/03/2024 1:15 PM EDT Milo Hagen MD POINT OF CARE TEST EN TER/EDIT ORDERABLES Final Result Performing Organization Address City/[facility] [address]/ZIP Co de Phone Number [facility] [address] [place] [phone] * POCT Rapid COVID Ag (09/03/2024 1:15 PM EDT) Rapid COVID Ag Negative [facility] Swab 09/03/2024 1:15 PM EDT us Milo Hagen MD POINT OF CARE TEST EN TER/EDIT ORDERABLES Final Result [facility] [address] [place] [address] [phone] * POCT Rapid Covid-19 KRAMER ID NOW (06/20/2024 1:49 PM EST) Pathologist [facility] Coronavirus Antigen PCR Negative Negative, Indeterminate, None Detected, Invalid, Specimen unsatisfactory for evaluation, Weakly Positive QC Media Lot # [id number] Lot# Expiration Date Swab 06/20/2024 1:49 PM EST us Karon Art MD POINT OF CARE TEST EN TER/EDIT ORDERABLES Final Result * (ABNORMAL) Basic Metabolic Panel (06/17/2024 10:39 AM EST) [facility] Sodium 140 135 - 145 mmol/L [facility] Potassium 4.0 3.3 - 5.1 mmol/L [facility] Chloride 101 96 - 108 mmol/L [facility] Carbon Dioxide 31(H) 22 - 29 mmol/L [facility] Anion Gap 12 12 - 20 [facility] Urea Nitrogen (BUN) 20(H) 9 - 16 mg/dL [facility] Creatinine, Serum 0.82 0.5 - 1.4 mg/dL [facility] Estimated Glomerular Filt Rate >60 [facility] Comment:Chronic Kidney Disea se: Estimated GFR < 60 mL/min/1.04s0Tbrxud Kidney Disease: Estimated GFR < 15 mL/min/1.73m2 Glucose 371(HH) 60 - 115 mg/dL [facility] Comment:Critical value for t est(s): GLUR Results called to jannette back by: ARELY Pereira Person calling: ABE Date:06/17/2024 Time:13:30 Calcium 9.6 8.4 - 10.2 mg/dL [facility] 06/17/2024 10:3 9 AM EST 06/17/2024 10:39 AM EST us Generic External Data Provider LAB BLOOD ORDERAB LES Final Result Performing Organization Address [facility] [address]/[facility] Co de Phone Number [facility] [address] [place] [phone] * (ABNORMAL) Urine Protein, Total, Random without Creatinine (06/17/2024 10:35 AM EST) Protein, Total, Random Urine 15(H) <12 mg/dL [facility] 06/17/2024 10:3 5 AM EST 06/17/2024 12:11 PM EST us Generic External Data Provider LAB URINE ORDERAB LES Final Result Performing Organization Address [facility] Phone Number [facility] [address] [place] [phone] * Creatinine, Random Urine (06/17/2024 10:35 AM EST) Creatinine, Urine 61.59 mg/dL [facility] 06/17/2024 10:3 5 AM EST 06/17/2024 12:11 PM EST us Generic External Data Provider LAB URINE ORDERAB LES Final Result Performing Organization Address [facility] de Phone Number [facility] [address] [place] [phone] * (ABNORMAL) Urinalysis Complete (06/17/2024 10:35 AM EST) Color Urine Yellow [facility] Appearance Urine Clear [facility] PH 6.0 5.0 - 9.0 [facility] Glucose Urine UA >=1000(A) Negative mg/dL [facility] Urine Blood Negative Negative [facility] Specific [place] - Urine >=1.030(H) 1.005 - 1.025 [facility] Urine Protein Trace Neg-Trace mg/dL [facility] Urine Ketones Trace Negative mg/dL [facility] Nitrite Urine Negative Negative [facility] Leukocyte Esterase Urine Negative Negative [facility] RBC Urine 0-2 0 - 2 /HPF [facility] Urine WBC 0-5 0 - 5 /HPF [facility] Urine Squamous Epithelial Cell 6-10 0 - 2 /HPF [facility] Urine Bacteria 1+ None Seen [facility] Hyaline Casts, Urine 0-2 0 - 2 /LPF [facility] 06/17/2024 10:3 5 AM EST 06/17/2024 12:11 PM EST Generic External Data Provider LAB URINE ORDERAB LES Final Result Performing Organization Address City/State/[facility] Co de Phone Number [facility] [address] [place] [phone] * (ABNORMAL) POCT HGB A1C (03/28/2024 2:29 PM EDT) Hemoglobin A1C 9.4(A) 4.0 - 6.0 % QC Media Lot # [id number] Lot# Expiration Date [id number] Blood 03/28/2024 2:29 PM EDT Karon Art MD POINT OF CARE TEST EN TER/EDIT ORDERABLES Final Result * BI Mammogram Screening Tomosynthesis Bilateral (02/13/2024 2:15 PM EDT) Anatomical Region Laterality Modality Breast Bilateral Mammography 02/13/2024 2:15 PM EDT Narrative 03/03/2024 9:17 AM EDT ? [facility] ? [address] ?[place] [address] ? Mammography Report ? Signed ? Patient: Mendrez,Nicole ?MR#: [id number] ?? 259 ? : 1965 ?Acct:[id number] ? Age/Sex: 58 / F ?ADM Date: 09/03/24 ? Loc: HO.MAMMO ? Attending Dr: Karon Art MD ? Ordering Physician: Karon Powell MD ?Results: ?? 1Negative ? Date of Service: 02/13/24 ?Follow Up: 1 Year From Orig ?? inal Mammogram ? Procedure(s): MM tomosynthesis screening BI ?? Accession Number(s): [id number] ? cc: Karon Powell MD ? EXAMINATION: ?? MM SCREENING DIGITAL BREAST TOMOSYNTHESIS, BILATERAL ? CLINICAL INFORMATION: ? Screening. Asymptomatic. ? COMPARISON: ?? Mammography: Comparison is made with available priors ? TECHNIQUE: ?? Digital breast mammography with tomosynthesis is performed in both the ?? craniocaudal and mediolateral oblique views along with computer-aided ?? detection (CAD). ? FINDINGS: ?? The breasts are heterogeneously dense, which may obscure small masses ?? (ACR BI-RADS breast composition Category c). ? There are no significant masses, abnormal calcifications, or other ?? abnormalities. ? MM/MM tomosynthesis screening BI ?? IMPRESSION: ?? No mammographic evidence of malignancy. ? ASSESSMENT: ? BI-RADS BI-RADS 1 - Negative ? RECOMMENDATION: ?? Routine annual mammography screening. ? 1 year F/U ? This examination should not preclude the clinical evaluation of a ?? suspicious palpable abnormality. ? This patient's information was entered into a reminder system with a ?? target due date for their next mammogram. ? Electronically signed by: ??Ariadna Stovall DO ??03/03/2024 09:14 AM EDT ?? RP ? Dictated By: ?Ariadna Stovall DO ? Signed By: ?<Electronically signed by Ariadna Stovall, DO in OV> ? 03/03/24 0914 ? DD/ 1415 ? TD/TT: 02/13/24 1445 ? Associate Program Manager: ? Procedure Note Donelvie, Image - 03/03/2024 [facility] [address] [place] [address] Mammography Report Signed Patient: Lilibeth WarenMR#: [id number] 259 : 1965Acct:[id number] Age/Sex: 58 / FADM Date: 02/13/24 Loc: HO.MAMMO Attending Dr: Karon Art MD Ordering Physician: Karon Powell MDResults: 1Negative Date of Service: 02/13/24Follow Up: 1 Year From Orig inal Mammogram Procedure(s): MM tomosynthesis screening BI Accession Number(s): [id number] cc: Karon Powell MD EXAMINATION: MM SCREENING DIGITAL BREAST TOMOSYNTHESIS, BILATERAL CLINICAL INFORMATION: Screening. Asymptomatic. COMPARISON: Mammography: Comparison is made with available priors TECHNIQUE: Digital breast mammography with tomosynthesis is performed in both the craniocaudal and mediolateral oblique views along with computer-aided detection (CAD). FINDINGS: The breasts are heterogeneously dense, which may obscure small masses (ACR BI-RADS breast composition Category c). There are no significant masses, abnormal calcifications, or other abnormalities. MM/MM tomosynthesis screening BI IMPRESSION: No mammographic evidence of malignancy. ASSESSMENT: BI-RADS BI-RADS 1 - Negative RECOMMENDATION: Routine annual mammography screening. 1 year F/U This examination should not preclude the clinical evaluation of a suspicious palpable abnormality. This patient's information was entered into a reminder system with a target due date for their next mammogram. Electronically signed by: Ariadna Stovall DO 03/03/2024 09:14 AM EDT Dictated By: Ariadna Stovall DO Signed By: <Electronically signed by Ariadna Stovall DO in OV> 03/03/24 0914 DD/ 1415 TD/TT: 02/13/24 1445 Associate Program Manager: us Karno Art MD IMG BI PROCEDURES Venu panchito Result - Final * (ABNORMAL) Lipid Panel, Standard (09/27/2023 12:17 PM EDT) Triglycerides 181(H) <150 mg/dL [facility] Comment:Desirable Triglyceri de: less than 150 mg/dLBorderline High Triglyceride 150-199 mg/dLHigh Triglyceride: 200-499 mg/dLVery High Triglyceride: greater than or equal to 5OO mg/dL Cholesterol 166 <200 mg/dL [facility] Comment:Desirable Cholestero l: less than 200 mg/dLBorderline High Cholesterol: 200-239 mg/dLHigh Cholesterol: greater than 239 mg/dL LDL Cholesterol Calculated 88 <100 mg/dL [facility] Comment:Desirable LDL: less than 100 mg/dLNear Optimal/Above Optimal LDL: 110- 129 mg/dLBorderline High LDL: 130-159 mg/dLHigh LDL: 160-189 mg/dLVery High LDL: greater than or equal to 190 mg/dL HDL Cholesterol 42 >40 mg/dL [facility] Comment:Desirable HDL: great er than 40 mg/dL Note: This HDL assay may give artificially low results in patients with liver disease. Blood Venous blood specimen / Unknown 09/27/2023 12:17 PM EDT 09/27/2023 1:11 PM EDT us Karon Art MD LAB BLOOD ORDERABLES Final Result [facility] [address] [place] [address] [place] [phone] * HPV E6/E7 RFLX PJ 16 18/45 (01/04/2022 3:19 PM EDT) HPV mRNA E6/E7 rflx Not Detected Not Detected [facility] Comment: Methodology: Team Truck Driver-Mediated Amplification This assay detects E6/E7 viral messenger RNA (mRNA) from 14 high-risk HPV types (16,18,31,33,35,39,45,51,52,56,58,59,66,68). Cervical sources are required for HPV testing. If a vaginal source from a patient who has had a total hysterectomy with removal of cervix was submitted, please contact the testing laboratory for alternative testing options. For additional information, please refer to http://education.Kindara/faq/UHQ930h8 (This link if provided for information/ educational purposes only.) THIS TEST WAS PERFORMED AT: [facility] [address] [facility] [address] [place], [place] ??[phone] SAGAR MALCOLM MD 01/04/2022 3:19 PM EDT Arian Hooks MD HISTORICAL/NON ORDERABLE LABS Fi nal Result [facility] [address] * Pap Smear (01/04/2022) Historical [facility] Final Result * Colonoscopy (06/19/2018) Colonoscopy performed Historical [facility] Edited Result - Final from Last 3 Months or Most Recently Relevant to Health Maintenance Insurance [employer] Care Teams Mine Motor Engineer Relationship Specialty Start Date End Date Karon Powell MD [address] [place] [address] PCP - General Family Medicine 09/10/18
--- OUTSIDE RECORDS SUMMARY | 2024-09-03 17:26 | XMS_ITS | Encounter Summary ---
Author Organization [employer] Address [address] [place] [address] [address] [place] [address] Care Team Providers Care Machinery Erector Name Role Phone Karon Powell MD Primary Care Provide r Encounter Details Date Type Department Care Team (Late Contact Info) Description 03/07/2023 Orders Only [facility] MEDICINE [address] [place] [address] Provider, MD Elidia Social History Tobacco Use Types Packs/Day Years Used Date Smoking Tobacco: Former Cigarettes Passive Smoke Exposure: Past Smokeless Tobacco: Former Comments:She smokes cannabis at bedtime Depression Answer Date Recorded Patient Health Questionnaire-9 Score 0 09/29/2022 Depression Answer Date Recorded Patient Health Questionnaire-2 Score 0 09/29/2022 Comments Unknown Sex and Gender Information Value Date Recorded Sex Assigned at Female 04/11/2022 10:31 AM EDT Legal Sex Female 10:31 AM EDT Gender Identity Female 04/11/2022 10:31 AM EDT Sexual Orientation Straight 04/11/2022 10 :31 AM EDT documented as of this encounter Plan of Treatment Upcoming Encounters Date Type Department Care Team (Late Contact Info) Description 12/09/2024 2:00 PM EDT Office Visit [facility] OPTOMETRY [address] [place] [address] Evita Magaña, OD [address] [place] [address] documented as of this encounter Procedures Procedure Name Priority Date/Time Associated Diagnosis Comments HM PAP/HPV Routine 01/04/2022 documented in this encounter Results * Hm Pap Smear (01/04/2022) us Historical Provider HEALTH MAINTENANCE Final Result documented in this encounter Visit Diagnoses Not on filedocumented in this encounter Additional Health Concerns Assessment Noted Time PHQ-9 Depression Total Score: 0 09/30/19 23 2:49 PM EDT documented as of this encounter Care Teams Machinery Erector Relationship Specialty Start Date End Date Karon Powell MD [address] [place] [address] PCP - General Family Medicine 09/10/18 documented as of this encounter
--- OUTSIDE RECORDS SUMMARY | 2024-09-03 17:26 | XMS_ITS | Clinical Summary ---
Author Organization [facility] Address [address] [place] [phone] Phone Care Team Providers Care Manager Unit Name Role Phone Karon Powell MD Primary Care Provide r Allergies Active Allergy Reactions Criticality Noted Date Comments Fexofenadine 06/14/2021 Oxycodone-Acetaminophen 06/14/2021 Medications topiramate (TOPAMAX) 50 MG tablet Take 50 mg by mouth 2 (two) times a day Active ergocalciferol 1.25 MG (99276 UT) capsule Take 50,000 Units by mouth 1 (one) time per week Active tiotropium (SPIRIVA) 18 MCG per inhalation capsule Place 1 capsule into inhaler and inhale 1 (one) time each day Active pravastatin (PRAVACHOL) 20 MG tablet Take 20 mg by mouth 1 (one) time each day Active glipiZIDE (GLUCOTROL) 10 MG tablet Take 10 mg by mouth 2 (two) times a day before meals Active albuterol (2.5 MG/3ML) 0.083% nebulizer solution Take 2.5 mg by nebulization every 6 (six) hours if needed for wheezing Active acetaminophen (TYLENOL) 500 MG tablet Take by mouth every 6 (six) hours if needed for mild pain Active cyclobenzaprine (FLEXERIL) 5 MG tablet Take 5 mg by mouth 3 (three) times a day if needed for muscle spasms Active citalopram (CeleXA) 10 MG tablet Take 10 mg by mouth 1 Active DULoxetine (CYMBALTA) [address] capsule TAKE 1 CAPSULE BY ORAL ROUTE EVERY DAY 1 Active QUEtiapine (SEROquel) 100 MG tablet Take 100 mg by mouth at bed time 1 Active lisinopril 40 MG tablet Take 40 mg by mouth 1 (one) time each day Active amLODIPine (NORVASC) 2.5 MG tablet TAKE 1 TABLET (2.5 MG TOTAL) BY MOUTH 1 (ONE) TIME EACH DAY 30 tablet 2 Active Active Problems Problem Noted Date Diagnosed Date Chronic kidney disease 06/14/2021 Family History Medical History Relation Comments Diabetes Mother Stroke Mother Relation Status Comments Father Mother Social History Tobacco Use Types Packs/Day Years Used Date Smoking Tobacco: Former Smokeless Tobacco: Never Tobacco Cessation:Counseling Given: Not Answered Alcohol Use Standard Drinks/Week Comments Not Currently 0 (1 standard drink = 0.6 oz pur e alcohol) Comments Unknown Sex and Gender Information Value Date Recorded Sex Assigned at Not on file Legal Sex Female 12:38 PM EST Gender Identity Not on file Sexual Orientation Not on file Last Filed Vital Signs Vital Sign Reading Time Taken Comments Blood Pressure 140/70 05/09/2022 1:49 PM EST Pulse 83 05/09/2022 1:49 PM EST Temperature - - Respiratory Rate - - Oxygen Saturation 97% 05/09/2022 1:49 PM EST Inhaled Oxygen Concentration - - Weight 66 kg (145 lb 6.4 oz) 05/09/2022 1:49 PM EST Height - - Body Mass Index - - Plan of Treatment Health Maintenance Due Date Last Done Comments Breast Cancer Screening 1965 Pneumococcal Vaccine: Pediat rics (0 to 5 Years) and At-Risk Patients (6 to 64 Years) (1 of 2 - PCV) 1969 Colorectal Cancer Screening: Annual FOBT 2012 Colorectal Cancer Screening: Colonoscopy 2012 Colorectal Cancer Screening: Sigmoidoscopy 2012 Influenza Vaccine (#1) 2024 Hepatitis B Vaccine Aged Out No longe r eligible based on patient's age to complete this topic Insurance [place] Care Teams Manager Unit Relationship Specialty Start Date End Date Karon Powell MD [address] [place] [phone] PCP - General Internal Medicine 05/05/21
--- OUTSIDE RECORDS SUMMARY | 2024-09-03 17:26 | XMS_ITS | Encounter Summary ---
Author Organization [employer] Address [address] [place] [address] 7t [place] [address] Care Team Providers Care Hospitalist Name Role Phone Karon Powell MD Primary Care Provide r Encounter Details Date Type Department Care Team (Late Contact Info) Description 07/08/2022 Telephone [facility] MED[facility]INE [address] [place] [address] Natasha Siu LPN Social History Tobacco Use Types Packs/Day Years Used Date Smoking Tobacco: Never Comments:She smokes cannabis at bedtime Comments Unknown [...] Description 12/09/2024 2:00 PM EDT Office Visit [facility] OPTOMETRY [address] [place] [address] Gómez, Evita, OD [address] [place] [address] documented as of this encounter Visit Diagnoses Not on filedocumented in this encounter Care Teams Hospitalist Relationship Specialty Start Date End Date Karon Powell MD [address] [place] [address] PCP - General Family Medicine 09/10/18 documented as of this encounter
--- OUTSIDE RECORDS SUMMARY | 2024-09-03 17:26 | XMS_ITS | Encounter Summary ---
Author Organization [employer] Address [address] [facility] 7t [place] [address] Care Team Providers Care Rn Admit Name Role Phone Karon Powell MD Primary Care Provide r Reason for Visit * Reason Comments Med Refill Encounter Details Date Type Department Care Team ([facility] st Contact Info) Description 09/17/2023 Refill [facility] MEDICINE [address] [place] [address] Karon Powell MD [address] [place] [address] Essential hypertension Social History Tobacco Use Types Packs/Day Years Used Date Smoking Tobacco: Former Cigarettes Passive Smoke Exposure: Past Smokeless Tobacco: Former Comments:She smokes cannabis at bedtime Depression Answer Date Recorded Patient Health Questionnaire-9 Score 12 06/22/2023 Patient Health Questionnaire-9 Score 12 06/22/2023 Last PHQ-9: Questionnaire Data Not on file 0 06/22/2023 Housing Stability Answer Date Recorded What is your housing situation today? I have sean de santiago 06/22/[address] you li ve. Do you have problems with any of the following? Inadequate heat 06/22/2023 Food Insecurity Answer Date Recorded Within the [...] Answer Date Recorded Patient Health Questionnaire-2 Score 6 06/22/2023 Comments Unknown Sex and Gender Information Value [...] Description 12/09/2024 2:00 PM EDT Office Visit [facility] OPTOMETRY [address] [place] [address] Gómez, Evita, OD [address] [place] [address] documented as of this encounter Visit Diagnoses Diagnosis Essential hypertension Unspecified essential hypertension documented in this encounter Additional Health Concerns Assessment Noted Time PHQ-9 Depression Total Score: 12 024 3:49 PM EST documented as of this encounter Care Teams Rn Admit Relationship Specialty Start Date End Date Karon Powell MD [address] [place] [address] PCP - General Family Medicine 09/10/18 documented as of this encounter
--- OUTSIDE RECORDS SUMMARY | 2024-09-03 17:26 | XMS_ITS | Encounter Summary ---
Author Organization [employer] Address [address] [facility] 7t [place] [address] Care Team Providers Care Design Technology Teacher Name Role Phone Karon Powell MD Primary Care Provide r Reason for Visit * Reason Comments Med Refill Encounter Details Date Type Department Care Team ([facility] st Contact Info) Description 09/02/2023 Refill [facility] [address] [place] [address] Karon Powell MD [address] [place] [address] Chronic pain of right knee Social History Tobacco Use Types Packs/Day Years [...] Description 12/09/2024 2:00 PM EDT Office Visit [facility] OPTOMETRY [address] [place] [address] Gómez, Evita, OD [address] [place] [address] documented as of this encounter Visit Diagnoses Diagnosis Chronic pain of right knee documented in this encounter Additional Health Concerns Assessment Noted Time PHQ-9 Depression Total Score: 12 024 3:49 PM EST documented as of this encounter Care Teams Design Technology Teacher Relationship Specialty Start Date End Date Karon Powell MD [address] [place] [address] PCP - General Family Medicine 09/10/18 documented as of this encounter
--- OUTSIDE RECORDS SUMMARY | 2024-09-03 17:27 | XMS_ITS | Encounter Summary ---
Author Organization [employer] Address [address] [facility] 7t [place] [address] Care Team Providers Care Service Engine Repairer Name Role Phone Karon Powell MD Primary Care Provide r Encounter Details Date Type Department Care Team ([facility] st Contact Info) Description 08/23/2024 Population Health Risk Score [facility] ([facility] Department [address] [id number] Provider, Population Health Generic Social History Tobacco Use Types Packs/Day Years Used Date Smoking Tobacco: Former Cigarettes Passive Smoke Exposure: Past Smokeless Tobacco: Former Comments:She smokes cannabis at bedtime Alcohol Use [...] Description 12/09/2024 2:00 PM EDT Office Visit [facility] OPTOMETRY [address] [place] [address] Gómez, Evita, OD [address] [place] [address] documented as of this encounter Visit Diagnoses Not on filedocumented in this encounter Additional Health Concerns Assessment Noted Time PHQ-9 Depression Total Score: 0 12/27/19 24 3:15 PM EDT documented as of this encounter Care Teams Service Engine Repairer Relationship Specialty Start Date End Date Karon Powell MD [address] [place], [place] [phone] PCP - General Family Medicine 09/10/18 documented as of this encounter
--- OUTSIDE RECORDS SUMMARY | 2024-09-03 17:27 | XMS_ITS | Encounter Summary ---
Author Organization [employer] Address [address] [facility] 7t [place] [address] Care Team Providers Care Sales Engagement Manager Name Role Phone Karon Powell MD Primary Care Provide r Reason for Visit * Reason Comments Asthma Encounter Details Date Type Department Care Team ([facility] st Contact Info) Description 09/03/2024 1:20 PM EDT Office Visit [facility] [address] [place] [address] Milo oRsales MD [address] [place] [address] Mild intermittent asthma with acute exacerbation (Primary Dx) Social History Tobacco Use Types Packs/Day Years [...] AM EDT documented as of this encounter Last Filed Vital Signs Vital Sign Reading [...] Mass Index 27.22 09/03/2024 12:54 PM EDT documented in this encounter Progress Notes * Milo Hagen MD - 09/03/2024 1:20 PM EDT SUBJECTIVE Nicole Ware is a 59 y.o. female who presents for Asthma. Asthma She complains of chest tightness and wheezing. There is no cough or shortness of breath. This is a recurrent problem. Pertinent negatives include no chest pain, fever, headaches or sore throat. Her past medical history is significant for asthma. Review of Systems Constitutional: Negative for fever. HENT: Negative for sore throat. Respiratory: Positive for wheezing. Negative for cough and shortness of breath. Cardiovascular: Negative for chest pain. Gastrointestinal: Negative for abdominal pain. Neurological: Negative for headaches. Allergies Allergen Reactions Acetaminophen Nausea And Vomiting Other reaction(s): collapse Apple Juice Anaphylaxis Avocado Anaphylaxis Fexofenadine Anaphylaxis Other reaction(s): itching Oxycodone Other reaction(s): collapse Other Reaction(s): NAUSEA, DIZZINESS, FALLS Peanut-Containing Drug Products Anaphylaxis Naproxen Unknown Oxycodone-Acetaminophen Orlando Extract OBJECTIVE Vitals: 09/03/24 1254 09/03/24 1259 BP: (!) 163/109 (!) 154/106 BP Location: Left arm Right arm Patient Position: Sitting Sitting BP Cuff Size: Adult Adult Pulse: 81 Resp: 18 Temp: 98.5 ??F (36.9 ??C) TempSrc: Oral SpO2: 97% Weight: 148 lb 12.8 oz (67.5 kg) Height: 5' 2 (1.575 m) Physical Exam Vitals reviewed. Constitutional: Appearance: Normal appearance. HENT: Head: Normocephalic and atraumatic. Right Ear: External ear normal. Left Ear: External ear normal. Nose: Nose normal. Mouth/Throat: Mouth: Mucous membranes are moist. Eyes: Conjunctiva/sclera: Conjunctivae normal. Cardiovascular: Rate and Rhythm: Normal rate and regular rhythm. Pulmonary: Effort: Pulmonary effort is normal. No accessory muscle usage or respiratory distress. Breath sounds: Examination of the right-upper field reveals wheezing. Examination of the left-upperfield reveals wheezing. Examination of the right- middle field reveals wheezing. Examination of the left-middle field reveals wheezing. Wheezing present. Skin: General: Skin is warm. Neurological: Mental Status: She is alert. Mental status is at baseline. Assessment/Plan Problem List Items Addressed This Visit Mild intermittent asthma with acute exacerbation - Primary Pt with a Hx of asthma. Here with c/o wheezing, and cough productive of phlegm On exam extensive wheezing Rapid Flu and Covid negative Plan: Albuterol nebulization, Prednisone taper, Z-pack Chest x-ray F/u if worsening or no improvement Relevant Medications guaiFENesin (Robitussin) 100 MG/5ML liquid azithromycin (Zithromax Z-Uriah) 250 MG tablet predniSONE (Deltasone) 20 MG tablet albuterol (2.5 MG/3ML) 0.083% nebulizer solution albuterol (ProAir HFA) 108 (90 Base) MCG/ACT inhaler albuterol (2.5 MG/3ML) 0.083% nebulizer solution 2.5 mg (Completed) Other Relevant Orders POCT Rapid COVID Ag (Completed) Influenza A (ID NOW Rapid Molecular) (Completed) Influenza B (ID NOW Rapid Molecular) (Completed) XR Chest 2 Views documented in this encounter Miscellaneous Notes * Assessment & Plan Note - Milo Hagen MD - 09/03/2024 1:15 PM EDT Associated Problem(s): Mild intermittent asthma with acute exacerbation Pt with a Hx of asthma. Here with c/o wheezing, and cough productive of phlegm On exam extensive wheezing Rapid Flu and Covid negative Plan: Albuterol nebulization, Prednisone taper, Z-pack Chest x-ray F/u if worsening or no improvement documented in this encounter Plan of Treatment Upcoming Encounters Date Type Department Care Team (Late st Contact Info) Description 12/09/2024 2:00 PM EDT Office Visit [facility] OPTOMETRY [address] [place] [address] Evita Magaña, OD [address] [place] [address] documented as of this encounter Procedures Procedure [...] EDT Mild intermittent asthma with acute exacerbation documented in this encounter Results * XR Chest 2 Views (09/03/2024 1:59 PM EDT) Anatomical Region Laterality Modality Chest Radiographic Radha ging 09/03/2024 1:59 PM EDT Narrative 09/03/2024 2:37 PM EDT ?[facility] ?[address] ?[place] [address] ?XRay Report ? Signed ? Patient: Nicole Ware ?MR#: [id number] ?? [id number] ? : 1965 ?Acct:[id number] ? Age/Sex: 59 / F ?ADM Date: 09/03/24 ? Loc: HO.HHCX ? Attending Dr: Milo Martinez MD ? Ordering Physician: Milo Martinez MD ?? Date of Service: 09/03/24 ?? Procedure(s): XR chest 2V ?? Accession Number(s): [id number] ? cc: Milo Martinez MD ? EXAMINATION: [...] ??Carlos Bustillos MD ??09/03/2024 02:35 PM EDT ?? RP ? Dictated By: ?Carlos Bustillos MD ? Signed By: ?<Electronically signed by Carlos Bustillos MD in OV> ?09/03/24 1435 ? DD/ 1359 ? TD/TT: 09/03/24 1418 ? Ase Master Mechanic: ? Procedure Note Donotuseinterpreter, Image - 09/03/2024 [facility] [address] [place] [address] XRay Report Signed Patient: Lilibeth WarenMR#: [id number] : 1965Acct:[id number] Age/Sex: 59 / FADM Date: 09/03/24 Loc: HO.HHCX Attending Dr: Milo Martinez MD Ordering Physician: Milo Martinez MD Date of Service: 09/03/24 Procedure(s): XR chest 2V Accession Number(s): [id number] cc: Milo Martinez MD EXAMINATION: XR CHEST [...] Carlos Bustillos MD 09/03/2024 02:35 PM EDT Dictated By: Carlos Bustillos MD Signed By: <Electronically signed by Carlos Bustillos MD in OV> 09/03/24 1435 DD/ 1359 TD/TT: 09/03/24 1418 Ase Master Mechanic: Milo Hagen MD IMG XR PROCEDURES Venu panchito Result - Final * Influenza B (ID NOW Rapid Molecular) (09/03/2024 1:15 PM EDT) Influenza B Negative Negative, Indeterminate [facility] Swab 09/03/2024 1:15 PM EDT us Milo Hagen MD POINT OF CARE TEST EN TER/EDIT ORDERABLES Final Result Performing Organization Address [facility]/ZIP Co de Phone Number [facility] [address] [place] [phone] * Influenza A (ID NOW Rapid Molecular) (09/03/2024 1:15 PM EDT) Influenza A Negative Negative, Indeterminate [facility] Swab 09/03/2024 1:15 PM EDT Milo Hagen MD POINT OF CARE TEST EN TER/EDIT ORDERABLES Final Result Performing Organization Address [facility] Co de Phone Number [facility] [address] [place] [phone] * POCT Rapid COVID Ag (09/03/2024 1:15 PM EDT) Rapid COVID Ag Negative [facility] Swab 09/03/2024 1:15 PM EDT Milo Hagen MD POINT OF CARE TEST EN TER/EDIT ORDERABLES Final Result Performing Organization Address [facility] Co de Phone Number [facility] [address] [place] [phone] documented in this encounter Visit Diagnoses Diagnosis Mild intermittent asthma with acute exacerbation- Primary documented in this encounter Administered Medications Inactive Administered Medications - up to 3 most recent administrations Medication Order MAR Action Action Date Dose Rate Site albuterol (2.5 MG/3ML) 0.083% nebulizer solution 2.5 mg 2.5 mg, Nebulization, Once, On Mon09/03/24 at 1330, For 1 doseIndications:Mild intermittent asthma with acute exacerbation Given 09/03/2024 1:30 PM EDT 2.5 mg documented in this encounter Additional Health Concerns Assessment Noted Time PHQ-9 Depression Total Score: 0 12/27/19 24 3:15 PM EDT documented as of this encounter Care Teams Sales Engagement Manager Relationship Specialty Start Date End Date Karon Powell MD [address] [place] [phone] PCP - General Family Medicine 09/10/18 documented as of this encounter
--- OUTSIDE RECORDS SUMMARY | 2024-09-03 17:27 | XMS_ITS | Encounter Summary ---
Author Organization [employer] Address [address] [facility] 7t [place] [address] Care Team Providers Care Certified Midwife Name Role Phone Karon Powell MD Primary Care Provide r Reason for Visit * Reason Comments Med Refill Encounter Details Date Type Department Care Team ([facility] st Contact Info) Description 05/24/2024 Refill [facility] [address] [place] [address] Abbey Mcdowell MD [address] [place] [address] Chronic pain of right knee Social History [...] Description 12/09/2024 2:00 PM EDT Office Visit [facility] OPTOMETRY [address] [place] [address] Evita Magaña, OD [address] [place] [address] documented as of this encounter Visit Diagnoses Diagnosis Chronic pain of right knee documented in this encounter Additional Health Concerns Assessment Noted Time PHQ-9 Depression Total Score: 0 12/27/19 24 3:15 PM EDT documented as of this encounter Care Teams Certified Midwife Relationship Specialty Start Date End Date Karon Powell MD [address] [place] [address] PCP - General Family Medicine 09/10/18 documented as of this encounter
--- OUTSIDE RECORDS SUMMARY | 2024-09-03 17:27 | XMS_ITS | Encounter Summary ---
Author Organization [employer] Address [address] [facility] [address] [place] [address] Care Team Providers Care Glass Science Engineer Name Role Phone Karon Powell MD Primary Care Provide r Reason for Visit * Reason Comments Med Refill Encounter Details Date Type Department Care Team ([facility] st Contact Info) Description 05/27/2024 Refill [facility] [address] [place] [address] Abbey Mcdowell MD [address] [place] [address] Chronic right shoulder pain Social History Tobacco Use Types Packs/Day Years [...] Description 12/09/2024 2:00 PM EDT Office Visit [facility] OPTOMETRY [address] [place] [address] Evita Magaña, OD [address] [place] [address] documented as of this encounter Visit Diagnoses Diagnosis Chronic right shoulder pain Pain in joint, shoulder region documented in this encounter Additional Health Concerns Assessment Noted Time PHQ-9 Depression Total Score: 0 12/27/19 24 3:15 PM EDT documented as of this encounter Care Teams Glass Science Engineer Relationship Specialty Start Date End Date Karon Powell MD [address] [place] [address] PCP - General Family Medicine 09/10/18 documented as of this encounter
== END 2024-09-03 14:00 | disposition home or self-care (01) ==
LOC: HO.HHCX 13:59
PROVIDERS: Visit Provider Internal Medicine
DX: J45.21 Mild intermittent asthma with (acute) exacerbation (principal)
CPT/HCPCS: 71046

== ENCOUNTER → 2024-09-03 13:59 | Outpatient (BNV) | payer MEDICAID, SELFPAY | PROVIDERS: Visit Provider Radiology Diagnostic Radiology | DX: R05.9 Cough, unspecified (principal) | CPT/HCPCS: 71046 ==

== ENCOUNTER 2024-10-08 10:59 | Outpatient (REF) | payer MEDICAID, SELFPAY ==
--- OUTSIDE RECORDS SUMMARY | 2024-10-08 12:47 | XMS_ITS | Encounter Summary ---
Author Organization [employer] Address [address] [facility] 7t [place] [address] Care Team Providers Care Counseling Services Director Name Role Phone Karon Powell MD Primary Care Provide r Reason for Visit * Reason Onset Date Comments Med Refill 08/16/2022 Encounter Details Date Type Department Care Team ([facility] st Contact Info) Description 08/16/2022 Telephone [facility] MEDICINE [address] [place] [address] Karon Powell MD [address] [place] [address] Med Refill Social History Tobacco Use Types [...] (Imitrex) 50 MG tablet Please sent to [facility] - [place] - [address] [facility] Please contact pt at [phone] documented in this encounter Plan of Treatment Upcoming Encounters Date Type Department Care Team ([facility] st Contact Info) Description 12/09/2024 2:00 PM EDT Office Visit [facility] OPTOMETRY [address] [place] [address] Evita Magaña, OD [address] [place] [address] documented as of this encounter Visit Diagnoses Not on filedocumented in this encounter Care Teams Counseling Services Director Relationship Specialty Start Date End Date Karon Powlel MD [address] [place] [address] PCP - General Family Medicine 09/10/18 documented as of this encounter
--- OUTSIDE RECORDS SUMMARY | 2024-10-08 12:47 | XMS_ITS | Clinical Summary ---
Author Organization [employer] Address [address] [place] [address] [address] [place] [address] Care Team Providers Care Employee Service Officer Name Role Phone Karon Powell MD Primary [...] 06/14/2021 Peanut-Containing Drug Products Anaphylaxis High 08/05/2023 [place] Extract 06/20/2024 Medications * This document contains information received from the source organization and may not represent a complete record from that organization. Fluticasone-Salmet ally (Advair Diskus) 500-50 MCG/ACT aerosol powder Inhale [...] 22 Active loperamide (Imodium A-D) 2 MG tabletIndications: Chronic diarrhea Take 2 tablets (4 mg) by mouth if needed for diarrhea. 30 tablet 1 12/21/19 23 Active topiramate 50 MG tabletIndications: Intractable migraine without aura and without status migrainosus Take 50 mg by mouth 2 times daily. 180 tablet 3 01/13/20 23 Active pravastatin (Pravachol) 20 MG tabletIndications: Dyslipidemia Take 1 tablet by mouth daily 90 tablet 3 06/22/19 24 Active pantoprazole (ProtoNix) 40 MG EC tabletIndications: Epigastric pain Take 1 tablet (40 mg) by mouth before breakfast. 90 tablet 3 06/22/19 24 Active cetirizine (ZyrTEC) 10 MG tablet Take 1 tablet (10 mg) by mouth in the morning. 30 tablet 11 08/07/19 24 Active ketotifen (Zaditor) 0.025 % ophthalmic solution One drop to eyes bid prn allergies 5 mL 1 08/07/19 24 Active amoxicillin-clavul anate (Augmentin) 875-125 MG tablet Take 1 tablet by mouth 2 times daily. 08/05/19 24 Active citalopram (CeleXA) 10 MG tablet Take 10 mg by mouth in the morning. Active QUEtiapine (SEROquel) 100 MG tablet Take 100 mg by mouth at bedtime. 09/27/19 24 Active temazepam (Restoril) 15 MG capsule Take 15 mg by mouth at bedtime. 09/27/19 24 Active butalbital-acetami nophen-caffeine (Fioricet) 50-300-40 MG capsuleIndications :Intractable migraine without aura and without status migrainosus Take 1 capsule by mouth every 8 (eight) hours if needed for headaches. 9 capsule 1 12/27/19 24 Active Januvia 25 MG tabletIndications: Type 2 diabetes mellitus with hyperglycemia, without long-term current use of insulin ([facility]) TAKE 1 TABLET BY MOUTH EVERY MORNING 30 tablet 5 03/21/20 24 Active empagliflozin (Jardiance) 25 MGIndications:Type 2 diabetes mellitus with hyperglycemia, without long-term current use of insulin ([facility]) Take 1 tablet (25 mg) by mouth Once per day. 30 tablet 11 03/28/20 24 025 Active amLODIPine (Norvasc) 5 MG tabletIndications: Essential hypertension Take 1 tablet (5 mg) by mouth Once per day. 90 tablet 1 03/28/20 24 025 Active glipiZIDE (Glucotrol) 10 MG tabletIndications: Type 2 diabetes mellitus with hyperglycemia, without long-term current use of insulin ([facility]) Take 1 tablet (10 mg) by mouth before breakfast and before evening meal. 180 tablet 3 03/28/20 24 Active hydroCHLOROthiazid e (HYDRODiuril) 50 MG tabletIndications: Essential hypertension Take 1 tablet (50 mg) by mouth Once per day. 90 tablet 03/28/20 24 Active lisinopril 40 MG tabletIndications: Essential hypertension Take 1 tablet (40 mg) by mouth Once per day. 90 tablet 2 03/28/20 24 Active clobetasol (Temovate) 0.05 % gelIndications:Dys hidrotic dermatitis Apply 1 Application. topically 2 times daily. Apply as needed when rash appears on hand 30 g 1 04/12/20 24 Active cholecalciferol (Vitamin D-3) 25 MCG tabletIndications: Chronic pain of right knee TAKE 1 TABLET BY MOUTH EVERY MORNING 90 tablet 1 05/21/20 24 Active cyclobenzaprine (Flexeril) 10 MG tabletIndications: Chronic right shoulder pain Take 1 tablet (10 mg) by mouth if needed in the morning, at noon, and at bedtime for muscle spasms for up to 10 days. 30 tablet 05/24/20 24 Active Diclofenac Sodium 1 % gelIndications:Chr onic pain of right knee APPLY TO AFFECTED AREA 3 TIMES A DAY NEEDED FOR PAIN 100 g 05/24/20 24 Active lidocaine (Lidoderm) 5 % patch Apply 1 patch topically Once per day. Remove & discard patch within 12 hours or as directed by MD. 30 patch 1 05/24/20 24 Active azithromycin (Zithromax Z-Uriah) 250 MG tabletIndications: Mild intermittent asthma with acute exacerbation Take 2 tabs po x 1 day then 1 tab po daily x 4 days 6 tablet 09/04/19 25 Active albuterol (2.5 MG/3ML) 0.083% nebulizer solutionIndication s:Mild intermittent asthma with acute exacerbation Take 3 mL (2.5 mg) by nebulization every 6 (six) hours if needed for wheezing. 75 mL 1 09/04/19 Active albuterol (ProAir HFA) 108 (90 Base) MCG/ACT inhalerIndications :Mild intermittent asthma with acute exacerbation Inhale 2 puffs every 4 (four) hours. 18 g 1 09/04/19 Active ondansetron ODT (Zofran-ODT) 4 MG disintegrating tabletIndications: Epigastric pain Take 1 tablet (4 mg) by mouth every 8 (eight) hours if needed for nausea or vomiting for up to 7 days. 20 tablet 10/08/19 25 025 Active omeprazole OTC (PriLOSEC OTC) 20 MG EC tabletIndications: Epigastric pain Take 1 tablet (20 mg) by mouth before breakfast for 7 days. Do not crush, chew, or split. 7 tablet 10/08/19 25 025 Active guaiFENesin (Robitussin) 100 MG/5ML liquidIndications: Mild intermittent asthma with acute exacerbation Take 10 mL (200 mg) by mouth if needed in the morning, at noon, and at bedtime for cough for up to 10 days. 120 mL 09/04/19 25 025 predniSONE (Deltasone) 20 MG tabletIndications: Asthma Take 3 tablets (60 mg) by mouth Once per day for 3 days, THEN 2 tablets (40 mg) Once per day for 3 days, THEN 1 tablet (20 mg) Once per day for 2 days, THEN 0.5 tablets (10 mg) Once per day for 2 days. 18 tablet 09/04/19 25 025 Active Problems Problem Noted Date Diagnosed Date [...] Services needed PCP management Off-site services for . OP referral will be placed for MH services. Nicole was advised to return phone calls and re-engage with MH services with [facility] in [place]. Phone number provided as well for BHN/intake [...] calls and re-engage with MH services with [facility] in [place]. Phone number provided as well for BHN/intake [...] has a therapist and a Psychiatrist at [facility] in [place]. Provided education around integrated medicine and the [...] for herself PLAN: 1. Follow up with [facility]: Not recommended for follow-up 2. Patient goal [...] Encounters Date Type Department Care Team Description 10/07/2024 5:20 PM EDT Office Visit [facility] [address] [place] [phone] Alexey Godinez MD Epigastric pain (Primary Dx) 10/07/2024 Travel 09/10/2024 Telephone [facility] [address] [place] [address] Karon Powell MD Radiology 09/03/2024 1:20 PM EDT Office Visit [facility] [address] [place] [address] Milo Rosales MD Mild intermittent asthma with acute exacerbation (Primary Dx) 08/23/2024 Population Health Risk Score [facility] Department [address] [place] [address], [place] [phone] Provider, Population Health Generic from Last 3 Months Immunizations Name Administration [...] Sign Reading Time Taken Comments Blood Pressure 139/76 10/07/2024 4:59 PM EDT Pulse 96 10/07/2024 4:59 PM EDT Temperature 36.7 ??C (98.1 ??F) 10/07/2024 4:59 PM ED T Respiratory Rate 15 10/07/2024 4:59 PM EDT Oxygen Saturation 96% 10/07/2024 4:59 PM EDT Inhaled Oxygen Concentration - - Weight 67 kg (147 lb 12.8 oz) 10/07/2024 4:59 PM EDT Height 157.5 cm (5' 2 ) 09/03/2024 12:54 PM EDT Body Mass Index 27.03 09/03/2024 12:54 PM EDT Plan of Treatment Upcoming Encounters Date Type Department Care Team (Late st Contact Info) Description 12/09/2024 2:00 PM EDT Office Visit [facility] [address] [place] [address] Gómez, Evita, OD [address] [place] [address] Health Maintenance Due Date Last Done Comments [...] 60-74 years 1-dose series) 2023 COVID-19 Vaccine (3 - season) 2024 11/30/2020, 10/30/2020 Influenza Vaccine (#1) [...] Colonoscopy 06/19/2025 06/19/2018 Colorectal Cancer Screening 06/19/2025 Eye Exam 08/15/2025 08/16/2023, 03/0 11/2023, 08/16/2023, Additional history exists Tobacco Screening 10/07/2025 10/07/2024 Cervical Cancer Screening 01/04/2027 HPV/Cotest 01/04/2027 01/04/2022, [...] EDT Mild intermittent asthma with acute exacerbation CREATININE, RANDOM URINE Routine 06/17/2024 10:35 AM EST POCT GLYCATED HEMOGLOBIN, TOTAL Routine 03/28/2024 2:29 PM EDT Type 2 diabetes mellitus with hyperglycemia, without long-term current use of insulin ([facility]) BI MAMMOGRAM SCREENING TOMOSYNTHESIS BILATERAL [...] PM EDT Narrative 09/03/2024 2:37 PM EDT ?[facility] [facility] ?[address] ?[place] [address] ?XRay Report ? Signed ? Patient: Mendrez,Nicole ?MR#: [id number] ?? 259 ? : 1965 ?Acct:[id number] ? Age/Sex: 59 / F ?ADM Date: 09/03/24 ? Loc: HO.HHCX ? Attending Dr: Milo Martinez MD ? Ordering Physician: Milo Martinez MD ?? Date of Service: 09/03/24 ?? Procedure(s): XR chest 2V ?? Accession Number(s): [id number] ? cc: Milo Martinez MD ? EXAMINATION: [...] DD/ 1359 ? TD/TT: 09/03/24 1418 ? Channel Sales Director: ? Procedure Note Khoa, Image - 09/03/[address] [address] XRay Report Signed Patient: Lilibeth WarenMR#: [id number] 259 : 1965Acct:[id number] Age/Sex: 59 / FADM Date: 09/03/24 Loc: HO.HHCX Attending Dr: Milo Martinez MD Ordering Physician: Milo Martinez MD Date of Service: 09/03/24 Procedure(s): XR chest 2V Accession Number(s): [id number] cc: Milo Martinez MD EXAMINATION: XR CHEST [...] 09/03/24 1435 DD/ 1359 TD/TT: 09/03/24 1418 Channel Sales Director: Milo Hagen MD IMG XR PROCEDURES Venu panchito Result - Final * Influenza B (ID NOW Rapid Molecular) (09/03/2024 1:15 PM EDT) Influenza B Negative Negative, Indeterminate [facility] Swab 09/03/2024 1:15 PM EDT Milo Hagen MD POINT OF CARE TEST EN TER/EDIT ORDERABLES Final Result Performing Organization Address [facility] Co de Phone Number [facility] [address] [place] [phone] * Influenza A (ID NOW Rapid Molecular) (09/03/2024 1:15 PM EDT) Influenza A Negative Negative, Indeterminate [facility] Swab 09/03/2024 1:15 PM EDT Milo Hagen MD POINT OF CARE TEST EN TER/EDIT ORDERABLES Final Result Performing Organization Address [facility] Co de Phone Number [facility] [address] [place] [phone] * POCT Rapid COVID Ag (09/03/2024 1:15 PM EDT) Rapid COVID Ag Negative [facility] Swab 09/03/2024 1:15 PM EDT us Milo Hagen MD POINT OF CARE TEST EN TER/EDIT ORDERABLES Final Result Performing Organization Address City/[facility]/ZIP Co de Phone Number [facility] [address] [place] [phone] * Creatinine, Random Urine (06/17/2024 10:35 AM EST) Pathologist [facility] Creatinine, Urine 61.59 mg/dL [facility] 06/17/2024 10:3 5 AM EST 06/17/2024 12:11 PM EST us Generic External Data Provider LAB URINE ORDERAB LES Final Result Performing Organization Address [facility] Co de Phone Number [facility] [address] [place] [phone] * (ABNORMAL) POCT HGB A1C (03/28/2024 2:29 PM EDT) Pathologist [facility] Hemoglobin A1C 9.4(A) 4.0 - 6.0 % QC Media Lot # [id number] Lot# Expiration Date [id number] Blood 03/28/2024 2:29 PM EDT us Karon Art MD POINT OF CARE TEST EN TER/EDIT ORDERABLES Final Result * BI Mammogram Screening Tomosynthesis Bilateral (02/13/2024 2:15 PM EDT) Anatomical Region Laterality Modality Breast Bilateral Mammography 02/13/2024 2:15 PM EDT Narrative 03/03/2024 9:17 AM EDT ? [facility] ? [address] ?[place] [address] ? Mammography Report ? Signed ? Patient: Mendrez,Nicole ?MR#: [id number] ?? 259 ? : 1965 ?Acct:[id number] ? Age/Sex: 58 / F ?ADM Date: 02/13/24 ? Loc: HO.MAMMO ? Attending Dr: Karon Art MD ? Ordering Physician: Karon Powell MD ?Results: ?? 1Negative ? Date of Service: 02/13/24 ?Follow Up: 1 Year From Orig ?? inal Mammogram ? Procedure(s): MM tomosynthesis screening BI ?? Accession Number(s): [id number] ? cc: Karon Powell MD ? EXAMINATION: [...] DD/ 1415 ? TD/TT: 02/13/24 1445 ? Channel Sales Director: ? Procedure Note Donotuseinterpreter, Image - 03/03/2024 [facility] [address] [place] [address] Mammography Report Signed Patient: Lilibeth WarenMR#: [id number] 259 : 1965Acct:[id number] Age/Sex: 58 / FADM Date: 02/13/24 Loc: HO.MAMMO Attending Dr: Karon Art MD Ordering Physician: Karon Powell MDResults: 1Negative Date of Service: 02/13/24Follow Up: 1 Year From Orig inal Mammogram Procedure(s): MM tomosynthesis screening BI Accession Number(s): [id number] cc: Karon Powell MD EXAMINATION: MM SCREENING [...] 03/03/24 0914 DD/ 1415 TD/TT: 02/13/24 1445 Channel Sales Director: Karon Art MD IMG BI PROCEDURES Venu panchito Result - Final * (ABNORMAL) Lipid Panel, Standard (09/27/2023 12:17 PM EDT) Triglycerides 181(H) <150 mg/dL [facility] Comment:Desirable Triglyceri de: less than 150 mg/dLBorderline High Triglyceride 150-199 mg/dLHigh Triglyceride: 200-499 mg/dLVery High Triglyceride: greater than or equal to 5OO mg/dL Cholesterol 166 <200 mg/dL [facility] Comment:Desirable Cholestero l: less than 200 mg/dLBorderline High Cholesterol: 200-239 mg/dLHigh Cholesterol: greater than 239 mg/dL LDL Cholesterol Calculated 88 <100 mg/dL [facility] Comment:Desirable LDL: less than 100 mg/dLNear Optimal/Above Optimal LDL: 110- 129 mg/dLBorderline High LDL: 130-159 mg/dLHigh LDL: 160-189 mg/dLVery High LDL: greater than or equal to 190 mg/dL HDL Cholesterol 42 >40 mg/dL [facility] Comment:Desirable HDL: great er than 40 mg/dL Note: This HDL assay may give artificially low results in patients with liver disease. Blood Venous blood specimen / Unknown 09/27/2023 12:17 PM EDT 09/27/2023 1:11 PM EDT Karon Art MD LAB BLOOD ORDERABLES Final Result Performing Organization Address City/[facility]/ZIP Co de Phone Number [facility] [address] [place] [phone] * HPV E6/E7 RFLX PJ 16 18/45 (01/04/2022 3:19 PM EDT) HPV mRNA E6/E7 rflx Not Detected Not Detected [facility] Comment: Methodology: Chefs-Mediated Amplification This assay detects E6/E7 viral messenger RNA (mRNA) from 14 high-risk HPV types (16,18,31,33,35,39,45,51,52,56,58,59,66,68). Cervical sources are required for HPV testing. If a vaginal source from a patient who has had a total hysterectomy with removal of cervix was submitted, please contact the testing laboratory for alternative testing options. For additional information, please refer to http://education.On The Net Yet/faq/MEW275q7 (This link if provided for information/ educational purposes only.) THIS TEST WAS PERFORMED AT: [facility] [address] [facility] [address] [place], [place] ??[phone] SAGAR MALCOLM MD 01/04/2022 3:19 PM EDT Arian Hooks MD HISTORICAL/NON ORDERABLE LABS Fi nal Result Performing Organization Address [facility]/ZIP Co de Phone Number [facility] [address] * Hm Pap Smear (01/04/2022) Historical Provider HEALTH MAINTENANCE Final Result * Hm Colonoscopy (06/19/2018) Colonoscopy performed Historical Provider HEALTH MAINTENANCE Edited Result - Final from Last 3 Months or Most Recently Relevant to Health Maintenance Insurance [facility] C3 Care Teams Employee Service Officer Relationship Specialty Start Date End Date Karon Powell MD [address] [place] [address] PCP - General Family Medicine 09/10/18
--- OUTSIDE RECORDS SUMMARY | 2024-10-08 12:48 | XMS_ITS | Encounter Summary ---
Author Organization [employer] Address [address] [facility] [address]t [place] [address] Care Team Providers Care Receiving Inspector Name Role Phone Karon Powell MD Primary Care Provide r Reason for Visit * Reason Comments Med Refill Encounter Details Date Type Department Care Team ([facility] st Contact Info) Description 05/27/2024 Refill [facility] [address] [place] [address] Abbey Mcdowell MD [address] [place] [address] Chronic right shoulder pain Social History Tobacco [...] Description 12/09/2024 2:00 PM EDT Office Visit [facility] OPT[facility] [address] [place] [address] Evita Magaña, OD [address] [place] [address] documented as of this encounter Visit Diagnoses Diagnosis Chronic right shoulder pain Pain in joint, shoulder region documented in this encounter Additional Health Concerns Assessment Noted Time PHQ-9 Depression Total Score: 0 12/27/19 24 3:15 PM EDT documented as of this encounter Care Teams Receiving Inspector Relationship Specialty Start Date End Date Karon Powell MD [address] [place] [address] PCP - General Family Medicine 09/10/18 documented as of this encounter
--- OUTSIDE RECORDS SUMMARY | 2024-10-08 12:48 | XMS_ITS | Encounter Summary ---
Author Organization [employer] Address [address] [facility] [address] [place] [address] Care Team Providers Care Bedspread Seamer Name Role Phone Karon Powell MD Primary Care Provide r Encounter Details Date Type Department Care Team ([facility] st Contact Info) Description 10/07/2024 5:20 PM EDT Office Visit [facility] [address] [place] [address] Alexey Godinez MD [address] [place] [address] Epigastric pain (Primary Dx) Social History Tobacco Use Types [...] 12.8 oz) 10/07/2024 4:59 PM EDT Height - - Body Mass Index 27.03 09/03/2024 12:54 PM EDT documented in this encounter Progress Notes * Alexey Godinez MD - 10/07/2024 5:20 PM EDT Subjective History was provided by the patient. Nicole Ware is a 59 y.o. female who presents for evaluation of 3-day duration of epigastric pain and N/V. Denies diarrhea. Denies BRBPR or melena. Denies hematemesis. Denies F/C. Denies any significant alcohol consumption or NSAIDs use. No unusual food consumption or recent travel. Previous BUN/Cr 20/0.82 (06/2024) and Hgb A1c 9.4 (03/2024). Denies cough, congestion, rhinorrhea, or sore throat. Denies reflux symptoms. Objective Vitals: 10/07/24 1659 BP: 139/76 Pulse: 96 Resp: 15 Temp: 98.1 ??F (36.7 ??C) TempSrc: Oral SpO2: 96% Weight: 147 lb 12.8 oz (67 kg) Physical Exam Vitals reviewed. Constitutional: General: She is not in acute distress. Appearance: Normal appearance. She is normal weight. She is not ill-appearing, toxic-appearing or diaphoretic. HENT: Head: Normocephalic and atraumatic. Right Ear: External ear normal. Left Ear: External ear normal. Nose: Nose normal. Mouth/Throat: Mouth: Mucous membranes are moist. Pharynx: Oropharynx is clear. Eyes: Extraocular Movements: Extraocular movements intact. Conjunctiva/sclera: Conjunctivae normal. Pupils: Pupils are equal, round, and reactive to light. Cardiovascular: Rate and Rhythm: Normal rate and regular rhythm. Heart sounds: Normal heart sounds. Pulmonary: Effort: Pulmonary effort is normal. Breath sounds: Normal breath sounds. Abdominal: General: Abdomen is flat. Bowel sounds are normal. There is no distension. Palpations: Abdomen is soft. Tenderness: There is abdominal tenderness (mild tenderness at the epigastric area). There is no right CVA tenderness, left CVA tenderness, guarding or rebound. Musculoskeletal: General: Normal range of motion. Cervical back: Normal range of motion and neck supple. Skin: General: Skin is warm and dry. Neurological: General: No focal deficit present. Mental Status: She is alert and oriented to person, place, and time. Psychiatric: Mood and Affect: Mood normal. Behavior: Behavior normal. Diagnoses and all orders for this visit: Epigastric pain (Primary) - CBC auto differential; Future - Comprehensive Metabolic Panel; Future - Amylase; Future - Lipase; Future - ondansetron ODT (Zofran-ODT) 4 MG disintegrating tablet; Take 1 tablet (4 mg) by mouth every 8 (eight) hours if needed for nausea or vomiting for up to 7 days. - omeprazole OTC (PriLOSEC OTC) 20 MG EC tablet; Take 1 tablet (20 mg) by mouth before breakfast for 7 days. Do not crush, chew, or split. Patient presents to [facility] with 3-day duration of epigastric pain and N/V Denies any GI bleeding symptoms Unsure of any triggers No clinical evidence of acute abdomen No F/C or diarrhea No rebound or guarding Denies any significant alcohol consumption or NSAIDs use Check CBC, CMP, Amylase, and Lipase Rx Ondansetron and Omeprazole (states she is not taking any H2 perlita at this time) Potential adverse effects of the medications reviewed Advised to contact the clinic if any persistent or worsening symptoms Indications for UC/ER use reviewed documented in this encounter Plan of Treatment Upcoming Encounters Date Type Department Care Team (Late st Contact Info) Description 12/09/2024 2:00 PM EDT Office Visit [facility] [address] [place], [place] [phone] Gómez, Evita, OD [address] [place], [place] [phone] Scheduled Orders Name Type Priority Associated Diagnoses Orde r Schedule CBC auto differential Lab Routine Epigastric pain Expected: 10/07/2024 (Approximate), Expires: 10/07/2025 Comprehensive Metabolic Panel Lab Routine Epigastric pain Expected: 10/07/2024 (Approximate), Expires: 10/07/2025 Amylase Lab Routine Epigastric pain Expected: 10/07/2024 (Approximate), Expires: 10/07/2025 Lipase Lab Routine Epigastric pain Expected: 10/07/2024, Expires: 10/07/2025 documented as of this encounter Visit Diagnoses Diagnosis Epigastric pain- Primary Abdominal pain, epigastric documented in this encounter Additional Health Concerns Assessment Noted Time PHQ-9 Depression Total Score: 0 12/27/19 24 3:15 PM EDT documented as of this encounter Care Teams Bedspread Seamer Relationship Specialty Start Date End Date Karon Powell MD [address] [place], [place] [phone] PCP - General Family Medicine 09/10/18 documented as of this encounter
--- OUTSIDE RECORDS SUMMARY | 2024-10-08 12:48 | XMS_ITS | Clinical Summary ---
Author Organization [facility] Address [address] [place] [phone] Phone Care Team Providers Care Retail Specialist Name Role Phone Karon Powell MD Primary Care Provide r Allergies Active Allergy Reactions Criticality Noted Date Comments Fexofenadine 06/14/2021 Oxycodone-Acetaminophen 06/14/2021 Medications topiramate (TOPAMAX) 50 MG tablet Take 50 mg by mouth 2 (two) times a day Active ergocalciferol 1.25 MG (73702 UT) capsule Take 50,000 Units by mouth [...] Comments Breast Cancer Screening 1965 Pneumococcal Vaccine: 50+ Ye ars (1 of 2 - PCV) 1982 Colorectal Cancer Screening: Annual FOBT 2012 Colorectal Cancer Screening: Colonoscopy 2012 Colorectal Cancer Screening: Sigmoidoscopy 2012 Influenza Vaccine (Season Ended) 2025 Hepatitis B Vaccine Aged Out No longe r eligible based on patient's age to complete this topic Insurance Medicaid [place] Medicaid [place] Care Teams Retail Specialist Relationship Specialty Start Date End Date Karon Powell MD [address] [place] [phone] PCP - General Internal Medicine 05/05/21
--- OUTSIDE RECORDS SUMMARY | 2024-10-08 12:48 | XMS_ITS | Encounter Summary ---
Author Organization [employer] Address [address] [facility] 7t [place] [address] Care Team Providers Care Home Worker Name Role Phone Karon Powell MD Primary Care Provide r Encounter Details Date Type Department Care Team (Latest Contact Info) Description 10/07/2024 Travel Social History Tobacco Use Types Packs/Day Years [...] is your housing situation today? I have seanhenrique de santiago 12/27/[address] [...] Description 12/09/2024 2:00 PM EDT Office Visit [facility] [address] [place], [place] [id number] Gómez, Evita, OD [address] [place] [address] documented as of this encounter Visit Diagnoses Not on filedocumented in this encounter Additional Health Concerns Assessment Noted Time PHQ-9 Depression Total Score: 0 12/27/19 24 3:15 PM EDT documented as of this encounter Care Teams Home Worker Relationship Specialty Start Date End Date Karon Powell MD [address] [place] [address] PCP - General Family Medicine 09/10/18 documented as of this encounter
--- OUTSIDE RECORDS SUMMARY | 2024-10-08 12:48 | XMS_ITS | Encounter Summary ---
Author Organization [employer] Address [address] [facility] 7t [place] [address] Care Team Providers Care Ginger Farmer Name Role Phone Karon Powell MD Primary Care Provide r Reason for Visit * Reason Comments Med Refill Encounter Details Date Type Department Care Team ([facility] st Contact Info) Description 09/02/2023 Refill [facility] [address] [place] [address] Karon Powell MD [address] [place] [address] Chronic pain of right knee Social History [...] Description 12/09/2024 2:00 PM EDT Office Visit [facility] [address] [place] [address] Gómez, Evita, OD [address] [place] [address] documented as of this encounter Visit Diagnoses Diagnosis Chronic pain of right knee documented in this encounter Additional Health Concerns Assessment Noted Time PHQ-9 Depression Total Score: 12 024 3:49 PM EST documented as of this encounter Care Teams Ginger Farmer Relationship Specialty Start Date End Date Karon Powell MD [address] [place] [address] PCP - General Family Medicine 09/10/18 documented as of this encounter
--- OUTSIDE RECORDS SUMMARY | 2024-10-08 12:48 | XMS_ITS | Encounter Summary ---
Author Organization [employer] Address [address] [facility] 7t [place] [address] Care Team Providers Care Drawstring Knotter Name Role Phone Karon Powell MD Primary Care Provide r Reason for Visit * Reason Comments Med Refill Encounter Details Date Type Department Care Team ([facility] st Contact Info) Description 05/24/2024 Refill [facility] [address] [place] [address] Abbey Mcd[place] MD [address] [place] [address] Chronic pain of right knee Social History [...] 2:00 PM EDT Office Visit [facility] [address] [place] [address] Evita Magaña, OD [address] [place] [address] documented as of this encounter Visit Diagnoses Diagnosis Chronic pain of right knee documented in this encounter Additional Health Concerns Assessment Noted Time PHQ-9 Depression Total Score: 0 12/27/19 24 3:15 PM EDT documented as of this encounter Care Teams Drawstring Knotter Relationship Specialty Start Date End Date Karon Powell MD [address] [place] [address] PCP - General Family Medicine 09/10/18 documented as of this encounter
--- OUTSIDE RECORDS SUMMARY | 2024-10-08 12:48 | XMS_ITS | Encounter Summary ---
Author Organization [employer] Address [address] [place] [address] 7t [place] [address] Care Team Providers Care Rotor Balancer Name Role Phone Karon Powell MD Primary Care Provide r Encounter Details Date Type Department Care Team (Late Contact Info) Description 03/07/2023 Orders Only [facility] [address] [place] [address] Provider, MD Elidia Social History Tobacco Use [...] Description 12/09/2024 2:00 PM EDT Office Visit [facility] [address] [place] [address] Evita Magaña, OD [address] [place] [address] documented as of this encounter Procedures Procedure [...] documented as of this encounter Care Teams Rotor Balancer Relationship Specialty Start Date End Date Karon Powell MD [address] [place] [address] PCP - General Family Medicine 09/10/18 documented as of this encounter
--- OUTSIDE RECORDS SUMMARY | 2024-10-08 12:48 | XMS_ITS | Encounter Summary ---
Author Organization [employer] Address [address] [place] [address] 7t [place] [address] Care Team Providers Care Gift Manager Name Role Phone Karon Powell MD Primary Care Provide r Encounter Details Date Type Department Care Team (Late Contact Info) Description 07/08/[address] [facility] [address] [place] [address] Natasha Siu LPN Social History Tobacco Use [...] Description 12/09/2024 2:00 PM EDT Office Visit [facility] [address] [place] [address] Gómez, Evita, OD [address] [place] [address] documented as of this encounter Visit Diagnoses Not on filedocumented in this encounter Care Teams Gift Manager Relationship Specialty Start Date End Date Karon Powell MD [address] [place] [address] PCP - General Family Medicine 09/10/18 documented as of this encounter
--- OUTSIDE RECORDS SUMMARY | 2024-10-08 12:48 | XMS_ITS | Encounter Summary ---
Author Organization [employer] Address [address] [facility] [address] [place] [address] Care Team Providers Care Jet Piercer Operator Name Role Phone Karon Powell MD Primary Care Provide r Reason for Visit * Reason Comments Med Refill Encounter Details Date Type Department Care Team ([facility] st Contact Info) Description 09/17/2023 Refill [facility] [address] [place] [address] Karon Powell MD [address] [place] [address] Essential hypertension Social History Tobacco Use Types [...] Description 12/09/2024 2:00 PM EDT Office Visit [facility] [address] [place] [address] Gómez, Evita, OD [address] [place] [address] documented as of this encounter Visit Diagnoses Diagnosis Essential hypertension Unspecified essential hypertension documented in this encounter Additional Health Concerns Assessment Noted Time PHQ-9 Depression Total Score: 12 024 3:49 PM EST documented as of this encounter Care Teams Jet Piercer Operator Relationship Specialty Start Date End Date Karon Powell MD [address] [place] [address] PCP - General Family Medicine 09/10/18 documented as of this encounter
[2024-10-08 13:04] LABS: MANUAL DIFF FLAG NO
[2024-10-08 13:21] LABS: Basophils Percent Auto 0.5 % (0-2); Eosinophils Absolute Auto 0.1 X10*3/uL (0.0-0.4); Eosinophils Percent Auto 1.4 % (0-4); Hematocrit 40.6 % (37.0-47.0); Hemoglobin 13.3 g/dl (12.0-16.0); Imm Gran Abs Auto 0.03 X10*3/uL (0.00-0.03); Imm Gran Pct Auto 0.5 % (0.0-0.4); Lymphocytes Absolute Auto 1.8 X10*3/uL (1.2-4.9); Lymphocytes Percent Auto 26.8 % (20-40); Mean Corpuscular HGB Conc 32.8 g/dl (31.0-35.0); Mean Corpuscular Hemoglobin 28.2 pg (27.0-33.0); Mean Platelet Volume 10.3 fL (9.4-12.3); Monocytes Absolute Auto 0.4 X10*3/uL (0.1-1.2); Monocytes Percent Auto 6.7 % (2-11); Neutrophils Absolute Auto 4.2 x10*3/uL (2.0-8.3); Neutrophils Percent Auto 64.1 % (45-73); Platelet Count 218 X10*3/uL (160-400); Red Blood Count 4.72 X10*6/uL (4.20-5.50); Red Cell Distribution Width 13.3 % (11.0-16.0); White Blood Count 6.6 X10*3/uL (4.8-10.8)
[2024-10-08 13:35] LABS: Alanine Aminotransferase 32 U/L (0-31); Albumin Level 4.5 g/dL (3.5-5.0); Alkaline Phosphatase 82 U/L (39-117); Amylase 47 U/L (28-100); Anion Gap 12 (12-20); Aspartate Amino Transferase 24 U/L (5-31); Bilirubin Total 0.5 mg/dL (0.0-1.0); Blood Urea Nitrogen 13 mg/dL (9-16); Calcium 9.3 mg/dL (8.4-10.2); Carbon Dioxide 28 mmol/L (22-29); Chloride 104 mmol/L (96-108); Estimated Glomerular Filt Rate > 60; Glucose Random 222 mg/dL (60-115); Lipase 15 U/L (8-78); Potassium 4.1 mmol/L (3.3-5.1); Sodium 140 mmol/L (135-145); Total Protein 7.2 g/dL (6.5-8.0)
== END 2024-10-08 11:00 | disposition home or self-care (01) ==
LOC: HO.HHCL 10:59
PROVIDERS: Visit Provider Family Medicine
DX: R10.13 Epigastric pain (principal)
CPT/HCPCS: 36415; 80053; 82150; 83690; 85025

== ENCOUNTER 2024-11-04 19:48 | Emergency (ER) | payer MEDICAID, SELFPAY ==
--- NOTE | ~2024-11-04 | US_ITS ---
CLINICAL HISTORY: Upper abdomen? Gallstone, hepatobiliary US abdomen limited Comparison: None Findings: The visualized pancreas is normal. The aorta and inferior vena cava are normal caliber. The liver is enlarged and echogenic. Fat sparing in the gallbladder fossa region. There is no intrahepatic bile duct dilatation. The common duct is 4 mm in diameter. The gallbladder is normal. There is no sonographic Kaufman sign. The main portal vein is antegrade. The right kidney is 13.3 cm in length. 4.3 cm upper pole cyst noted. No ascites. IMPRESSION: Hepatomegaly with hepatic steatosis. This document has been electronically signed by: Yamil Ivy MD, PHD on 11/04/2024 23:55:28
[2024-11-04 19:52] VITALS: BP 181/89; PULSE 74; RESP 18; TEMP 36.4; O2SAT 97; BMI 26.0
[2024-11-04 20:07] LABS: MANUAL DIFF FLAG NO
[2024-11-04 20:08] LABS: Basophils Absolute Auto 0.1 X10*3/uL (0.0-0.2); Basophils Percent Auto 0.6 % (0-2); Eosinophils Absolute Auto 0.2 X10*3/uL (0.0-0.4); Eosinophils Percent Auto 2.6 % (0-4); Hematocrit 39.9 % (37.0-47.0); Hemoglobin 13.8 g/dl (12.0-16.0); Imm Gran Abs Auto 0.02 X10*3/uL (0.00-0.03); Imm Gran Pct Auto 0.2 % (0.0-0.4); Lymphocytes Absolute Auto 2.9 X10*3/uL (1.2-4.9); Lymphocytes Percent Auto 36.4 % (20-40); Mean Corpuscular HGB Conc 34.6 g/dl (31.0-35.0); Mean Corpuscular Hemoglobin 28.8 pg (27.0-33.0); Mean Corpuscular Volume 83.1 fL (80.0-98.0); Mean Platelet Volume 10.1 fL (9.4-12.3); Monocytes Absolute Auto 0.5 X10*3/uL (0.1-1.2); Monocytes Percent Auto 6.6 % (2-11); Neutrophils Absolute Auto 4.3 x10*3/uL (2.0-8.3); Neutrophils Percent Auto 53.6 % (45-73); Platelet Count 235 X10*3/uL (160-400); Red Cell Distribution Width 12.7 % (11.0-16.0); White Blood Count 8.1 X10*3/uL (4.8-10.8)
[2024-11-04 20:23] LABS: Alanine Aminotransferase 23 U/L (0-31); Albumin Level 4.8 g/dL (3.5-5.0); Alkaline Phosphatase 85 U/L (39-117); Anion Gap 14 (12-20); Aspartate Amino Transferase 21 U/L (5-31); Bilirubin Total 0.4 mg/dL (0.0-1.0); Blood Urea Nitrogen 16 mg/dL (9-16); Calcium 9.9 mg/dL (8.4-10.2); Carbon Dioxide 27 mmol/L (22-29); Chloride 101 mmol/L (96-108); Creatinine Clr Calc Pharmacy 80.1; Estimated Glomerular Filt Rate > 60; Glucose Random 257 mg/dL (60-115); Lipase 14 U/L (8-78); Sodium 138 mmol/L (135-145); Total Protein 7.5 g/dL (6.5-8.0)
--- NOTE | 2024-11-04 21:36 | PC.NURSE ---
Pt a&ox4, no signs of distress Pt reports 10/10 epigastric pain Pt denies chest pain or sob Plan of care ongoing.
--- NOTE | 2024-11-04 22:00 | ED.ABDPAIN ---
HPI - Abdominal Pain General Chief Complaint: Abdominal Pain Stated Complaint: abd pain Time Seen by Provider: 11/04/24 21:55 Source: patient Mode of arrival: ambulatory Limitations: no limitations History of Present Illness ED Provider: HPI narrative: Patient's history of asthma-COPD, hypertension, anxiety, diabetes comes here for 1 month of epigastric pain seen her PCP is on PPI no prior history of gallstones been nauseated pain gets worse after eating food pain is burning in character no radiation of the pain does have nausea occasional vomiting for last 5 days no fever no chills no radiation of the pain patient has had the labs done last month which was with normal liver functions Related Data Home Medications ?Medication ?Instructions ?Recorded ?Confirmed citalopram 10 mg tablet 10 mg PO QAM 01/04/22 06/17/24 glipizide 10 mg tablet 10 mg PO BID 01/04/22 06/17/24 hydrochlorothiazide 50 mg tablet 50 mg PO DAILY 01/04/22 06/17/24 lisinopril 40 mg tablet 40 mg PO DAILY 01/04/22 06/17/24 pravastatin 20 mg tablet 20 mg PO DAILY 01/04/22 06/17/24 quetiapine 100 mg tablet 100 mg PO BEDTIME 01/04/22 06/17/24 topiramate 50 mg tablet 50 mg PO BID 01/04/22 06/17/24 cyclobenzaprine 5 mg tablet 10 mg PO BID 02/15/23 06/17/24 pantoprazole 40 mg tablet,delayed 40 mg PO QAM 02/15/23 06/17/24 release acetaminophen 650 mg 650 mg PO PRN 06/20/23 06/17/24 tablet,extended release loperamide 2 mg capsule 2 mg PO PRN 06/20/23 06/17/24 amlodipine 5 mg tablet 5 mg PO QAM 12/19/23 06/17/24 amoxicillin 875 mg-potassium 1 tab PO BID PRN 12/19/23 06/17/24 clavulanate 125 mg tablet cetirizine 10 mg tablet 10 mg PO QAM 12/19/23 06/17/24 cholecalciferol (vitamin D3) 25 25 mcg PO QAM 12/19/23 06/17/24 mcg (1,000 unit) tablet empagliflozin 10 mg tablet 10 mg PO QAM 12/19/23 06/17/24 (Jardiance) sitagliptin phosphate 25 mg tablet 25 mg PO QAM 12/19/23 06/17/24 (Januvia) temazepam 15 mg capsule 15 mg PO BEDTIME PRN 12/19/23 06/17/24 Previous Rx's ?Medication ?Instructions ?Recorded famotidine 40 mg tablet 40 mg PO DAILY GERD 30 days #30 06/29/22 tabs fluticasone propionate 50 2 spray intranasal DAILY for 11/07/23 mcg/actuation nasal allergic rhinitis #48 mL spray,suspension qepkelvekt-qvzfwuovqfwlu-qpxkhfqi 1 cap PO Q8H PRN pain #20 caps 11/16/23 50 mg-300 mg-40 mg capsule (Fioricet) sumatriptan succinate 50 mg tablet 50 mg PO Q2H PRN migraine headache 11/16/23 (Imitrex) #10 tabs montelukast 10 mg tablet 10 mg PO DAILY ALLERGIC RHINITIS 11/20/23 30 days #30 tabs amoxicillin 875 mg-potassium 1 tab PO Q12H 7 days #14 tabs 01/21/24 clavulanate 125 mg tablet egeywxmeef-ypgltdxxlnnim-lrxruazh 1 cap PO TID PRN pain #10 caps 01/21/24 50 mg-300 mg-40 mg capsule (Fioricet) ibuprofen 600 mg tablet 600 mg PO Q6H PRN pain #20 tabs 01/21/24 sucralfate 1 gram tablet 1 g PO TID #90 tabs 11/04/24 Allergies Allergy/AdvReac Type Severity Reaction Status Date / Time apple [Apple] Allergy Severe ANAPHYLAXIS Verified 11/04/24 19:55 avocado [Avocado] Allergy Severe ANAPHYLAXIS Verified 11/04/24 19:55 fexofenadine [From RALPH] Allergy Severe ANAPHYLAXIS Verified 11/04/24 19:55 peanut [Peanut] Allergy Severe ANAPHYLAXIS Verified 11/04/24 19:55 acetaminophen [Percocet] Allergy Unknown nausea and Verified 11/04/24 19:55 vomiting oxycodone [From PERCOCET] AdvReac Severe NAUSEA, Verified 11/04/24 19:55 DIZZINESS, FALLS Review of Systems Review of Systems Yes all other systems are reviewed and are negative PMFSH Past Medical History Medical History Allergic rhinitis Asthma-COPD overlap syndrome GERD (gastroesophageal reflux disease) COPD (chronic obstructive pulmonary disease) Female pelvic pain Well woman exam Hypertension Anxiety Diabetes Surgical History Hx of tonsillectomy Hx of tubal ligation Hx of section Family History Family History Mother Diabetes HTN (hypertension) Social History Social History Household Members: None Housing: Apartment Alcohol intake: current Alcohol intake frequency: does not drink Patient Tobacco Use Status: Never used Tobacco Smoked in Last 30 Days: No Use of substances other than those prescribed or required for medical reasons: Yes Substance Use Type: Marijuana Advance Directives: No Advance Directives Information Provided: Yes Do you have a plan to hurt others: No Plan Current occupational status: disabled Sexual orientation: Straight/Heterosexual Gender identity: Female Physical Exam ED Vital Signs: Vital Signs - 24 hr 11/04/24 19:52 11/04/24 23:04 11/04/24 23:36 Temperature 97.5 F 97.7 F 97.9 F Pulse Rate 74 57 69 Respiratory Rate 18 18 16 Blood Pressure 181/89 H 176/79 H 172/76 H Pulse Oximetry 97 97 94 Oxygen Delivery Method Room Air Room Air Room Air 11/04/24 23:41 Temperature 97.9 F Pulse Rate 69 Respiratory Rate 16 Blood Pressure 172/76 H Pulse Oximetry 94 Oxygen Delivery Method Room Air BMI result Body Mass Index 26.0 Appearance: Alert. Oriented X3. No acute distress. Eyes: No pallor or icterus ENT: Pharynx normal. Oral Mucosa moist Neck: Normal inspection. Neck supple. CVS: Normal heart rate and rhythm. Pulses normal. Respiratory: No respiratory distress. Equal air entry bilateral, no wheezing/rales/rhonchi Abdomen: Soft and tender epigastric area no rebound tenderness or guarding negative Kaufman sign Bowel sounds are present, no mass palpable, no CVA tenderness Skin: Skin warm and dry. Normal skin color. Normal skin turgor. Extremities: No lower extremity edema. No calf tenderness Neuro: Oriented X 3. No motor deficit. Medical Decision Making Medical Decision Making MDM Narrative: Patient with 4-6 weeks epigastric pain clinically gastritis ultrasound abdomen was negative for gallstones labs are stable patient has responded to Maalox already on omeprazole will start patient on sucralfate advised to follow with PCP/wild oyster harvester Differential Diagnosis Differential Diagnoses: The differential diagnosis associated with the presentation includes Cholecystitis/pancreatitis/gastritis Lab Data MDM Lab Attestation statement: I reviewed the patient's lab results. 11/04/24 20:03 11/04/24 20:03 Labs: Lab Results 11/04/24 Range/Units 20:03 WBC 8.1 (4.8-10.8) X10*3/uL RBC 4.80 (4.20-5.50) X10*6/uL Hgb 13.8 (12.0-16.0) g/dl Hct 39.9 (37.0-47.0) % MCV 83.1 (80.0-98.0) fL MCH 28.8 (27.0-33.0) pg MCHC 34.6 (31.0-35.0) g/dl RDW 12.7 (11.0-16.0) % Plt Count 235 (160-400) X10*3/uL MPV 10.1 (9.4-12.3) fL Immature Gran % (Auto) 0.2 (0.0-0.4) % Neut % (Auto) 53.6 (45-73) % Lymph % (Auto) 36.4 (20-40) % Erath % (Auto) 6.6 (2-11) % Eos % (Auto) 2.6 (0-4) % Baso % (Auto) 0.6 (0-2) % Lymph # (Auto) 2.9 (1.2-4.9) X10*3/uL Erath # (Auto) 0.5 (0.1-1.2) X10*3/uL Eos # (Auto) 0.2 (0.0-0.4) X10*3/uL Baso # (Auto) 0.1 (0.0-0.2) X10*3/uL Abs Immat Gran (auto) 0.02 (0.00-0.03) X10*3/uL Absolute Neuts (auto) 4.3 (2.0-8.3) x10*3/uL Absolute Nucleated RBC 0.000 (0.0-0.012) X10*3/uL Nucleated RBC % (auto) 0.0 (0.0-0.2) /100WBC Sodium 138 (135-145) mmol/L Potassium 4.0 (3.3-5.1) mmol/L Chloride 101 (96-108) mmol/L Carbon Dioxide 27 (22-29) mmol/L Anion Gap 14 (12-20) BUN 16 (9-16) mg/dL Creatinine 0.65 (0.5-1.4) mg/dL Estim Creat Clear Calc 80.1 Estimated GFR > 60 Random Glucose 257 H (60-115) mg/dL Calcium 9.9 D (8.4-10.2) mg/dL Total Bilirubin 0.4 (0.0-1.0) mg/dL AST 21 (5-31) U/L ALT 23 (0-31) U/L Alkaline Phosphatase 85 (39-117) U/L Total Protein 7.5 (6.5-8.0) g/dL Albumin 4.8 (3.5-5.0) g/dL Lipase 14 (8-78) U/L Independent Interpretation I performed an independent interpretation of an: Ultrasound Radiology Impression Discussion of test interpretation with radiology: I have reviewed the radiologist's reading. Radiologist Impression: 1965 Acct:[id number] Age/Sex: 59 / F ADM Date: 11/04/24 Loc: .ED Attending Dr: Ordering Physician: Tuan Donnelly MD Date of Service: 11/04/24 Procedure(s): US abdomen limited Accession Number(s): [id number] cc: [facility]; Tuan Donnelly MD~ CLINICAL HISTORY: Upper abdomen? Gallstone, hepatobiliary US abdomen limited Comparison: None Findings: The visualized pancreas is normal. The aorta and inferior vena cava are normal caliber. The liver is enlarged and echogenic. Fat sparing in the gallbladder fossa region. There is no intrahepatic bile duct dilatation. The common duct is 4 mm in diameter. The gallbladder is normal. There is no sonographic Kaufman sign. The main portal vein is antegrade. The right kidney is 13.3 cm in length. 4.3 cm upper pole cyst noted. No ascites. IMPRESSION: Hepatomegaly with hepatic steatosis. This document has been electronically signed by: Yamil Ivy MD, PHD on 11/04/2024 23 Medications Administered Discontinued Medications Generic Name Dose Route Start Last Admin Trade Name Freq PRN Reason Stop Dose Admin Al Hydroxide/Mg Hydroxide 30 ml 11/04/24 22:12 11/04/24 22:50 Magnesium Hydrox/Alum Hydrox 30 Ml Oral.Susp PO 11/04/24 22:13 30 ml ONCE ONE Administration Discharge Plan Discharge Clinical Impression: GERD (gastroesophageal reflux disease) Patient Disposition: Home, Self-Care Instructions: GERD (Gastroesophageal Reflux Disease) (ED) Additional Instructions: Likely you have pain from gastritis continue your omeprazole Will start on sucralfate 1 tablet 1 hours prior to having meals Your ultrasound is negative for gallstones Avoid fried and spicy food Follow up with your PCP for further management if symptoms continues Prescriptions: New sucralfate 1 gram tablet 1 g PO TID Qty: 90 0RF No Action fluticasone propionate 50 mcg/actuation spray,suspension 2 spray intranasal DAILY Qty: 48 1RF montelukast 10 mg tablet 10 mg PO DAILY 30 Days Qty: 30 2RF fdmmqbpywu-weexbcgyqgzdp-ubwx [Fioricet] 50-300-40 mg capsule 1 cap PO TID PRN (Reason: pain) Qty: 10 0RF ibuprofen 600 mg tablet 600 mg PO Q6H PRN (Reason: pain) Qty: 20 0RF amoxicillin-pot clavulanate 875-125 mg tablet 1 tab PO Q12H 7 Days Qty: 14 0RF sumatriptan succinate [Imitrex] 50 mg tablet 50 mg PO Q2H PRN (Reason: migraine headache) Qty: 10 0RF Rx Instructions: do not exceed 2 doses per 24 hrs itsorfsyxw-nahsmlfrjmjku-hdrw [Fioricet] 50-300-40 mg capsule 1 cap PO Q8H PRN (Reason: pain) Qty: 20 0RF quetiapine 100 mg tablet 100 mg PO BEDTIME citalopram 10 mg tablet 10 mg PO QAM topiramate 50 mg tablet 50 mg PO BID lisinopril 40 mg tablet 40 mg PO DAILY glipizide 10 mg tablet 10 mg PO BID pravastatin 20 mg tablet 20 mg PO DAILY hydrochlorothiazide 50 mg tablet 50 mg PO DAILY cyclobenzaprine 5 mg tablet 10 mg PO BID famotidine 40 mg tablet 40 mg PO DAILY 30 Days Qty: 30 2RF loperamide 2 mg capsule 2 mg PO PRN pantoprazole 40 mg tablet,delayed release (DR/EC) 40 mg PO QAM acetaminophen 650 mg tablet extended release 650 mg PO PRN temazepam 15 mg capsule 15 mg PO BEDTIME PRN amoxicillin-pot clavulanate 875-125 mg tablet 1 tab PO BID PRN Jardiance 10 mg tablet 10 mg PO QAM Januvia 25 mg tablet 25 mg PO QAM cholecalciferol (vitamin D3) 25 mcg (1,000 unit) tablet 25 mcg PO QAM amlodipine 5 mg tablet 5 mg PO QAM cetirizine 10 mg tablet 10 mg PO QAM Interventions: ED Discharge Assessment Last Done: 11/04/24 23:41 Discharge Date/Time: 11/04/24 23:42 Print Language: Palestinian
[2024-11-04] MEDS: Magnesium Hydrox/Alum Hydrox 30 ML ORAL.SUSP PO (22:50)
--- NOTE | 2024-11-04 22:51 | PC.NURSE ---
Pt returned from US Pt reports 03/21 pain Pt medicated per mar Plan of care ongoing.
[2024-11-04 23:04] VITALS: BP 176/79; PULSE 57; RESP 18; TEMP 36.5; O2SAT 97
[2024-11-04 23:36] VITALS: BP 172/76; PULSE 69; RESP 16; TEMP 36.6; O2SAT 94
[2024-11-04 23:41] VITALS: BP 172/76; PULSE 69; RESP 16; TEMP 36.6; O2SAT 94
== END 2024-11-04 23:42 | disposition home or self-care (01) ==
PROVIDERS: Emergency Provider Internal Medicine
DX: K21.9 Gastro-esophageal reflux disease without esophagitis (principal); R10.13 Epigastric pain; E11.9 Type 2 diabetes mellitus without complications; I10 Essential (primary) hypertension; J45.909 Unspecified asthma, uncomplicated
CPT/HCPCS: 36415; 76705; 80053; 83690; 85025; 99284

== ENCOUNTER → 2024-11-04 22:11 | Outpatient (BNV) | payer MEDICAID, SELFPAY | PROVIDERS: Emergency Provider Internal Medicine; Visit Provider General Practice | DX: K76.0 Fatty (change of) liver, not elsewhere classified (principal); R16.0 Hepatomegaly, not elsewhere classified | CPT/HCPCS: 76705 ==

== ENCOUNTER 2024-11-12 11:08 | Outpatient (REF) | payer MEDICAID, SELFPAY ==
--- OUTSIDE RECORDS SUMMARY | 2024-11-12 12:50 | XMS_ITS | Clinical Summary ---
Author Organization [facility] Address [address] [place] [address] Phone Care Team Providers Care Price Changer Name Role Phone Karon Powell MD Primary Care Provide r Allergies Active Allergy Reactions Criticality Noted Date Comments Fexofenadine 06/14/2021 Oxycodone-Acetaminophen 06/14/2021 Medications topiramate (TOPAMAX) 50 MG tablet Take 50 mg by mouth 2 (two) times a day Active ergocalciferol 1.25 MG (72515 UT) capsule Take 50,000 Units by mouth [...] Insurance Medicaid [place] Medicaid [place] Care Teams Price Changer Relationship Specialty Start Date End Date Karon Powell MD [address] [place] [phone] PCP - General Internal Medicine 05/05/21
[2024-11-12 13:06] LABS: Appearance Urine Clear; Color Urine Yellow; Glucose Urine UA >=1000 mg/dL (Negative); Leukocyte Esterase Urine Negative (Negative); Nitrite Urine Negative (Negative); Specific Gravity - Urine >= 1.030 (1.005-1.025); UMIC TRIGGER UA YES; Urine Blood Negative (Negative); Urine Ketones Trace mg/dL (Negative); Urine Protein Negative (Neg-Trace)
[2024-11-12 13:12] LABS: Bacteria Urine 1+ (None Seen); Hyaline Casts Urine 0-2 /LPF (0-2); RBC Urine 0-2 /HPF (0-2); WBC Urine 0-5 /HPF (0-5)
[2024-11-12 14:26] LABS: Creatinine Urine 40.43 mg/dL; Microalbum/Creatinine Ratio Ur 27.2 ug/mg cr (<30)
[2024-11-12 14:27] LABS: Alanine Aminotransferase 23 U/L (0-31); Albumin Level 4.8 g/dL (3.5-5.0); Alkaline Phosphatase 94 U/L (39-117); Anion Gap 13 (12-20); Aspartate Amino Transferase 20 U/L (5-31); Bilirubin Total 0.3 mg/dL (0.0-1.0); Blood Urea Nitrogen 20 mg/dL (9-16); Calcium 9.8 mg/dL (8.4-10.2); Carbon Dioxide 31 mmol/L (22-29); Chloride 104 mmol/L (96-108); Cholesterol 267 mg/dL (<200); Estimated Glomerular Filt Rate > 60; Glucose Random 246 mg/dL (60-115); HDL Cholesterol 48 mg/dL (>40); LDL Cholesterol Calculated 192 mg/dL (<100); Potassium 4.3 mmol/L (3.3-5.1); Sodium 144 mmol/L (135-145); Total Protein 7.6 g/dL (6.5-8.0); Triglycerides 137 mg/dL (<150)
== END 2024-11-12 11:09 | disposition home or self-care (01) ==
LOC: HO.HHCL 11:08
PROVIDERS: Internal Medicine Hypertension Specialist; Visit Provider Internal Medicine
DX: E11.65 Type 2 diabetes mellitus with hyperglycemia (principal)
CPT/HCPCS: 36415; 80053; 80061; 81001; 81003; 82043; 82570

== ENCOUNTER 2024-12-10 13:42 | Outpatient (REF) | payer MEDICAID, SELFPAY ==
--- OUTSIDE RECORDS SUMMARY | 2024-12-10 14:50 | XMS_ITS | Clinical Summary ---
Author Organization [facility] Address [address] [place] [phone] Phone Care Team Providers Care Head School Custodian Name Role Phone Karon Powell MD Primary Care Provide r Allergies Active Allergy Reactions Criticality Noted Date Comments Fexofenadine 06/14/2021 Oxycodone-Acetaminophen 06/14/2021 Medications topiramate (TOPAMAX) 50 MG tablet Take 50 mg by mouth 2 (two) times a day Active ergocalciferol 1.25 MG (39115 UT) capsule Take 50,000 Units by mouth [...] Insurance Medicaid [place] Medicaid [place] Care Teams Head School Custodian Relationship Specialty Start Date End Date Karon Powell MD [address] [place] [phone] PCP - General Internal Medicine 05/05/21
--- OUTSIDE RECORDS SUMMARY | 2024-12-10 14:50 | XMS_ITS | Encounter Summary ---
Author Organization [employer] Address [address] [facility] 7t [place] [address] Care Team Providers Care Grinding Machine Operator Portable Name Role Phone Karon Powell MD Primary Care Provide r Reason for Visit * Reason Onset Date Comments Med Refill 08/16/2022 Encounter Details Date Type Department Care Team ([facility] st Contact Info) Description 08/16/[address] [facility] MEDICINE [address] [place] [address] Karon Powell MD [address] [place] [address] Med Refill Social History Tobacco Use Types [...] Dr. Aleman * Telephone Encounter - Hernando Mendenhalljovana Geiger - 08/16/2022 3:36 PM EST Tc from pt requesting a med refill for topiramate (Topamax) 25 MG tablet SUMAtriptan (Imitrex) 50 MG tablet Please sent to [facility] - [place] - [address] Please contact pt at [phone] documented in this encounter Plan of Treatment Upcoming Encounters Date Type Department Care Team (Late st Contact Info) Description 12/23/2024 2:00 PM EDT Medication Management [facility] MEDICINE [address] [place] [address] Morris Beck, PharmD [address] [place] [address] 05/12/2025 2:30 PM EST Office Visit [facility] OPTOMETRY [address] [place] [address] Evita Magaña, OD [address] [place] [address] documented as of this encounter Visit Diagnoses Not on filedocumented in this encounter Care Teams Grinding Machine Operator Portable Relationship Specialty Start Date End Date Karon Powell MD [address] [place] [address] PCP - General Family Medicine 09/10/18 documented as of this encounter
[2024-12-10 15:06] LABS: Appearance Urine Clear; Glucose Urine UA >=1000 mg/dL (Negative); PH 5.5 (5.0-9.0); Specific Gravity - Urine >= 1.030 (1.005-1.025); UMIC TRIGGER UA YES
[2024-12-10 15:32] LABS: Anion Gap 16 (12-20); Blood Urea Nitrogen 15 mg/dL (9-16); Calcium 9.8 mg/dL (8.4-10.2); Carbon Dioxide 28 mmol/L (22-29); Chloride 102 mmol/L (96-108); Estimated Glomerular Filt Rate > 60; Potassium 4.0 mmol/L (3.3-5.1); Sodium 142 mmol/L (135-145)
[2024-12-10 15:43] LABS: Total Protein Urine Random 9 mg/dL (<12)
== END 2024-12-10 13:43 | disposition home or self-care (01) ==
LOC: HO.LAB 13:42
PROVIDERS: PCP Internal Medicine; Visit Provider Internal Medicine Hypertension Specialist
DX: I10 Essential (primary) hypertension (principal)
CPT/HCPCS: 36415; 80048; 81001; 81003; 82570; 84156; 99212

== ENCOUNTER 2024-12-10 14:05 | Outpatient (AMB) | payer MEDICAID, SELFPAY ==
[2024-12-10 14:07] VITALS: BP 156/82; PULSE 90; O2SAT 96; BMI 25.6
--- NOTE | 2024-12-10 14:07 | HO.NEPHOV_ITS ---
Vital Signs 12/10/24 14:07 12/10/24 14:25 Height 5 ft 2 in Weight 140 lb BMI 25.6 BP 156/82 H 140/80 H Blood Pressure Location Rt brachial Rt brachial Position Sitting Sitting Pulse 90 Pulse Source Pulse Oximeter Pulse Oximetry (%) 96 Oxygen Delivery Method Room Air Intake Visit Reasons: 6 mnts f/u appt/ Conf Greenskeeper Laborer Required: No Greenskeeper Laborer Services: Greenskeeper Laborer Offered & Declined Accompanied by: Self / Same As Patient Allergies apple (Apple) Allergy (Severe, Verified 12/10/24 14:09) ANAPHYLAXIS avocado (Avocado) Allergy (Severe, Verified 12/10/24 14:09) ANAPHYLAXIS fexofenadine (From RALPH) Allergy (Severe, Verified 12/10/24 14:09) ANAPHYLAXIS peanut (Peanut) Allergy (Severe, Verified 12/10/24 14:09) ANAPHYLAXIS acetaminophen (Percocet) Allergy (Unknown, Verified 12/10/24 14:09) nausea and vomiting oxycodone (From PERCOCET) Adverse Reaction (Severe, Verified 12/10/24 14:09) NAUSEA, DIZZINESS, FALLS Medication List - Last Reconciled 12/10/24 by Xiang Eddy MD acetaminophen ER 650 mg PO PRN amlodipine 5 mg PO QAM amoxicillin-pot clavulanate 875-125 mg 1 tab PO Q12H 7 days amoxicillin-pot clavulanate 875-125 mg 1 tab PO BID PRN vemfgkfpdf-ustjjlaruiumc-wqhl 50-300-40 mg (Fioricet) 1 cap PO Q8H PRN pusniujjlx-eradcwjaccvsq-enyp 50-300-40 mg (Fioricet) 1 cap PO TID PRN cetirizine 10 mg PO QAM cholecalciferol (vitamin D3) 25 mcg PO QAM citalopram 10 mg PO QAM cyclobenzaprine 10 mg PO TID PRN empagliflozin (Jardiance) 25 mg PO DAILY famotidine 40 mg PO DAILY 30 days fluticasone propionate 50 mcg/actuation 2 sprays intranasal DAILY glipizide 10 mg PO BID hydrochlorothiazide 50 mg PO DAILY ibuprofen 600 mg PO Q6H PRN lisinopril 40 mg PO DAILY loperamide 2 mg PO PRN montelukast 10 mg PO DAILY 30 days omeprazole 40 mg PO QAM ondansetron HCl 8 mg PO Q8H PRN pantoprazole 40 mg PO QAM pravastatin 20 mg PO DAILY quetiapine 100 mg PO BEDTIME sitagliptin phosphate (Januvia) 25 mg PO QAM sucralfate 1 g PO TID sumatriptan succinate (Imitrex) 50 mg PO Q2H PRN temazepam 15 mg PO BEDTIME PRN topiramate 50 mg PO BID HPI Comments Details: Middle-aged woman with resistant hypertension here for follow-up. She has been compliant with her medications. No new issues today. 06/17/24 Overall doing well. Took meds late 12/10/24 Here for follow up. No new issues PFSH Medical History Allergic rhinitis Asthma-COPD overlap syndrome GERD (gastroesophageal reflux disease) COPD (chronic obstructive pulmonary disease) Female pelvic pain Well woman exam Hypertension Anxiety Diabetes Surgical History Hx of tonsillectomy Hx of tubal ligation Hx of section Family History Mother Diabetes HTN (hypertension) Social History Household Members: None Housing: Apartment Alcohol intake: current Alcohol intake frequency: does not drink Patient Tobacco Use Status: Never used Tobacco Substance Use Type: Marijuana Current occupational status: disabled Sexual orientation: Straight/Heterosexual Gender identity: Female Physical Exam Vital Signs: Last Vital Signs Pulse 90 12/10/24 14:07 BP 140/80 H 12/10/24 14:25 Pulse Ox 96 12/10/24 14:07 Oxygen Delivery Method Room Air 12/10/24 14:07 BMI result Body Mass Index 25.6 Comfortable Neck supple no JVD. Lungs entry equal no rales. Heart S1-S2 heard no gallop or rub. Abdomen soft nontender. Neuro alert awake oriented. No asterixis. Extremities no edema. Results Reviewed Nephrology Results: Hgb, (12.0-16.0) 13.8 g/dl 11/04/24 WBC, (4.8-10.8) 8.1 X10*3/uL 11/04/24 Plt Count, (160-400) 235 X10*3/uL 11/04/24 Sodium, (135-145) 144 mmol/L 11/12/24 Potassium, (3.3-5.1) 4.3 mmol/L 11/12/24 Chloride, (96-108) 104 mmol/L 11/12/24 Carbon Dioxide, (22-29) 31 mmol/L H 11/12/24 BUN, (9-16) 20 mg/dL H 11/12/24 Creatinine, (0.5-1.4) 0.72 mg/dL 11/12/24 Calcium, (8.4-10.2) 9.8 mg/dL 11/12/24 Urine Protein, (Neg-Trace) Negative mg/dL 11/12/24 Urine Creatinine 40.43 mg/dL 11/12/24 Assessment & Plan Assessment & Plan (1) Hypertension: Code(s): I10 - Essential (primary) hypertension Category: Medical Plan: 59 year-old woman with essential hypertension Blood pressure acceptable Initial reading was elevated Repeat was 140/80 Discussed low-salt diet. I would continue the current regimen. No changes were made to her prescriptions today. Orders: Orders Basic Metabolic Panel 6 Months I10 - Essential (primary) hypertension Coding Level of Care Code Est Pt Level 4 (97950) Diagnoses Hypertension I10
[2024-12-10 14:25] VITALS: BP 140/80
== END 2024-12-10 14:28 | disposition home or self-care (01) ==
LOC: HO.HKA 14:06
PROVIDERS: PCP Internal Medicine; Visit Provider Internal Medicine Hypertension Specialist
DX: I10 Essential (primary) hypertension (principal)
CPT/HCPCS: 99214

== ENCOUNTER 2025-05-30 12:56 | Outpatient (REF) | payer MEDICAID, SELFPAY ==
--- NOTE | ~2025-05-30 | MM_ITS ---
EXAMINATION: MM SCREENING DIGITAL BREAST TOMOSYNTHESIS, BILATERAL CLINICAL INFORMATION: Screening. Asymptomatic. COMPARISON: Mammography: Comparison is made with available priors TECHNIQUE: Digital breast mammography with tomosynthesis is performed in both the craniocaudal and mediolateral oblique views along with computer-aided detection (CAD). FINDINGS: The breasts are heterogeneously dense, which may obscure small masses. There are no significant masses, abnormal calcifications, or other abnormalities. MM/MM tomosynthesis screening BI IMPRESSION: No mammographic evidence of malignancy. ASSESSMENT: BI-RADS Category 1: Negative RECOMMENDATION: Routine annual mammography screening. 1 year F/U This examination should not preclude the clinical evaluation of a suspicious palpable abnormality. This patient's information was entered into a reminder system with a target due date for their next mammogram. Electronically signed by: Ariadna Stovall DO 06/03/2025 10:37 AM S[facility]
--- OUTSIDE RECORDS SUMMARY | 2025-05-30 14:44 | XMS_ITS | Encounter Summary ---
Author Organization [employer] Address [address] [facility] 7t [place] [address] Care Team Providers Care Media Sales Representative Name Role Phone Karon Powell MD Primary Care Provide r Morris Beck PharmD Unavailable [phone] Reason for Visit * Reason Onset Date Comments Med Refill 08/16/2022 Encounter Details Date Type Department Care Team (Late st Contact Info) Description 08/16/2022 Telephone [facility] MEDICINE [address] [place] [address] Karon Powell MD [address] [place] [address] Med Refill Social History Tobacco Use Types [...] Dr. Aleman * Telephone Encounter - Hernando Geiger - 08/16/2022 3:36 PM EST Tc from pt requesting a med refill for topiramate (Topamax) 25 MG tablet SUMAtriptan (Imitrex) 50 MG tablet Please sent to [facility] - [place] - [address] Please contact pt at [phone] documented in this encounter Plan of Treatment Not on file documented as of this encounter Visit Diagnoses Not on filedocumented in this encounter Care Teams Media Sales Representative Relationship Specialty Start Date End Date Karon Powell MD [address] [place] [address] PCP - General Family Medicine 09/10/18 Morris Beck, WarrenD [address] [place] [address] Pharmacist Pharmacy 01/06/25 documented as of this encounter
--- OUTSIDE RECORDS SUMMARY | 2025-05-30 14:44 | XMS_ITS | Encounter Summary ---
Author Organization [employer] Address [address] [facility] 7t [place] [address] Care Team Providers Care Personal Lines Agent Name Role Phone Karon Powell MD Primary Care Provide r Morris Beck PharmD Unavailable [phone] Encounter Details Date Type Department Care Team ([facility] st Contact Info) Description 05/26/2025 Telephone [facility] MEDICINE [address] [place] [address] Karon Powell MD [address] [place] [address] Social History Tobacco Use Types Packs/Day Years [...] AM EDT documented as of this encounter Miscellaneous Notes * Telephone Encounter - Mohsen Álvarez - 05/26/2025 11:55 AM EST FYI to PCP - Patient unable to be contacted for CDTM The pharmacy team has made >3 attempts to schedule patient for visit with pharmacy staff. At this time no further outreach attempts will be made until a new referral is sent. Voicemail/letter to patient today to notify them; they may also call in at later date if interestedin scheduling an appointment at a future time. documented in this encounter Plan of Treatment Not on file documented as of this encounter Goals Goal Patient Goal Type Associated Problems Recent Progress Patient-Stated? Author Help patients manage their type 2 diabetes Care Plan Help patients manage their type 2 diabetes No Vielka Couch LPN Weekly blood pressure task Care Plan Weekly blood pressure task No Vielka Couch LPN Help patients manage their type 2 diabetes Care Plan Help patients manage their type 2 diabetes No Vielka Couch LPN Patient has chronic kidney disease Care Plan Patient has chronic kidney disease No Vielka Couch LPN Weekly blood pressure task Care Plan Weekly blood pressure task No Evita Magaña OD Weekly blood pressure task Care Plan Weekly blood pressure task No Gómez, Evita, OD Patient has chronic kidney disease Care Plan Patient has chronic kidney disease No Evita Magaña, OD Patient has chronic kidney disease Care Plan Patient has chronic kidney disease No Phil Magañan, OD Weekly blood pressure task Care Plan Weekly blood pressure task No Charmaine Álvarez Weekly blood pressure task Care Plan Weekly blood pressure task No Charmaine Álvarez Patient has chronic kidney disease Care Plan Patient has chronic kidney disease No Charmaine Álvarez Patient has chronic kidney disease Care Plan Patient has chronic kidney disease No Charmaine Álvarez Weekly blood pressure task Care Plan Weekly blood pressure task No Mohsen Álvarez Weekly blood pressure task Care Plan Weekly blood pressure task No Mohsen Álvarez Patient has chronic kidney disease Care Plan Patient has chronic kidney disease No Mohsen Álvarez Patient has chronic kidney disease Care Plan Patient has chronic kidney disease No Mohsen Álvarez Weekly blood pressure task Care Plan Weekly blood pressure task No Mohsen Álvarez Weekly blood pressure task Care Plan Weekly blood pressure task No Mohsen Álvarez Patient has chronic kidney disease Care Plan Patient has chronic kidney disease No Mohsen Álvarez Patient has chronic kidney disease Care Plan Patient has chronic kidney disease No Mohsen Álvarez Weekly blood pressure task Care Plan Weekly blood pressure task No Mohsen Álvarez Weekly blood pressure task Care Plan Weekly blood pressure task No Mohsen Álvarez Patient has chronic kidney disease Care Plan Patient has chronic kidney disease No Mohsen Álvarez Patient has chronic kidney disease Care Plan Patient has chronic kidney disease No Mohsen Álvarez documented as of this encounter Visit Diagnoses Not on filedocumented in this encounter Additional Health Concerns Active Problems Noted Date Diagnosed Date Help patients manage their type 2 diabetes 05/07 Weekly blood pressure task 05/07/2025 Help patients manage their type 2 diabetes 05/07 Patient has chronic kidney disease 05/07/2025 Weekly blood pressure task 05/12/2025 Weekly blood pressure task 05/12/2025 Patient has chronic kidney disease 05/12/2025 Patient has chronic kidney disease 05/12/2025 Weekly blood pressure task 05/12/2025 Weekly blood pressure task 05/12/2025 Patient has chronic kidney disease 05/12/2025 Patient has chronic kidney disease 05/12/2025 Weekly blood pressure task 05/14/2025 Weekly blood pressure task 05/14/2025 Patient has chronic kidney disease 05/14/2025 Patient has chronic kidney disease 05/14/2025 Weekly blood pressure task 05/19/2025 Weekly blood pressure task 05/19/2025 Patient has chronic kidney disease 05/19/2025 Patient has chronic kidney disease 05/19/2025 Weekly blood pressure task 05/26/2025 Weekly blood pressure task 05/26/2025 Patient has chronic kidney disease 05/26/2025 Patient has chronic kidney disease 05/26/2025 Assessment Noted Time PHQ-9 Depression Total Score: 0 12/27/19 3:15 PM EDT documented as of this encounter Care Teams Personal Lines Agent Relationship Specialty Start Date End Date Karon Powell MD [address] [place] [address] PCP - General Family Medicine 09/10/18 Morris Beck, WarrenD [address] [place] [address] Pharmacist Pharmacy 01/06/25 documented as of this encounter
--- OUTSIDE RECORDS SUMMARY | 2025-05-30 14:44 | XMS_ITS | Encounter Summary ---
Author Organization [employer] Address [address] [facility] 7t [place] [address] Care Team Providers Care Architecture Internship Name Role Phone Karon Powell MD Primary Care Provide r Morris Beck PharmD Unavailable [phone] Reason for Visit * Reason Comments Med Refill Encounter Details Date Type Department Care Team (Late st Contact Info) Description 05/07/2025 Refill [facility] MEDICINE [address] [place] [address] Morris Beck, PharmD [address] [place] [address] Type 2 diabetes mellitus with hyperglycemia, without long-term current use of insulin (HCC) Social History Tobacco Use Types Packs/Day Years [...] as of this encounter Plan of Treatment Not on [...] Help patients manage their type 2 diabetes Vielka Reyes LPN Patient has chronic kidney disease Care Plan Patient has chronic kidney disease No Vielka Couch LPN documented as of this encounter Visit Diagnoses Diagnosis Type 2 diabetes mellitus with hyperglycemia, without long-term current use of insulin (HCC) documented in this encounter Additional Health Concerns Active Problems Noted Date Diagnosed Date Help patients manage their type 2 diabetes 05/07 Weekly blood pressure task 05/07/2025 Help patients manage their type 2 diabetes 05/07 Patient has chronic kidney disease 05/07/2025 Assessment Noted Time PHQ-9 Depression Total Score: 0 12/27/19 24 3:15 PM EDT documented as of this encounter Care Teams Architecture Internship Relationship Specialty Start Date End Date Karon Powell MD [address] [place] [id number] PCP - General Family Medicine 09/10/18 Morris Beck, PharmD [address] [place] [address] [place] [address] Pharmacist Pharmacy 01/06/25 documented as of this encounter
--- OUTSIDE RECORDS SUMMARY | 2025-05-30 14:45 | XMS_ITS | Encounter Summary ---
Author Organization [employer] Address [address] [facility] 7t [place] [address] Care Team Providers Care Drum Reel Cutter Name Role Phone Karon Powell MD Primary Care Provide r Morris Beck PharmD Unavailable [phone] Reason for Visit * Reason Comments Med Refill Encounter Details Date Type Department Care Team (Late st Contact Info) Description 09/17/2023 Refill [facility] MEDICINE [address] [place] [address] Karon Powell MD [address] [place] [address] Essential hypertension Social History Tobacco Use Types [...] your housing situation today? I have sean sing 06/22/[address] you li [...] documented as of this encounter Care Teams Drum Reel Cutter Relationship Specialty Start Date End Date Karon Powell MD [address] [place] [address] PCP - General Family Medicine 09/10/18 Morris Beck, WarrenD [address] [place] [address] Pharmacist Pharmacy 01/06/25 documented as of this encounter
--- OUTSIDE RECORDS SUMMARY | 2025-05-30 14:45 | XMS_ITS | Encounter Summary ---
Author Organization [employer] Address [address] [place] [address] 7t [place] [address] Care Team Providers Care Frame And Scrap Crusher Name Role Phone Karon Powell MD Primary Care Provide r Morris Beck PharmD Unavailable [phone] Encounter Details Date Type Department Care Team (Late st Contact Info) Description 07/08/2022 Telephone [facility] MEDICINE [address] [place], [place] [phone] Natasha Siu LPN Social History Tobacco Use [...] on filedocumented in this encounter Care Teams Frame And Scrap Crusher Relationship Specialty Start Date End Date Karon Powell MD [address] [place], [place] [phone] PCP - General Family Medicine 09/10/18 Morris Beck, PharmD [address] [place], [place] [phone] Pharmacist Pharmacy 01/06/25 documented as of this encounter
--- OUTSIDE RECORDS SUMMARY | 2025-05-30 14:45 | XMS_ITS | Encounter Summary ---
Author Organization [employer] Address [address] [facility] 7t [place] [address] Care Team Providers Care Physical Fitness Trainer Name Role Phone Karon Powell MD Primary Care Provide r Morris Beck PharmD Unavailable [phone] Reason for Visit * Reason Onset Date Comments Nurse Triage 11/06/2024 Encounter Details Date Type Department Care Team (Late st Contact Info) Description 11/06/2024 Telephone [facility] MEDICINE [address] [place] [address] Karon Powell MD [address] [place] [address] Nurse Triage Social History Tobacco Use Types Packs/Day Years [...] encounter Miscellaneous Notes * Telephone Encounter - Yulisa Hill - 11/06/2024 2:41 PM EDT Patient calling to report ED visit on : Date: 11/04/2024 [place] [facility] [place] Seen for: Gastritis Symptomatic Yes *if yes message should go to Triage Patient advised will forward to team nurse for follow up Symptom: Abdominal Pain - Female - Not Outcome: Talk to a nurse or provider within 15 minutes Reason: Severe pain now The caller accepted this outcome. documented in this encounter Plan of Treatment Not on file documented as of this encounter Visit Diagnoses Not on filedocumented in this encounter Additional Health Concerns Assessment Noted Time PHQ-9 Depression Total Score: 0 12/27/19 24 3:15 PM EDT documented as of this encounter Care Teams Physical Fitness Trainer Relationship Specialty Start Date End Date Karon Powell MD [address] [place] [address] PCP - General Family Medicine 09/10/18 Morris Beck, PharmD [address] [place] [address] Pharmacist Pharmacy 01/06/25 documented as of this encounter
--- OUTSIDE RECORDS SUMMARY | 2025-05-30 14:45 | XMS_ITS | Encounter Summary ---
Author Organization [employer] Address [address] [facility] 7t [place] [address] Care Team Providers Care Returned Telephone Equipment Appraiser Name Role Phone Karon Powell MD Primary Care Provide r Morris Beck PharmD Unavailable [phone] Reason for Visit * Reason Comments Med Refill Encounter Details Date Type Department Care Team (Late st Contact Info) Description 09/02/2023 Refill [facility] [address] [place] [address] Karon Powell MD [address] [place] [address] Chronic pain of right knee Social History [...] documented as of this encounter Care Teams Returned Telephone Equipment Appraiser Relationship Specialty Start Date End Date Karon Powell MD [address] [place] [address] PCP - General Family Medicine 09/10/18 Morris Beck, WarrenD [address] [place] [address] Pharmacist Pharmacy 01/06/25 documented as of this encounter
--- OUTSIDE RECORDS SUMMARY | 2025-05-30 14:45 | XMS_ITS | Clinical Summary ---
Author Organization [facility] Address [address] [place] [phone] Phone Care Team Providers Care Cop Winder Name Role Phone Karon Powell MD Primary Care Provide r Allergies Active Allergy Reactions Criticality Noted Date Comments Fexofenadine 06/14/2021 Oxycodone-Acetaminophen 06/14/2021 Medications topiramate (TOPAMAX) 50 MG tablet Take 50 mg by mouth 2 (two) times a day Active ergocalciferol 1.25 MG (04878 UT) capsule Take 50,000 Units by mouth [...] Cancer Screening: Sigmoidoscopy 2012 Influenza Vaccine (#1) 2025 Hepatitis B Vaccine Aged Out No longe r eligible based on patient's age to complete this topic Insurance Medicaid [place] Medicaid [place] Care Teams Cop Winder Relationship Specialty Start Date End Date Karon Powell MD [address] [place] [phone] PCP - General Internal Medicine 05/05/21
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
--- OUTSIDE RECORDS SUMMARY | 2025-05-30 14:45 | XMS_ITS | Encounter Summary ---
Author Organization [employer] Address [address] [facility] [address] [place] [address] Care Team Providers Care Barrel Lathe Operator Outside Name Role Phone Karon Powell MD Primary Care Provide r Morris Beck PharmD Unavailable Reason for Visit * Reason Comments Med Refill Encounter Details Date Type Department Care Team (Late st Contact Info) Description 05/24/2024 Refill [facility] [address] [place] [address] Abbey Mcdowell MD [address] [place] [address] Chronic pain of right knee Social History [...] documented as of this encounter Care Teams Barrel Lathe Operator Outside Relationship Specialty Start Date End Date Karon Powell MD [address] [place] [address] PCP - General Family Medicine 09/10/18 Morris Beck, [place] [address] [place] [address] Pharmacist Pharmacy 01/06/25 documented as of this encounter
--- OUTSIDE RECORDS SUMMARY | 2025-05-30 14:45 | XMS_ITS | Encounter Summary ---
Author Organization [employer] Address [address] [facility] [address]t [place] [address] Care Team Providers Care Geriatric Personal Care Aide Name Role Phone Karon Powell MD Primary Care Provide r Morris Beck PharmD Unavailable [phone] Reason for Visit * Reason Comments Med Refill Encounter Details Date Type Department Care Team (Late st Contact Info) Description 05/27/2024 Refill [facility] [address] [place] [address] Abbey Mcdowell MD [address] [place] [address] Chronic right shoulder pain Social History Tobacco [...] documented as of this encounter Care Teams Geriatric Personal Care Aide Relationship Specialty Start Date End Date Karon Powell MD [address] [place] [address] PCP - General Family Medicine 09/10/18 Morris Beck, WarrenD [address] [place] [address] Pharmacist Pharmacy 01/06/25 documented as of this encounter
--- OUTSIDE RECORDS SUMMARY | 2025-05-30 14:45 | XMS_ITS | Encounter Summary ---
Author Organization [employer] Address [address] [place] [address] Care Team Providers Care Account Services Analyst Name Role Phone Karon Powell MD Primary Care Provide r Morris Beck PharmD Unavailable [phone] Encounter Details Date Type Department Care Team ([facility] st Contact Info) Description 03/07/2023 Orders Only [facility] [address] [place] [address] Provider, Historical, Social History Tobacco Use Types Packs/Day Years [...] on file documented as of this encounter Procedures Procedure [...] documented as of this encounter Care Teams Account Services Analyst Relationship Specialty Start Date End Date Karon Powell MD [address] [place], [place] [id number] PCP - General Family Medicine 09/10/18 Morris Beck, PharmD [address] [place] [address] Pharmacist Pharmacy 01/06/25 documented as of this encounter
== END 2025-05-30 12:57 | disposition home or self-care (01) ==
LOC: HO.MAMMO 12:56
PROVIDERS: PCP Internal Medicine; Visit Provider Internal Medicine
DX: Z12.31 Encounter for screening mammogram for malignant neoplasm of breast (principal)
CPT/HCPCS: 77063; 77067

== ENCOUNTER → 2025-05-30 13:00 | Outpatient (BNV) | payer MEDICAID, SELFPAY | PROVIDERS: PCP Internal Medicine; Visit Provider Internal Medicine | DX: Z12.31 Encounter for screening mammogram for malignant neoplasm of breast (principal) | CPT/HCPCS: 77063; 77067 ==